=== PATIENT | female | born 1995 | race Caucasian/White ===

== ENCOUNTER → 2017-12-13 07:47 | Outpatient (CLI) | payer OTHER, SELFPAY ==
--- NOTE | 2017-12-13 07:53 | RAD_ITS ---
STUDY: X-RAY - LEFT HAND, ATTENTION LEFT THUMB. REASON FOR EXAM: Female, 22 years old. Pain along the distal aspect of the thumb following injury. TECHNIQUE: 3 view(s) of the finger were obtained. COMPARISON: None. FINDINGS: Normal metacarpal head. Normal metacarpophalangeal joint. Normal proximal phalanx. Normal middle phalanx. Normal distal phalanx. Normal distal interphalangeal joint. RAD/Finger(s) Min 2 Views IMPRESSION: Normal x-ray examination of the finger. Electronically Signed: Federico Caal MD at 15:52 EDT Tel [phone], Service support ,
== END ==
PROVIDERS: Family Provider Family Medicine; PCP Family Medicine; Visit Provider Physician Assistant
DX: S69.92XA Unspecified injury of left wrist, hand and finger(s), initial encounter (principal); X58.XXXA Exposure to other specified factors, initial encounter
CPT/HCPCS: 73140

== ENCOUNTER 2018-03-15 08:40 | Emergency (ER) | payer OTHER, SELFPAY ==
[2018-03-15 08:41] VITALS: BP 152/89; PULSE 91; RESP 20; TEMP 35.5; O2SAT 95; BMI 44.9
[2018-03-15 09:20] VITALS: BP 125/90; PULSE 79; RESP 18; O2SAT 95
--- NOTE | 2018-03-15 09:48 | EKG12_ITS ---
Test Reason : CP Blood Pressure : / mmHG Vent. Rate : 089 BPM Atrial Rate : 089 BPM P-R Int : 132 ms QRS Dur : 086 ms QT Int : 360 ms P-R-T Axes : 031 027 017 degrees QTc Int : 438 ms Normal sinus rhythm Normal ECG Confirmed by BECKY DOHERTY, ELISEO ([id number]), assignment editor RICKI AGUILAR ([id number]) on 03/19/2018 3:44:10 PM Referred By: EDGAR/CLAUDE Confirmed By:ELISEO PENA MD
--- NOTE | 2018-03-15 09:49 | ED.VIS.GEN ---
History of Present Illness Chief Complaint: Chest Pain Informant: Patient Onset: Today, Hours - 2 Context: Gradual Onset - quickly, while sitting at work. no injury. Timing: Continuous Quality: sore/ache Location: central chest. no radiation Current Severity: Moderate Maximum Severity: Moderate Worsened by: palpation, movement, deep breathing Relieved by: rest, breathing easy Associated Symptoms: feels a little sob. otherwise, none. Narrative: No recent leg pain or swelling. No discomfort in her arm, jaw, back. No recent cough or respiratory infection. No nausea or vomiting or palpitations or presyncopal symptoms. 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 Denies any injury or obvious reason for this that she could have had yesterday and did not work yesterday. No recent travel or immobilization or hospitalization or other illness. No recent leg injury. Recent Illness/Hospitalization: No Past Medical History - Allergies and Home Meds Allergies/Adverse Reactions: Allergies No Known Allergies Allergy (Verified 03/15/18 09:49) Primary Care Physician: Aneesh Hauser III, MD [Primary Care Provider] - Past Medical History: None Smoking Status: Never smoker Alcohol: None Drugs: None Review of Systems All systems negative except as indicated Cardiovascular: Reports: Chest pain Respiratory: Reports: Dyspnea Physical Exam Vital Signs/Narrative: Vital Signs Temp Pulse Resp BP Pulse Ox 03/15/18 09:20 79 18 125/90 H 95 03/15/18 08:41 96 F L 91 20 H 152/89 H 95 Inital Vital Signs reviewed: Yes General: Well nourished, Well developed, Obese, - - Well-appearing in no acute distress Head: Normocephalic, Atraumatic Eyes: Perrl, EOMI ENT: Moist mucous membranes, No rhinorrhea Neck: Supple, Nontender Cardiovascular: Regular rate, Regular rhythm, No murmurs. Negative for: Tachycardia Respiratory: No distress, CTA bilaterally, Chest tenderness - Centrally, reproducing her discomfort. Pain also reproduced by adducting her hands together out in front of her against resistance. Abdomen: Soft, Nontender, Nondistended, Normal bowel sounds Back: Nontender, Normal Inspection Extremities: Nontender - Negative Homans, No edema Skin: Normal color, No rash Neurological: Alert, Oriented x3, Cranial nerves II-XII grossly intact, Normal Strength, Normal Sensation, Normal Gait Psychological: Normal affect Diagnostic/Tx/Re-eval - Rhythm Strip Rhythm Strip: Sinus Rhythm Rate: 89 Ectopy: None - EKG 1 Interpretation: Sinus Rhythm, No Acute Injury Pattern, - - Normal EKG Prior: Unchanged - Medical Decision Making This clearly is chest wall in etiology. Her EKG is normal, her vital signs are normal, her PERC score is 0. She is given a dose of naproxen, she is asking for a note off of work for the rest of the day although I think physically she is able to go back. Recommend [id number] NSAIDs, other measures of supportive care, follow-up as needed if persistent. ED Disposition - Plan for ED Patient: Disposition: Home or Assisted Living Chief Complaint: Chest Pain Diagnosis: Chest wall pain Instructions: ED Chest Pain Costochondritis Referrals: Aneesh Hauser III, MD [Primary Care Provider] - (as needed if not improved in 5 days) Additional Instructions: ibuprofen or aleve as needed for pain
[2018-03-15] MEDS: Naproxen 500 MG Tablet PO (09:59)
[2018-03-15 10:00] VITALS: BP 145/85; PULSE 98; RESP 18; O2SAT 99
== END 2018-03-15 10:28 | disposition home or self-care (01) ==
PROVIDERS: Emergency Provider Emergency Medicine; Family Provider Family Medicine; PCP Family Medicine
DX: R07.89 Other chest pain (principal)
CPT/HCPCS: 93005; 99281

== ENCOUNTER 2020-01-26 21:29 | Emergency (ER) | payer OTHER, SELFPAY ==
[2020-01-26 21:30] VITALS: BP 167/99; PULSE 125; RESP 20; TEMP 36.6; O2SAT 95; BMI 53.4
--- NOTE | 2020-01-26 22:10 | RAD_ITS ---
STUDY: X-RAY - LEFT KNEE REASON FOR EXAM: Female, 24 years old. PT C/O LEFT LEG PAIN AFTER FALLING THROUGH STEP TECHNIQUE: 5 view(s) of the knee. COMPARISON: None. FINDINGS: There is soft tissue edema. There are no acute fractures. Bone mineralization is normal. RAD/Knee 4 or More Views IMPRESSION: Soft tissue edema No acute fractures Electronically Signed: Deondre Oneal, at 23:08 EDT Tel , Service support ,
--- NOTE | 2020-01-26 22:15 | RAD_ITS ---
STUDY: X-RAY - LEFT TIBIA AND FIBULA REASON FOR EXAM: Female, 24 years old. PT C/O LEFT LEG PAIN AFTER FALLING THROUGH STEP TECHNIQUE: AP and lateral view(s) of the tibia and fibula were obtained. COMPARISON: None. FINDINGS: There is soft tissue edema. There are no acute fractures. The proximal tibia and fibula are included on the knee views. There is a calcaneal spur. The bone mineralization is normal. RAD/Tibia & Fibula 2 Views IMPRESSION: No acute fractures Soft tissue edema t Electronically Signed: Deondre Oneal, at 23:06 EDT Tel , Service support ,
--- NOTE | 2020-01-26 22:37 | ED.VIS.GEN ---
History of Present Illness Chief Complaint: Lower Extremity Injury Narrative: 24-year-old female was stepping out of her house and the first step broke. She fell through the step scraping her left leg and landing on her left knee. No other injuries. She has mild to moderate pain that is worse with palpation. The onset was sudden. This occurred 1 hour ago. Prior similar symptoms: Yes Capacity - Capacity Assessment Tool Can the patient make a choice & communicate that choice?: Yes Past Medical History - Allergies and Home Meds Allergies/Adverse Reactions: Allergies No Known Allergies Allergy (Verified 01/26/20 21:30) Primary Care Physician: Aneesh Hauser III, MD [Primary Care Provider] - Prior records reviewed: Yes Surgical History: no surgical history Smoking Status: Never smoker Review of Systems General: Denies: Chills, Fever, Sweats Eyes: Denies: Visual changes - bilaterally, Diplopia ENT: Denies: Rhinorrhea, Sore throat Cardiovascular: Denies: Chest pain, Palpitations Respiratory: Denies: Dyspnea, Cough, Dyspnea on exertion Gastrointestinal: Denies: Abdominal pain, Nausea, Vomiting, Diarrhea, Melena, Hematochezia Genitourinary: Denies: Dysuria, Hematuria, Frequency Musculoskeletal: Reports: Extremity Pain. Denies: Back pain Skin: Reports: Abrasions. Denies: Rash, Wounds Neurological: Denies: Headache, Weakness, Numbness Physical Exam Vital Signs/Narrative: Vital Signs Temp Pulse Resp BP Pulse Ox 01/26/20 21:30 98 F 125 H 20 H 167/99 H 95 General: Well nourished, Well developed, No Acute Distress Head: Normocephalic, Atraumatic Eyes: Perrl, EOMI ENT: Moist mucous membranes, No rhinorrhea Neck: Supple, Nontender Cardiovascular: Regular rate, Regular rhythm, No murmurs Respiratory: No distress, CTA bilaterally, Chest nontender Abdomen: Soft, Nontender, Nondistended, Normal bowel sounds Back: Nontender, Normal Inspection Extremities: Nontender, Tenderness - Mild left knee tenderness and proximal left leg tenderness anteriorly. Superficial abrasions. Nothing full-thickness. Skin: Normal color, No rash Neurological: Alert, Oriented x3, Cranial nerves II-XII grossly intact, Normal Strength, Normal Sensation Psychological: Normal affect, Normal Mood Diagnostic/Tx/Re-eval - Medical Decision Making Left knee and left leg plain films interpreted independently by me is negative for fracture. 2 views of the tibia/fibula. 3 views of the knee. Bony structures appear normal. She has no obvious effusion. No instability. No full-thickness lacerations. Normal distal neurovascular examination. Compartments are soft. I advised that she follow-up for repeat imaging if still having pain in 7 to 10 days. Of note, her blood pressure is 167/99. She denies history of hypertension. She has no headache, shortness of breath, or chest pain. Heart rate was 125 on arrival but she states that this was secondary to pain. It is normal on my exam. I did advise her that she follow closely with her doctor to have her blood pressure rechecked and to be checked for hypertension. I discussed the risk of long-term poorly controlled blood pressure. Advised that she check it at home and keep a diary as well. Return precautions explained. ED Disposition - Plan for ED Patient: Disposition: Home or Assisted Living Diagnosis: Contusion of left knee and lower leg, Abrasion, left lower leg, initial encounter, Elevated blood pressure reading Instructions: ED EXTREMITY CONTUSION Lower, ED HBP No Tx Referrals: Aneesh Hauser III, MD [Primary Care Provider] - (alta to check blood pressure)
[2020-01-26 23:08] VITALS: BP 153/117; PULSE 100; RESP 15; O2SAT 97
[2020-01-26] MEDS: Naproxen 500 MG Tablet PO (23:11)
== END 2020-01-26 23:14 | disposition home or self-care (01) ==
LOC: ED 23:02
PROVIDERS: Emergency Provider Emergency Medicine; PCP Family Medicine
DX: S80.02XA Contusion of left knee, initial encounter (principal); S80.12XA Contusion of left lower leg, initial encounter; W13.8XXA Fall from, out of or through other building or structure, initial encounter; Y93.9 Activity, unspecified; Y92.008 Other place in unspecified non-institutional (private) residence as the place of occurrence of the external cause; Y99.9 Unspecified external cause status; R03.0 Elevated blood-pressure reading, without diagnosis of hypertension
CPT/HCPCS: 73564; 73590; 99283

== ENCOUNTER 2020-08-25 10:00 | Outpatient (RCR) | payer OTHER, SELFPAY ==
--- NOTE | 2020-07-30 12:54 | HP.PTEVAL_ITS ---
Patient's Visit Information KALI MINA is a 24 year old F referred to Physical Therapy by Dr. Benny Dao DDS with a diagnosis of TMJ. Date of Evaluation: 07/27/20 Physical Therapist: Barb Rose PT, Cert MDT - Visit Plan Frequency: 2-3x /Week Duration: 4-6 Weeks Plan: RIGHT TMJ US, MOBILIZATION, ROM AND STRENGTHENING TO HELP MEET SET GOALS. 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 Disability: NO. Present symptoms: RIGHT JAW PAIN. RIGHT EAR PAIN INSIDE - LIKE AN EARACHE. HEADACHES. NO NECK PAIN. DENIES BELEN UE PAIN, NUMBNESS AND TINGLING. JAW HAS LOCKED UP TWICE. ONCE TWO WKS AGO AND ONCE LAST NIGHT. Present since: FEBRUARY 2020. Pain Scale: Worst - 10/10 Least - 0/10. Currently: 0/10. Commenced as a result of: PATIENT REPORTS SHE GOT SICK IN FEBRUARY WITH A SORE THROAT AND TOOK A Z-KARUNA BUT HER EAR HAS CONTINUED TO HURT. Symptoms at onset: THROAT AND EAR PAIN. Worse: IF I MAKE MY JAW CLICK, CHEWING, LYING ON RIGHT SIDE, COLD AIR. Better: PREDNISONE AND MUSCLE RELAXERS. ADVIL. PUTTING FINGER IN EAR TO PUT PRESSURE ON IT. Disturbed sleep: YES. Previous history/Previous treatment: JAW HAS CLICKED EVER SINCE BRACES WERE REMOVED ABOUT AGE 16 BUT DIDN'T HURT UNTIL NOW. This episode: MEDICINES. Dizziness: NO. Tinnitis: SOMETIMES. Nausea: NO. Shortness of Breath: NO. Difficulty Swollowing: NO. SOMTIMES EAR POP'S WHEN SWOLLOWING. Gait: NORMAL. Accidents: FALL - JANUARY OF 2020 FELL THROUGH A PORCH - BRUISED REALLY BAD BUT NO FRACTURES. WENT TO ED AND HAD KNEE AND LEG X-RAYS. HIT HEAD ON RAILING OF PORCH. Unexplained weight loss: NO. Imaging: NO. PMH/Recent major surgery: UNREMARKABLE. OTHER: PATIENT REPORTS SHE [facility] FOR HER SORE THROAT AND EAR PAIN IN FEBRUARY 2020 AND TOOK A Z-KARUNA. HER THROAT PAIN WENT AWAY BUT NOT HER EAR PAIN. HER JAW HAS CLICKED EVER SINCE SHE GOT HER BRACES OFF BUT IT NEVER HURT UNTIL NOW. STATES THAT WHEN HER EAR KEPT HURTING HER MOM SENT HER TO DR. DAO. HER RECOMMENDED PT AND IF IT DOESN'T GET BETTER AN MRI. PATIENT REPORTS THAT AFTER THE FIRST TIME SHE SAW DR. DAO HER JAW SWELLED UP THAT NIGHT AND SHE TOLD DR. DAO AT FOLLOW UP. - Pain RIGHT JAW Pain Intensity (Out of 10): 5 Comment: OPENING MOUTH - Objective Sitting Posture/Standing Posture: POOR. Active Correction of posture: NE. Other Observations: INDEP GAIT AND TRANSFERS. Motor deficit: BELEN UES 5/5. Sensory deficit: BELEN UE LIGHT TOUCH SENSATION INTACT AND SYMMETRICAL. ROM deficit: BELEN UE'S WFL. Reflexes: NT. Dural Signs: NEGATIVE. Cervical Mvmt Loss: Flex: NIL. Pro: NIL. Ext: NIL. Ret: NIL. RSB: NIL. LSB: NIL. R Rot: NIL. L Rot: NIL. Postural strength: POOR. Palpation: TENDERNESS WITH LIGHT PALPATION OF THE RIGHT TMJ REGION. NO PALPABLE CLICKING WITH INITIAL JAW EXCURSION TESTING BUT CLICKING WHEN PATIENT OPENS WIDER. OTHER: JAW EXCURSION 1.5CM. NO DEVIATION NOTED. TREATMENT: HOME INSTRUCTION FOR TMJ ICE MASSAGE AND MASSETER MASSAGE. INITIATION OF HEP WITH GENTLE JAW ISOMETRICS RIGHT, LEFT AND FORWARD. WRITTEN INSTRUCTIONS GIVEN. - Goals Goal 1:: DECREASE C/O HEAD, EAR AND JAW PAIN Goal Time Frame: 4-6 Weeks Goal 2:: IMPROVE CHEWING, TALKING AND SLEEP FUNCTION Goal Time Frame: 4-6 Weeks Goal 3:: INSTRUCT IN PROPHYLAXIS Goal Time Frame: 4-6 Weeks - Anticipated Interventions Patient/Client Instruction: Educate patient on: Condition, Plan of Care, Risk Factors For the Purpose of:: To improve self management Therapeutic Exercise to Include: Strength training, Postural training, Flexibilty training, Passive ROM, Active ROM, Scapular Strength/Stabilization For the Purpose of:: To decrease pain, To increase ROM, To improve muscle performance and motor function, To increase tolerance to activity/condition/position, To improve ability of physical actions for conor e/community/work/leisure Ultrasound (thermal/non thermal): Yes For the Purpose of:: To decrease pain, To decrease swelling/inflammation, To increase ROM, To improve nutrient delivery to tissue Thank you for the opportunity to evaluate your patient. For Medicare and Medicare HMO plans, please review the plan of care and approve it. It will need to be FAXED BACK to us at [phone] for Medicare purposes. For Medicare only, by signing this I certify the plan of care. Please let me know if there are questions or concerns regarding this plan of care. Physician Signature: Date:
--- NOTE | 2020-11-15 19:38 | HP.PT.NRP ---
KALI MINA was seen in my office for initial evaluation on 07/27/20. The following Plan of Care was established for this patient: Initial Frequency: 2-3x /Week Initial Duration: 4-6 Weeks Patient/Client Instruction: Educate patient on: Condition, Plan of Care, Risk Factors For the Purpose of:: To improve self management Therapeutic Exercise to Include: Strength training, Postural training, Flexibilty training, Passive ROM, Active ROM, Scapular Strength/Stabilization For the Purpose of:: To decrease pain, To increase ROM, To improve muscle performance and motor function, To increase tolerance to activity/condition/position, To improve ability of physical actions for home/community/work/leisure Ultrasound (thermal/non thermal): Yes For the Purpose of:: To decrease pain, To decrease swelling/inflammation, To increase ROM, To improve nutrient delivery to tissue This patient was last seen in our office 08/25/20. Pertinent comments regarding their Physical therapy will appear below: This patient has not returned to Physical Therapy and is appropriate to return to MD for further follow-up as needed. At this point I will be discontinuing this patient from physical therapy. I would be happy to see this patient again in the future if found appropriate by the physician. Thank you! Barb Rose, PT, Cert MDT
== END 2020-08-25 19:00 | disposition home or self-care (01) ==
LOC: PT 10:00
PROVIDERS: PCP Family Medicine; Referring Provider Dentist Oral and Maxillofacial Surgery; Visit Provider Dentist Oral and Maxillofacial Surgery
DX: M26.601 Right temporomandibular joint disorder, unspecified (principal); M24.89 Other specific joint derangement of other specified joint, not elsewhere classified
CPT/HCPCS: 97014; 97110; 97161; 97530; G0283

== ENCOUNTER 2020-09-15 20:56 | Emergency (ER) | payer OTHER, SELFPAY ==
[2020-09-15 20:57] VITALS: BP 151/79; PULSE 104; RESP 18; TEMP 37; O2SAT 97; BMI 51.6
[2020-09-15 21:26] VITALS: O2SAT 97
--- NOTE | 2020-09-15 21:48 | RAD_ITS ---
STUDY: X-RAY CHEST REASON FOR EXAM: Female, 24 years old. Patient covid positive. Patient complaining of shortness of breath and chest pain with breathing. TECHNIQUE: Single frontal view of the chest. COMPARISON: 11/05/2016. FINDINGS: There is persistent elevation of the right hemidiaphragm. There is no new focal consolidation. Normal size heart. Normal mediastinum and chris. Normal visualized pulmonary arteries. Normal visualized aortic arch and descending thoracic aorta. Normal visualized thoracic spine. Normal visualized ribs, clavicles, and shoulders. There is no demonstrated abnormality of the visualized soft tissue structures of the upper abdomen. RAD/Chest 1 View (Portable) IMPRESSION: No acute cardiopulmonary process. Electronically Signed: Rosie Rowell MD at 22:42 EST Tel , Service support ,
[2020-09-15 22:12] LABS: ALB/GLOB Ratio 0.9 RATIO (0.9-2.4); AST(SGOT) 19 U/L (15-37); Alanine Aminotransfer ALT/SGPT 46 U/L (13-56); Albumin, Serum 3.5 g/dL (3.2-5.0); Alkaline Phosphatase 89 U/L (45-117); Anion Gap 5 (5-15); BUN 13 mg/dL (7-18); BUN/Creat Ratio 12.4 RATIO (10-20); Calcium,Total 8.8 mg/dL (8.5-10.1); Chloride 107 mmol/L (98-107); Creatinine, Serum 1.05 mg/dL (0.55-1.02); EST Glomerular Filtration Rate 68 mL/min (>60); Est Glom Filt Rate - Afr Amer 82 mL/min (>60); Estimated Creatinine Clearance 74.34 ml/min; Globulin 4.1 g/dL (2.2-4.2); Glucose 82 mg/dL (74-106); Potassium 3.8 mmol/L (3.5-5.1); Protein, Total 7.6 g/dL (6.4-8.2); Sodium Level 142 mmol/L (136-145)
[2020-09-15 22:30] LABS: Absolute Lymphocyte Count 3.16 X10^3/uL (0.83-4.51); Absolute Neutrophil Count 2.3 X10^3/uL (2.0-7.7); Basophil# 0.04 X10^3/uL; Basophil% 0.7 % (0-1); Eosinophil# 0.09 X10^3/uL; Eosinophils% 1.5 % (0-5); Hematocrit 44.8 % (37-47); Hemoglobin 13.9 g/dL (12.0-15.0); Lymphocyte # 3.16 X10^3/ul (4.0); Lymphocyte % 53.2 % (19-41); Mean Corpuscular Hgb 26.5 pg (27.0-32.0); Mean Corpuscular Volume 85.3 fL (81-99); Mean Platelet Vol. 9.2 fl (6.2-12.0); Monocyte# 0.31 X10^3/uL; Monocyte% 5.2 % (0-10); NRBC Flagged by Analyzer 0 % (0-5); Neutrophil # 2.33 X10^3/uL (2.7-7.7); Neutrophil % 39.2 % (47-70); Platelet Count 349 K/mm3 (150-450); RBC Distribution Width CV 13.4 % (11.6-14.6); RBC Distribution Width SD 41.9 fl (35.1-43.9); Red Blood Count 5.25 M/mm3 (4.2-5.4); White Blood Count 5.9 K/mm3 (4.4-11.0)
--- NOTE | 2020-09-15 22:50 | ED.VISSUMM ---
- ER Visit Summary Date of Service: 09/15/20 Chief Complaint: Shortness of breath History of Present Illness: The patient is a 24 F who presents with shortness of breath that has been getting worse over the past 2 days. Patient had a recent COVID-19 test which was returned as positive today. Patient states she has been having some shortness of breath with going up stairs. Patient also admits to a cough but denies any sputum. Patient admits to a fever of 101 at home. Patient also admits to subjective chills. Patient admits to dull aching pain in her chest. Patient admits to some mild nausea and vomiting. Physical Examination: Vital signs are stable. Patient is afebrile. Patient is in no acute distress. Oral mucosa is pink and moist. Neck is supple. Trachea is midline. There is no JVD. Heart was regular rate and rhythm. Lungs were clear but diminished bilaterally. There is good respiratory effort noted. Abdomen is soft. Bowel sounds are normal. There is no tenderness. Cranial nerves II through XII are intact. There are no focal motor or sensory deficits. Extremities are intact. There is no calf tenderness or edema. Test Results: Portable 1 view chest x-ray was obtained. On my interpretation, lung trujillo are clear. There is normal cardiac silhouette. Bony thorax is normal. There is no acute process noted. Radiologist also interpreted the x-ray and agrees. CBC and comprehensive metabolic profile were obtained and were essentially within normal limits. Emergency Department Course and Treatment: Patient was given 6 puffs of an albuterol inhaler here. Patient was feeling better on reevaluation. Patient was instructed to follow-up with her primary care physician in 3 to 5 days. Patient was instructed to use her inhaler as needed. Patient understood and was agreeable with the plan. All questions were answered. Disposition: Discharge home Impression: 1. COVID-19 This note was generated with [employer] dictation software. It may contain incorrect words, spelling, and punctuation that were not noted in review of the chart prior to signing ED Disposition - Plan for ED Patient: Disposition: Home or Assisted Living Diagnosis: COVID-19 Instructions: Coronavirus Disease 2019 (COVID-19): Overview Referrals: Aneesh Hauser III, MD [Primary Care Provider] - 3-5 Days
[2020-09-15 23:17] VITALS: BP 139/69; PULSE 92; RESP 18; TEMP 37.2; O2SAT 99
== END 2020-09-15 23:17 | disposition home or self-care (01) ==
PROVIDERS: Emergency Provider Emergency Medicine; PCP Family Medicine
DX: U07.1 COVID-19 (principal); R11.2 Nausea with vomiting, unspecified; R51.9 Headache, unspecified; E66.9 Obesity, unspecified
CPT/HCPCS: 71045; 80053; 85025; 99282; A4216

== ENCOUNTER → 2021-03-17 06:14 | Outpatient (CLI) | payer OTHER, SELFPAY ==
--- NOTE | 2021-03-17 06:36 | MRI_ITS ---
HISTORY: TMJ JOINT DISORDER, right sided pain EXAMINATION: MR TMJ(S) TECHNIQUE: MR images of the bilateral temporomandibular joints were obtained in the open and closed position. IV Contrast dosage and agent: None COMPARISON: None FINDINGS: LEFT: [id number] is degraded by motion, particularly in the closed position. Left temporomandibular disc appears anteriorly displaced with slightly exaggerated anterior band in the closed position, reducing appropriately in the open position on sagittal proton density sequences. On GRE the disc is diminutive in appearance possibly anterior displaced in the open position. Normal morphology of the mandibular condyle and mandibular fossa without significant osseous proliferation or erosion. RIGHT: [id number] is degraded by motion, particularly in the closed position. The disc appears diminutive in size the closed position, likely anterior displaced, particularly on closed GRE. Cannot exclude central perforation, series 6 image 26. There is appropriate translation of the disc in the open mouth position. Normal morphology of the mandibular condyle and mandibular fossa without significant osseous proliferation or erosion. Symmetric prominence of bilateral level 1 and level 2 lymph nodes MRI/TMJ/Bilat IMPRESSION: Exam is significantly limited by motion. 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 Cannot exclude right-sided central intermediate zone perforation. Repeat MRI with less motion may be beneficial. Symmetric prominent, likely reactive bilateral cervical lymph nodes. at 1001 Reported and signed by: Billy Smith MD Electronically Signed: Billy Smith MD at 9:59 EDT Tel , Service support ,
== END ==
DX: M26.69 Other specified disorders of temporomandibular joint (principal)
CPT/HCPCS: 70336

== ENCOUNTER → 2022-01-10 | Outpatient (CLI) | payer BC, SELFPAY ==
[2022-01-10 16:50] LABS: Hematocrit 39.9 % (37-47); Hemoglobin 12.5 g/dL (12.0-15.0); Mean Corp Hgb Conc 31.3 g/dL (32-36); Mean Corpuscular Hgb 26.4 pg (27.0-32.0); Mean Corpuscular Volume 84.4 fL (81-99); Mean Platelet Vol. 8.9 fl (6.2-12.0); Platelet Count 420 K/mm3 (150-450); RBC Distribution Width CV 13.8 % (11.6-14.6); RBC Distribution Width SD 42.9 fl (35.1-43.9); Red Blood Count 4.73 M/mm3 (4.2-5.4); White Blood Count 11.2 K/mm3 (4.4-11.0)
[2022-01-10 17:07] LABS: Estradiol 47.3 pg/mL; Follicle Stimulating Hormone 7.3 mIU/mL; Luteinizing Hormone 9.1 mIU/mL; T4 Free Direct 0.94 ng/dL (0.76-1.46); Thyroid Stim Hormone (TSH) 1.75 uIU/mL (0.358-3.74)
== END | disposition home or self-care (01) ==
LOC: WOBLAB 15:32
PROVIDERS: Visit Provider Obstetrics & Gynecology
DX: N93.9 Abnormal uterine and vaginal bleeding, unspecified (principal)
CPT/HCPCS: 36415; 82670; 83001; 83002; 84439; 84443; 85027

== ENCOUNTER → 2022-07-19 | Outpatient (CLI) | payer OTHER, SELFPAY ==
[2022-07-19 10:08] LABS: Lipase 80 U/L (73-393)
== END | disposition home or self-care (01) ==
PROVIDERS: Referring Provider Nurse Practitioner Family; Visit Provider Nurse Practitioner Family
DX: R10.84 Generalized abdominal pain (principal)
CPT/HCPCS: 83690

== ENCOUNTER → 2022-07-29 | Outpatient (CLI) | payer OTHER, SELFPAY ==
[2022-07-29 15:50] LABS: Progesterone Level 7.13 ng/mL (See Comment)
== END | disposition home or self-care (01) ==
LOC: WOBLAB 14:39
PROVIDERS: Visit Provider Obstetrics & Gynecology
DX: Z51.81 Encounter for therapeutic drug level monitoring (principal)
CPT/HCPCS: 36415; 84144

== ENCOUNTER 2022-11-04 07:48 | Emergency (ER) | payer OTHER, SELFPAY ==
[2022-11-04 07:50] VITALS: BP 159/96; PULSE 91; RESP 18; TEMP 36.9; O2SAT 98; BMI 49.7
[2022-11-04] MEDS: Ondansetron 4 MG/2 ML Vial IV (08:25)
[2022-11-04 08:26] LABS: Absolute Lymphocyte Count 1.83 X10^3/uL (0.83-4.51); Absolute Neutrophil Count 2.6 X10^3/uL (2.0-7.7); Basophil# 0.02 X10^3/uL; Basophil% 0.4 % (0-1); Eosinophil# 0.09 X10^3/uL; Eosinophils% 1.8 % (0-5); Hematocrit 44.2 % (37-47); Hemoglobin 13.8 g/dL (12.0-15.0); Lymphocyte # 1.83 X10^3/ul (0.83-4.51); Lymphocyte % 36.7 % (19-41); Mean Corp Hgb Conc 31.2 g/dL (32-36); Mean Corpuscular Hgb 25.9 pg (27.0-32.0); Mean Corpuscular Volume 83.1 fL (81-99); Mean Platelet Vol. 8.6 fl (6.2-12.0); Monocyte# 0.45 X10^3/uL; NRBC Flagged by Analyzer 0 % (0-5); Neutrophil # 2.57 X10^3/uL (2.7-7.7); Neutrophil % 51.7 % (47-70); Platelet Count 442 K/mm3 (150-450); RBC Distribution Width CV 14.3 % (11.6-14.6); RBC Distribution Width SD 43.2 fl (35.1-43.9); Red Blood Count 5.32 M/mm3 (4.2-5.4)
[2022-11-04] MEDS: 0.9% Normal Saline 1,000 ML 1000 ML IV (08:26)
--- NOTE | 2022-11-04 08:37 | EX.ED.DYSGE1 ---
HPI History of Present Illness Chief Complaint: Nausea/Vomiting/Diarrhea Informant: patient Narrative Narrative: Patient is a 27-year-old female presenting with generalized weakness, body aches, vomiting and diarrhea. Patient states her symptoms started 5 days ago with body aches. The following day she developed a fever of 100.8, headache, vomiting and then profuse watery diarrhea. She is continue to have diarrhea just does not feel good. She describes diffuse abdominal pain. Denies any sick contacts. On Monday, 3 days ago she went to urgent care and had a negative COVID and flu test. They did prescribe her Zofran. She is able to keep some fluids down but is not able to do anything else which is why she came to our emergency room. Notes her last menstrual period was this month but it was light and only 2 days that she did not have her period in September. She is not taken home test. Has had slightly increased vaginal discharge but attributes this to all the diarrhea. Denies any recent antibiotics. Denies any foreign travel or history of C. difficile. No other complaints at this time. [facility] Medical History Gastrointestinal problem GERD (gastroesophageal reflux disease) Pneumonia Polycystic bilateral ovaries TMJ (dislocation of temporomandibular joint) Home Medications ondansetron 4 mg disintegrating tablet 4 mg PO Q6H PRN nausea and vomiting #14 tabs 11/04/22 [Rx Last Taken Unknown] Allergy/AdvReac Type Severity Reaction Status Date / Time No Known Allergies Allergy Verified 10/26/22 14:50 Family History Grandmother Arthritis Breast cancer Hypertension Mother Inflammatory bowel disease (Crohn's disease) Grandfather Cancer THROAT AND SKIN Inflammatory bowel disease (Crohn's disease) Myocardial infarction Kidney disease Other Diabetes Social History Smoking Status: Never smoker alcohol intake: never substance use type: does not use what type of physical activity do you participate in: walking ROS ROS ED Constitutional Constitutional ED: Reports chills and fever(s) ENT ENT ED: Denies sore throat Cardiovascular Cardiovascular: Denies chest pain Respiratory/Chest Respiratory/Chest: Denies cough Gastrointestinal Gastrointestinal: Reports abdominal pain, diarrhea, nausea and vomiting Genitourinary Genitourinary ED: Denies dysuria, hematuria or urinary frequency Musculoskeletal Musculoskeletal: Reports myalgias; Denies arthralgias Integumentary Denies rash Neurologic Neurologic: Denies headache(s) or weakness Psychiatric Psychiatric: Denies anxiety EXAM Physical Exam Const Vital Signs: 11/04/22 07:50 11/04/22 11:02 Temperature 98.5 F Temperature Source Temporal Pulse Rate 91 76 Respiratory Rate 18 15 Blood Pressure 159/96 H 138/74 H Blood Pressure Mean 117 Pulse Ox 98 97 Oxygen Delivery Method Room Air Positive well nourished and well developed General Appearance ED: well developed and NAD HEENT Reports dry mucous membranes Mouth ED: Yes dry mucous membranes Mouth: dry mucous membranes Eyes PERRL and EOMs intact bilaterally Neck supple Neck Narrative: No meningeal signs Chest Wall inspection of chest normal and palpation of chest normal Resp normal respiratory effort and clear to auscultation bilaterally Cardio regular rate, regular rhythm and no murmurs GI normal to inspection, nondistended, normoactive bowel sounds Palpation: tender other (Mildly diffuse, no focal area of tenderness) Extremity normal to inspection General Extremety ED: Negative for edema General Extremity: Negative for edema Neuro oriented x3 Sensorium / Orientation: alert Motor Exam: general weakness Psych mental status grossly normal Mood & Affect: anxious Skin no rashes or lesions noted and no wounds MDM MDM MDM Narrative Medical decision making narrative: Patient is evaluated for nausea, vomiting and diarrhea. Symptoms been going on for 5 days now. She appears nontoxic. She does appear mildly dehydrated. Differential includes dehydration, electrolyte abnormality, colitis, gastroenteritis. There is norovirus currently spreading in the community. Patient is given a total of 2 L of IV fluid as well as IV Zofran. On repeat evaluation she is feeling better, repeat abdominal exam is soft and benign and she is tolerating p.o. Serum is negative. She does not have any significant electrolyte abnormalities and her CBC is normal. Lower suspicion for C. difficile she does not have any risk factors however cultures are pending. Patient will be discharged home with instructions to take Pepto-Bismol and given a refill of her Zofran. She is comfortable this plan of care. She is given a work note. She is given return precautions. Patient and mother verbalized agreement and understanding with this plan. Lab Data Attestation: I reviewed the patient's lab results. Labs: Laboratory Results - last 24 hr 11/04/22 11/04/22 11/04/22 08:02 08:02 08:02 WBC 5.0 RBC 5.32 Hgb 13.8 Hct 44.2 MCV 83.1 MCH 25.9 L MCHC 31.2 L RDW Std Deviation 43.2 RDW Coeff of Jassi 14.3 Plt Count 442 MPV 8.6 Immature Gran % (Auto) 0.400 Neut % (Auto) 51.7 Lymph % (Auto) 36.7 [place]ville % (Auto) 9.0 Eos % (Auto) 1.8 Baso % (Auto) 0.4 Absolute Neuts (auto) 2.6 Absolute Lymphs (auto) 1.83 Nucleated RBC % 0 Sodium 138 Potassium 3.6 Chloride 107 Carbon Dioxide 27.0 Anion Gap 4 L BUN 13 Creatinine 0.94 Estim Creat Clear Calc 80.89 Est GFR (MDRD) Af Amer 92 Est GFR (MDRD) Non-Af 76 BUN/Creatinine Ratio 13.8 Glucose 100 Calcium 8.9 Total Bilirubin 0.30 AST 29 ALT 33 Alkaline Phosphatase 86 Total Protein 7.6 Albumin 3.2 Globulin 4.4 H Albumin/Globulin Ratio 0.7 L Lipase 85 Serum , Qual NEGATIVE Discharge Plan Triage Chief Complaint: Nausea/Vomiting/Diarrhea ED Provider: Juanis Bell Dx/Rx/DC Orders Clinical Impression: Abdominal pain, vomiting, and diarrhea Instructions: ED FOOD POIS or G-ENTERITIS [id number] Prescriptions: New ondansetron 4 mg tablet,disintegrating 4 mg PO Q6H PRN (Reason: nausea and vomiting) Qty: 14 0RF Stand Alone Forms: ED Work / School Excuse Primary Care Provider: Shanna Camejo Referrals: Shanna Camejo MD [Primary Care Provider] - Activity Restrictions/Additional Instructions: Your stool studies are pending. Will be contacted if you need further treatment or antibiotics. In the meantime try to drink lots of fluids. He can take [id number] Pepto-Bismol. You been given a new prescription for Zofran. Please take this up to every 6 hours as needed for nausea as he can keep yourself hydrated. Disposition Disposition: Home, Self Care Discharge Date/Time: 11/04/22 11:03
[2022-11-04 08:41] LABS: ALB/GLOB Ratio 0.7 RATIO (0.9-2.4); AST(SGOT) 29 U/L (15-37); Alanine Aminotransfer ALT/SGPT 33 U/L (13-56); Albumin, Serum 3.2 g/dL (3.2-5.0); Alkaline Phosphatase 86 U/L (45-117); Anion Gap 4 (5-15); BUN 13 mg/dL (7-18); BUN/Creat Ratio 13.8 RATIO (10-20); Calcium,Total 8.9 mg/dL (8.5-10.1); Chloride 107 mmol/L (98-107); Creatinine, Serum 0.94 mg/dL (0.55-1.02); EST Glomerular Filtration Rate 76 mL/min (>60); Est Glom Filt Rate - Afr Amer 92 mL/min (>60); Estimated Creatinine Clearance 80.89 ml/min; Globulin 4.4 g/dL (2.2-4.2); Glucose 100 mg/dL (74-106); Lipase 85 U/L (73-393); Potassium 3.6 mmol/L (3.5-5.1); Protein, Total 7.6 g/dL (6.4-8.2); Sodium Level 138 mmol/L (136-145)
[2022-11-04] MEDS: 0.9% Normal Saline 1,000 ML 999 ML IV (09:35)
[2022-11-04 09:49] LABS: Internal QC Validated? YES +Cl - CLEAR BKGD; Pregnancy, Serum, hCG Quali. NEGATIVE Negative
[2022-11-04 11:02] VITALS: BP 138/74; PULSE 76; RESP 15; O2SAT 97
== END 2022-11-04 11:03 | disposition home or self-care (01) ==
PROVIDERS: Emergency Provider Emergency Medicine; PCP Internal Medicine; Visit Provider Emergency Medicine
DX: R11.2 Nausea with vomiting, unspecified (principal); R19.7 Diarrhea, unspecified; R10.9 Unspecified abdominal pain; Z20.822 Contact with and (suspected) exposure to COVID-19
CPT/HCPCS: 80053; 83630; 83690; 84703; 85025; 87493; 87506; 96361; 96374; 99283; J7030; A4216; J2405

== ENCOUNTER → 2022-11-25 | Outpatient (CLI) | payer OTHER, SELFPAY ==
[2022-11-25 15:06] LABS: Absolute Lymphocyte Count 3.45 X10^3/uL (0.83-4.51); Absolute Neutrophil Count 6.6 X10^3/uL (2.0-7.7); Basophil# 0.04 X10^3/uL; Basophil% 0.4 % (0-1); Eosinophil# 0.15 X10^3/uL; Eosinophils% 1.4 % (0-5); Hemoglobin 12.6 g/dL (12.0-15.0); Lymphocyte # 3.45 X10^3/ul (0.83-4.51); Lymphocyte % 32.3 % (19-41); Mean Corp Hgb Conc 30.7 g/dL (32-36); Mean Corpuscular Hgb 26.2 pg (27.0-32.0); Mean Corpuscular Volume 85.2 fL (81-99); Mean Platelet Vol. 8.8 fl (6.2-12.0); Monocyte# 0.45 X10^3/uL; Monocyte% 4.2 % (0-10); NRBC Flagged by Analyzer 0 % (0-5); Neutrophil # 6.55 X10^3/uL (2.7-7.7); Neutrophil % 61.4 % (47-70); Platelet Count 447 K/mm3 (150-450); RBC Distribution Width CV 14.7 % (11.6-14.6); RBC Distribution Width SD 46.3 fl (35.1-43.9); Red Blood Count 4.81 M/mm3 (4.2-5.4); White Blood Count 10.7 K/mm3 (4.4-11.0)
[2022-11-25 16:06] LABS: ALB/GLOB Ratio 0.8 RATIO (0.9-2.4); AST(SGOT) 13 U/L (15-37); Alanine Aminotransfer ALT/SGPT 27 U/L (13-56); Albumin, Serum 3.3 g/dL (3.2-5.0); Alkaline Phosphatase 92 U/L (45-117); Anion Gap 6 (5-15); BUN 16 mg/dL (7-18); BUN/Creat Ratio 20.3 RATIO (10-20); Calcium,Total 8.9 mg/dL (8.5-10.1); Chloride 107 mmol/L (98-107); Creatinine, Serum 0.79 mg/dL (0.55-1.02); EST Glomerular Filtration Rate 93 mL/min (>60); Est Glom Filt Rate - Afr Amer 112 mL/min (>60); Globulin 4.3 g/dL (2.2-4.2); Glucose 77 mg/dL (74-106); LDH 174 U/L (84-246); Protein, Total 7.6 g/dL (6.4-8.2); Sodium Level 140 mmol/L (136-145)
[2022-11-25 16:39] LABS: Erythrocyte Sedimentation Rate 22 mm/hr (0-30)
[2022-11-28 14:08] LABS: Anti-Centromere B Ab <0.2 AI (0.0-0.9); Anti-Chromatin <0.2 AI (0.0-0.9); Anti-Jo <0.2 AI (0.0-0.9); Anti-Scleroderma-70 AB 0.5 AI (0.0-0.9); RNP Ab 0.5 AI (0.0-0.9); SJOGREN'S Anti-SS-A test < 0.2 AI (0.0-0.9); SJOGREN'S Anti-SS-B test < 0.2 AI (0.0-0.9); Smith Ab <0.2 AI (0.0-0.9)
[2022-11-28 15:08] LABS: Endomysial Antibody IgA Negative (Negative)
[2022-11-28 16:25] LABS: Anti-dsDNA Ab 1 IU/mL (0-9)
[2022-11-28 16:26] LABS: Immunoglobulin A 250 mg/dL (87-352); t-Transglutaminase IgA <2 U/mL (0-3)
[2022-11-30 04:07] LABS: Albumin 3.4 g/dL (2.9-4.4); Alpha-1-Globulins 0.3 g/dL (0.0-0.4); Alpha-2-Globulins 1.1 g/dL (0.4-1.0); Cytoplasmic Ab (C-ANCA) <1:20 titer (Neg:<1:20); Gamma Globulin 1.2 g/dL (0.4-1.8); Immunoglobulin A 253 mg/dL (87-352); Immunoglobulin E 35 IU/mL (6-495); Immunoglobulin G 1163 mg/dL (586-1602); Immunoglobulin M 135 mg/dL (26-217); PROEL- TOTAL PROTEIN 7.2 g/dL (6.0-8.5)
[2022-11-30 10:39] LABS: Perinuclear Ab (P-ANCA) <1:20 titer (Neg:<1:20)
== END | disposition home or self-care (01) ==
PROVIDERS: PCP Internal Medicine; Visit Provider Internal Medicine Gastroenterology
DX: K52.9 Noninfective gastroenteritis and colitis, unspecified (principal)
CPT/HCPCS: 36415; 80053; 82784; 82785; 83516; 83615; 84165; 85025; 85652; 86140; 86225; 86235; 86255; 86256; 86334

== ENCOUNTER 2022-11-29 08:31 | Emergency (ER) | payer OTHER, SELFPAY ==
[2022-11-29 08:33] VITALS: BP 140/102; PULSE 101; RESP 18; TEMP 37.2; O2SAT 99; BMI 50.5
--- NOTE | 2022-11-29 08:42 | RAD_ITS ---
STUDY: X-RAY CHEST REASON FOR EXAM: Female, 27 years old. cp TECHNIQUE: PA and lateral views of the chest. COMPARISON: Comparison is made with prior study dated September 15, 2020. FINDINGS: Stable elevation of the anterior aspect of the right hemidiaphragm. The lungs are clear and expanded. There is no demonstrated pleural abnormality. Normal size heart. Normal mediastinum and chris. Normal visualized pulmonary arteries. Normal visualized aortic arch and descending thoracic aorta. Normal visualized thoracic spine. Normal visualized ribs, clavicles, and shoulders. There is no demonstrated abnormality of the visualized soft tissue structures of the upper abdomen. RAD/Chest PA and Lateral IMPRESSION: Normal x-ray examination of the chest. Electronically Signed: Federico Caal MD at 9:31 EDT ,
--- NOTE | 2022-11-29 08:43 | EDS_ITS ---
HPI History of Present Illness Chief Complaint: Shortness of Breath Narrative Narrative: Patient had upper respiratory symptoms over the weekend, she had quite a bit of cough which has improved however now she has left-sided chest pain. It is parasternal on the left worse with palpation or movement. She said she had some shortness of breath although she only has shortness of breath when she tries to take a deep breath. She has no lower extremity edema or calf pain no back pain or tearing sensation no DVT or PE risk factors no recent travel history. [facility] Medical History Gastrointestinal problem GERD (gastroesophageal reflux disease) Pneumonia Polycystic bilateral ovaries TMJ (dislocation of temporomandibular joint) Home Medications ondansetron 4 mg disintegrating tablet 4 mg PO Q6H PRN nausea and vomiting #14 tabs 11/04/22 [Rx Last Taken Unknown] naproxen 500 mg tablet (Naprosyn) 500 mg PO BID PRN pain #20 tabs 11/29/22 [Rx Last Taken Unknown] Allergy/AdvReac Type Severity Reaction Status Date / Time No Known Allergies Allergy Verified 11/29/22 08:33 Family History Grandmother Arthritis Breast cancer Hypertension Mother Inflammatory bowel disease (Crohn's disease) Grandfather Cancer THROAT AND SKIN Inflammatory bowel disease (Crohn's disease) Myocardial infarction Kidney disease Other Diabetes Social History Smoking Status: Never smoker alcohol intake: never substance use type: does not use what type of physical activity do you participate in: walking ROS ROS ED ROS Narrative Past medical history: Reviewed Medications: Reviewed Social history: Noncontributory Review of systems: All systems negative except as indicated General: No fever ENT: No upper airway congestion, normal voice Neck: No neck pain Cardiovascular: As in HPI Respiratory: As in HPI Gastrointestinal: No abdominal pain, nausea vomiting or diarrhea Genitourinary: No dysuria Musculoskeletal: Denies myalgias no difficulty with ambulation EXAM Physical Exam Narrative Exam Narrative: Physical exam General: Patient appears somewhat uncomfortable Head: Normocephalic, Atraumatic Eyes: Conjunctiva not pale ENT: Moist mucous membranes Neck: Supple, Nontender, No lymphadenopathy Cardiovascular: Regular rate, Regular rhythm Chest wall: Quite reproducible left parasternal chest pain. No rash Respiratory: No distress, CTA bilaterally Abdomen: Soft, Nontender, Nondistended Back: Nontender, Normal Inspection. Negative for: CVA tenderness Extremities: Nontender, No edema Skin: Normal color, No rash Neurological: Alert, Normal Strength, Normal Sensation Const Vital Signs: 11/29/22 08:33 11/29/22 08:56 Temperature 99 F Temperature Source Temporal Pulse Rate 101 H Respiratory Rate 18 Respiratory Effort Normal Non-Labored Respiratory Depth Normal Respiratory Pattern Normal Blood Pressure 140/102 H Blood Pressure Mean 114 Pulse Ox 99 Oxygen Delivery Method Room Air Room Air MDM MDM MDM Narrative Medical decision making narrative: A. Problems addressed. Pain was addressed and improved with Toradol. I addressed her concerns about cardiac etiology or lung etiology all of which were unfounded see below. B. B. Amount and/or complexity of the data 1. I thought about about blood work and troponin however she is young she has reproducible chest wall pain. I also thought about a D-dimer however signs and symptoms point towards costochondritis and not a PE. I discussed the patient with mother who was in the room 2. Independent interpretation of test Telemetry: Sinus rhythm with a rate in the 90s without ectopy. C. Patient was seen by me in the emergency department. I have considered the following differential diagnoses however I was able to exclude all of these through a thorough history and physical exam as well as EKG. I do not believe lab testing is needed: PE or any thromboembolic etiologies, myocardial infarction, aortic dissection, esophageal rupture, pneumothorax, musculoskeletal emergencies, upper abdominal pathologies such as pancreatitis, cholecystitis or choledocholithiasis, as well as ruptured bowel. Radiography Diagnostic Testing: Clinical Impression(s) from Imaging Studies Chest X-Ray 11/29/22 08:42 IMPRESSION: Normal x-ray examination of the chest. Electronically Signed: Federico Caal MD at 9:31 EDT , Chest x-ray two-view interpreted by me as normal EKG Initial EKG: Comments: Sinus rhythm with a rate of 97. Normal VT and QTc intervals. No ischemic changes. No change from March 15, 2018. Interpreted by emergency doctor Discharge Plan Triage Chief Complaint: Shortness of Breath ED Provider: Danie Bender Dx/Rx/DC Orders Clinical Impression: Chest pain, Acute chest wall pain, Acute costochondritis Instructions: Costochondritis Prescriptions: New naproxen [Naprosyn] 500 mg tablet 500 mg PO BID PRN (Reason: pain) Qty: 20 0RF No Action ondansetron 4 mg tablet,disintegrating 4 mg PO Q6H PRN (Reason: nausea and vomiting) Qty: 14 0RF Primary Care Provider: Shanna Camejo Referrals: Shanna Camejo MD [Primary Care Provider] - 3-5 Days Disposition Disposition: Home, Self Care
[2022-11-29] MEDS: Ketorolac 30 MG/ML Syringe IM (08:53)
[2022-11-29 08:56] VITALS: O2SAT 97
[2022-11-29 09:51] VITALS: BP 134/63; PULSE 75; RESP 16; O2SAT 98
== END 2022-11-29 09:52 | disposition home or self-care (01) ==
PROVIDERS: Emergency Provider Emergency Medicine; PCP Internal Medicine; Visit Provider Emergency Medicine
DX: R06.02 Shortness of breath (principal); R07.89 Other chest pain; M94.0 Chondrocostal junction syndrome [Tietze]
CPT/HCPCS: 71046; 93005; 96372; 99282

== ENCOUNTER 2023-01-31 11:32 | Day surgery (SDC) | payer OTHER, SELFPAY ==
--- NOTE | 2023-01-31 11:46 | PCM.HP.BLA ---
History and Physical Date of Admission: 01/31/23 ?27 F who presents to the office today for [facility] ED 11.04.22 with generalized weakness, body aches, N/V/D starting 5 days prior with later development of low-grade fever. Biochemical workup and stool studies performed; imaging not indicated. Received IVF and discharged with pepto-bismol and Zofran. ?Biochemical?CBC, CMP, without pertinent abnormality. ? Stool lactoferrin, EP, C.difficile WNL. *BGI established 11.25.22. Reflux followed by N/V and lower abdominal cramping continue to be a difficulty for several months/year occurs 1-2 times a week; will interrupt sleep but is not limited to nocturnal; triggers include diet. Lying flat on back is helpful; showers/bathes intensify symptoms. BM are soft and frequent up to 10+/day. Diarrhea from ED has resolved and was not present before, suspect viral illness. PCP from [facility] provided bentyl which has been helpful with the cramping. Admits to depression/anxiety which may play a factor. No major life changes.??? Mother has Crohn? disease ROS Const Constitutional: No body ache, chills, excessive sweating, fatigue, fever(s), frequent falls, headache(s), snoring, weakness, weight change, sleep problems or change in appetite Eyes Eyes: No blurry vision, change in vision, eye pain or Light sensitivity ENT ENT: No abnormal hearing, ear or mastoid pain, tinnitus, nasal congestion, headache(s), neck pain or sore throat Resp Respiratory: No cough, shortness of breath, snoring or wheezing Cardio Cardiology: No chest pain at rest, chest pain with exertion, excessive sweating, shortness of breath, dyspnea on exertion, lightheadedness, orthopnea or palpitations Gastro GI: No abdominal pain, change in bowel habits, constipation, cramping, diarrhea, Vomiting blood/hematemesis, vomiting or other Genitourinary-Female: No burning urination, painful urination, urinary incontinence, blood in urine or abnormal vaginal bleeding Musc Musculoskeletal: No abnormal gait, joint pain, back pain, limited range of motion, neck pain, numbness or tingling Skin Skin: No dry skin, redness, lesions, itchy eyes, rash or wounds Breast Breast: No change in breast shape, breast lump, breast pain, breast skin changes, breast swelling, nipple discharge or other Neuro Neurology: No abnormal gait, abnormal hearing, abnormal speech, dizziness, weakness, frequent falls, headache(s), memory loss, numbness or tingling Psych Psychiatric: No anxiety, No change in appetite, No depression, No memory loss and No Thoughts of harming yourself/Others Endo Endocrine: No cold intolerance, excessive sweating, fatigue, flushing, heat intolerance, increased thirst/drinking, increased hunger or weight change Aller/Imm Allergy/Immunologic: No itchy eyes, seasonal allergy symptoms, hives or wheezing Inocencio/Lymp Hematologic/Lymphatic: No easy bleeding, easy bruising, enlarged lymph nodes or other Exam Const General: cooperative and comfortable Nutritional Appearance: average body habitus and well nourished HENMT Head: normal to inspection Ears: hearing grossly normal bilaterally Nose: external nose normal Face and sinus: normal facial exam Mouth: oral mucosae normal Throat: posterior oropharynx normal Eyes General: appearance normal, both eyes and all related structures Neck Neck: normal visual inspection Chest Chest palpation & inspection: normal inspection of the chest and normal palpation of entire chest wall Resp Effort & Inspection: normal respiratory effort Auscultation: Bilateral: Clear to Auscultation Cardio Palpation: normal PMI Rate: regular rate Rhythm: regular rhythm GI Inspection: normal to inspection Auscultation: normal bowel sounds Percussion: normal to percussion Palpation: no hepatosplenomegaly Skin General: no rashes or lesions noted Neuro General: patient alert Extrem General: normal to inspection Psych Affect: normal affect Quality Reporting Tobacco Screening ([facility] 138) Smoking Status: Never smoker Assessment and Plan Assessment and Plan (1) Frequent stools: ?Status:?Chronic ?Plan: Differential diagnosis for frequent stools does include inflammatory bowel disease, osmotic diarrhea, secretory diarrhea secondary to infectious diarrhea, microscopic colitis, due to bowel syndrome with diarrhea, exocrine pancreatic insufficiency.? She should undergo imaging and biochemical testing.? We will also perform [facility] SGI to see if she does have any antibodies for Crohn's disease.? Once I have more information then further recommendations to follow. ? ? ? Orders: Orders Comprehensive Metabolic Profil Today K52.9 - Noninfective gastroenteritis and colitis, unspecified ? CRP Today K52.9 - Noninfective gastroenteritis and colitis, unspecified ? LDH Today K52.9 - Noninfective gastroenteritis and colitis, unspecified ? CBC W/Diff, Automated Today K52.9 - Noninfective gastroenteritis and colitis, unspecified ? Erythrocyte Sed Rate Today K52.9 - Noninfective gastroenteritis and colitis, unspecified ? EMETERIO Comprehensive Panel Today K52.9 - Noninfective gastroenteritis and colitis, unspecified ? Calprotectin, Stool Today K52.9 - Noninfective gastroenteritis and colitis, unspecified ? Stool Lactoferrin/WBC Today K52.9 - Noninfective gastroenteritis and colitis, unspecified ? ANCA Today K52.9 - Noninfective gastroenteritis and colitis, unspecified ? Celiac Disease Profile Today K52.9 - Noninfective gastroenteritis and colitis, unspecified ? Immunoglobulins G/A/M/E Today K52.9 - Noninfective gastroenteritis and colitis, unspecified ? THERESE + Protein Elect, Serum Today K52.9 - Noninfective gastroenteritis and colitis, unspecified ? ENTERIC PATHOGEN PANEL STOOL Today K52.9 - Noninfective gastroenteritis and colitis, unspecified, K58.9 - Irritable bowel syndrome without diarrhea ? CDIFF (PCR) Today K52.9 - Noninfective gastroenteritis and colitis, unspecified ? Pancreatic Elastase, Fecal Today K52.9 - Noninfective gastroenteritis and colitis, unspecified ? OVA+PARA w/Giardia EIA [id number] Today K52.9 - Noninfective gastroenteritis and colitis, unspecified ? Miscellaneous Lab Procedure Today K52.9 - Noninfective gastroenteritis and colitis, unspecified ? I have examined the patient and the H&P has been reviewed. There are no clinical changes since date of exam.
[2023-01-31 11:54] VITALS: BP 137/87; PULSE 86; RESP 16; TEMP 36.4; O2SAT 98; BMI 49.5
[2023-01-31 11:59] LABS: Internal QC Validated? YES +Cl - CLEAR BKGD; Pregnancy, Urine Negative Negative
[2023-01-31] MEDS: Lactated Ringers 1,000 ML 15 ML IV (12:03)
--- NOTE | 2023-01-31 12:45 | COLBX_PTH ---
PATIENT: KALI MINA LOC: EN U#:[id number] AGE/SX: 27/F ROOM: RE01/31/[address]: Dr. Aaron Mera DO : 1995 BED: DIS: 01/31/2023 SPEC #: [id number] RECD: 01/31/23 15:02 STATUS: NERY RELillie #: [id number] JAYLA: 01/31/23 12:[address]: Aaron Mera DEPT: SURGICAL PATHOLOGY RECD BY: Ashlee Padilla ENTERED: 02/01/23 10:43 SP TYPE: COLON BX OTHR DR: Dr. Shanna Camejo MD Tissues: A - Duodenum, NOS B - Gastric mucous membrane C - Ileum, NOS D - COLON BIOPSY Procedures: Special Stain Group II Surgery Specimen Level IV Alcian Blue/PAS (control) HEADER OPERATION: Colonoscopy, EGD ([facility]) PRE-OP DIAGNOSIS: Frequent stools TISSUE SUBMITTED: A ? Duodenum biopsy, B ? Gastric antrum, H. pylori and path, C ? Terminal ileum biopsy, D ? Random colonic biopsy MICROSCOPIC DIAGNOSIS A. 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 B. Gastric antrum, biopsy: Chronic gastritis. Focal intestinal metaplasia. No evidence of dysplasia. See comment. C. Terminal ileum, biopsy: No pathologic change. D. Colon, random biopsy: No pathologic change. AM:ganga 02/02/2023 COMMENT B. The results of immunohistochemistry for Helicobacter pylori will be reported separately ([id number]). Immunohistochemistry ([id number]) for P53 and Ki-67 will be performed and results will be reported separately. Alcian blue/PAS stain with matched control supports the above diagnosis. MICROSCOPIC DESCRIPTION Slides are reviewed. GROSS DESCRIPTION A - Received in fixative is one container labeled with the patient's name and designated duodenum biopsy. The specimen consists of two irregular fragments of light marrero soft tissue that in aggregate measure 0.8 x 0.4 x 0.1 cm. The specimen is totally submitted in one cassette. B - Received in fixative is one container labeled with the patient's name and designated gastric antrum biopsy. The specimen consists of one irregular fragment of light marrero soft tissue that measures 0.3 x 0.3 x 0.1 cm. The specimen is totally submitted in one cassette. C - Received in fixative is one container labeled with the patient's name and designated terminal ileum biopsy. The specimen consists of multiple irregular fragments of light marrero soft tissue that in aggregate measure 1.5 x 0.3 x 0.1 cm. The specimen is totally submitted in one cassette. D - Received in fixative is one container labeled with the patient's name and designated random colon biopsy. The specimen consists of multiple irregular fragments of light marrero soft tissue that in aggregate measure 1.0 x 0.5 x 0.1 cm. The specimen is totally submitted in one cassette. / SJ:rg 02/01/2023 TC:3 CPT: 42565 x4, 86430
--- NOTE | 2023-01-31 12:45 | IMM_PTH ---
PATIENT: KALI MINA LOC: EN U#:[id number] AGE/SX: 27/F ROOM: RE01/31/[address]: Dr. Aaron Mera DO : 1995 BED: DIS: 01/31/2023 SPEC #: [id number] RECD: 02/01/23 08:37 STATUS: NERY REQ #: [id number] JAYLA: 01/31/23 12:[address]: Aaron Mera DEPT: IMMUNOHISTOCHEMISTRY RECD BY: Nickie Soto ENTERED: 02/01/23 08:37 SP TYPE: IMMUNO OTHR DR: Dr. Shanna Camejo MD Tissues: B - Stomach, NOS Procedures: H Pylori (initial) KI-67 (add) P53 (add) PHYSICIAN & INSTITUTION [place] [id number] SPECIMEN INFORMATION: Tissue Source: B ? Gastric antrum Clinical Info: Frequent stools Specimen Number: [id number] CPT code: 52395, 48721 x2 METHODOLOGY: Deparaffinized sections of prefer/formalin-fixed tissue or PAP/DQ stained slides are incubated with monoclonal/polyclonal antibodies/oligonucleotide probes. Localization is made via biotin free immunoperoxidase method. Appropriate controls are performed and reacted as expected. Results on target cell population are indicated in the following table: RESULTS: ANTIBODY / CLONE RESULT Block B H Pylori (polyclonal) negative P53 (DO-7) negative, wild type pattern Ki-67 (30-9) positive, low These tests were developed and their performance characteristics determined by [facility]. They may not have been cleared or approved by the U.S. Food and Drug Administration. The FDA has determined that such clearance or approval is not necessary. The above immunohistochemical/dualISH markers are ordered and reviewed by the Pathologist. INTERPRETATION: B. Gastric antrum, biopsy: Negative for Helicobacter pylori organisms. No evidence of dysplasia. AM:ganga 02/03/2023
[2023-01-31 13:04] VITALS: BP 137/87; BP 138/80; PULSE 91; RESP 18; TEMP 36.4; O2SAT 100
--- NOTE | 2023-01-31 13:07 | OP.CCLET_ITS ---
01/31/2023 Shanna Camejo [facility] [address] [place] [address] Re : Upper GI endoscopy procedure for Sheela Gonzalez Dear Dr. Camejo This procedure was performed on Tuesday, January 31, 2023. My impressions and recommendations are as follows: Impressions : - Normal esophagus. - Small hiatal hernia. - Erythematous mucosa in the antrum. Biopsied. - Erythematous duodenopathy. Biopsied. Recommendations : - Discharge patient to home. - Resume previous diet. - Continue present medications. - Await pathology results. My findings are described in the full procedure note, which is enclosed. If I can be of further assistance, please feel free to contact me at . Sincerely, Aaron Mera, 01/31/2023 1:07:09 PM This report has been signed electronically.
--- NOTE | 2023-01-31 13:07 | OP.EGD_ITS ---
Patient Name: Sheela Gonzalez Procedure Date: 01/31/2023 12:24 PM Date of : 1995 Age: 27 Procedure: Upper GI endoscopy Indications: Epigastric abdominal pain Providers: Aaron Mera DO Referring MD: Aaron Mera DO Medicines: Monitored Anesthesia Care Patient Profile: This is a 27 year old female. Refer to note in patient chart for documentation of history and physical. Patient has symptoms of acute abdominal cramping and acute epigastric abdominal pain. Complications: No immediate complications. Procedure: Pre-Anesthesia Assessment: - Prior to the procedure, a History and Physical was performed, and patient medications and allergies were reviewed. The patient is competent. The risks and benefits of the procedure and the sedation options and risks were discussed with the patient. All questions were answered and informed consent was obtained. Patient identification and proposed procedure were verified by the physician in the pre-procedure area. Mental Status Examination: alert and oriented. Airway Examination: normal oropharyngeal airway and neck mobility. Respiratory Examination: clear to auscultation. CV Examination: normal. Prophylactic Antibiotics: The patient does not require prophylactic antibiotics. Prior Anticoagulants: The patient has taken no previous anticoagulant or antiplatelet agents. After reviewing the risks and benefits, the patient was deemed in satisfactory condition to undergo the procedure. The anesthesia plan was to use monitored anesthesia care (MAC). Immediately prior to administration of medications, the patient was re-assessed for adequacy to receive sedatives. The heart rate, respiratory rate, oxygen saturations, blood pressure, adequacy of pulmonary ventilation, and response to care were monitored throughout the procedure. The physical status of the patient was re-assessed after the procedure. After obtaining informed consent, the endoscope was passed under direct vision. Throughout the procedure, the patient's blood pressure, pulse, and oxygen saturations were monitored continuously. The pediatric colonoscope was introduced through the mouth, and advanced to the second part of duodenum. The upper GI endoscopy was accomplished without difficulty. The patient tolerated the procedure well. Scope In: 12:37:00 PM Scope Out: 12:42:08 PM Total Procedure Duration Time 0 hours 5 minutes 8 seconds Findings: The examined esophagus was normal. A small hiatal hernia was present. Patchy mildly erythematous mucosa without bleeding was found in the gastric antrum. Biopsies were taken with a cold forceps for histology. Verification of patient identification for the specimen was done. Estimated blood loss was minimal. Patchy mildly erythematous mucosa without active bleeding and with no stigmata of bleeding was found in the duodenal bulb. Biopsies were taken with a cold forceps for histology. Verification of patient identification for the specimen was done. Estimated blood loss was minimal. Clear fluid was found in the gastric body. Fluid aspiration was performed through the scope suction channel. The amount of fluid collected was 100 mL. Impression: - Normal esophagus. - Small hiatal hernia. - Erythematous mucosa in the antrum. Biopsied. - Erythematous duodenopathy. Biopsied. Recommendation: - Discharge patient to home. - Resume previous diet. - Continue present medications. - Await pathology results. Procedure Code(s): --- Professional --- 47619, Esophagogastroduodenoscopy, flexible, transoral; with biopsy, single or multiple CPT copyright 2017 [employer]. All rights reserved. The codes documented in this report are preliminary and upon navy diver review may be revised to meet current compliance requirements. Aaron Mera DO 01/31/2023 1:07:09 PM This report has been signed electronically. Number of Addenda: 0 Note Initiated On: 01/31/2023 12:24 PM
[2023-01-31 13:10] VITALS: BP 135/82; BP 137/87; PULSE 82; RESP 18; O2SAT 100
[2023-01-31 13:15] VITALS: BP 137/87; PULSE 80; RESP 16; O2SAT 100
--- NOTE | 2023-01-31 13:16 | OP.CCLET_ITS ---
01/31/2023 Shanna Camejo [facility] [address] [place] [address] Re : Colonoscopy procedure for Sheela Gonzalez Dear Dr. Camejo This procedure was performed on Tuesday, January 31, 2023. My impressions and recommendations are as follows: Impressions : - The entire examined colon is normal. Biopsied. - The examined portion of the ileum was normal. Biopsied. Recommendations : - Discharge patient to home. - Resume previous diet. - Continue present medications. - Await pathology results. - Repeat colonoscopy to check healing. My findings are described in the full procedure note, which is enclosed. If I can be of further assistance, please feel free to contact me at . Sincerely, Aaron Mera, 01/31/2023 1:15:29 PM This report has been signed electronically.
--- NOTE | 2023-01-31 13:16 | OP.COLON_ITS ---
Patient Name: Sheela Gonzalez Procedure Date: 01/31/2023 12:42 PM Date of : 1995 Age: 27 Procedure: Colonoscopy Indications: Clinically significant diarrhea of unexplained origin, Family history of inflammatory bowel disease in a first-degree relative Providers: Aaron Mera DO Referring MD: Aaron Mera DO Medicines: Midazolam 2 mg IV, Monitored Anesthesia Care Patient Profile: This is a 27 year old female. Refer to note in patient chart for documentation of history and physical. Patient has symptoms of acute abdominal cramping and acute epigastric abdominal pain. Last Colonoscopy: date unknown. Unable to locate last colonoscopy report. Complications: No immediate complications. Procedure: Pre-Anesthesia Assessment: - Prior to the procedure, a History and Physical was performed, and patient medications and allergies were reviewed. The patient is competent. The risks and benefits of the procedure and the sedation options and risks were discussed with the patient. All questions were answered and informed consent was obtained. Patient identification and proposed procedure were verified by the physician in the pre-procedure area. Mental Status Examination: alert and oriented. Airway Examination: normal oropharyngeal airway and neck mobility. Respiratory Examination: clear to auscultation. CV Examination: normal. Prophylactic Antibiotics: The patient does not require prophylactic antibiotics. Prior Anticoagulants: The patient has taken no previous anticoagulant or antiplatelet agents. After reviewing the risks and benefits, the patient was deemed in satisfactory condition to undergo the procedure. The anesthesia plan was to use monitored anesthesia care (MAC). Immediately prior to administration of medications, the patient was re-assessed for adequacy to receive sedatives. The heart rate, respiratory rate, oxygen saturations, blood pressure, adequacy of pulmonary ventilation, and response to care were monitored throughout the procedure. The physical status of the patient was re-assessed after the procedure. After I obtained informed consent, the scope was passed under direct vision. Throughout the procedure, the patient's blood pressure, pulse, and oxygen saturations were monitored continuously. The pediatric colonoscope was introduced through the anus and advanced to the terminal ileum, with identification of the appendiceal orifice and IC valve. The colonoscopy was performed without difficulty. The patient tolerated the procedure well. The quality of the bowel preparation was adequate. Scope In: 12:46:45 PM Scope Withdrawal Time 0 hours 7 minutes 29 seconds Scope Out: 12:56:38 PM Total Procedure Duration Time 0 hours 9 minutes 53 seconds Findings: The perianal and digital rectal examinations were normal. The colon (entire examined portion) appeared normal. Biopsies for histology were taken with a cold forceps from the ascending colon, right colon, left colon, transverse colon, right transverse colon, descending colon, sigmoid colon, rectum and rectosigmoid colon for evaluation of microscopic colitis. Verification of patient identification for the specimen was done. Estimated blood loss was minimal. The terminal ileum appeared normal. Biopsies were taken with a cold forceps for histology. Verification of patient identification for the specimen was done. Estimated blood loss was minimal. Impression: - The entire examined colon is normal. Biopsied. - The examined portion of the ileum was normal. Biopsied. Recommendation: - Discharge patient to home. - Resume previous diet. - Continue present medications. - Await pathology results. - Repeat colonoscopy to check healing. Procedure Code(s): --- Professional --- 26237, Colonoscopy, flexible; with biopsy, single or multiple CPT copyright 2017 [employer]. All rights reserved. The codes documented in this report are preliminary and upon biofuels production manager review may be revised to meet current compliance requirements. Aaron Mera DO 01/31/2023 1:15:29 PM This report has been signed electronically. Number of Addenda: 0 Note Initiated On: 01/31/2023 12:42 PM
[2023-01-31 13:30] VITALS: BP 113/77; BP 137/87; PULSE 86; RESP 16; TEMP 36.3; O2SAT 100
[2023-01-31 13:50] VITALS: BP 137/87
== END 2023-01-31 14:13 | disposition home or self-care (01) ==
LOC: EN 11:32 → AC 11:33
PROVIDERS: Anesthesiology; PCP Internal Medicine; Referring Provider Internal Medicine Gastroenterology; Visit Provider Internal Medicine Gastroenterology
PROC: 0DJD8ZZ Inspection of Lower Intestinal Tract, Via Natural or Artificial Opening Endoscopic (ICD-10-PCS; CPT 45378; principal; 2023-01-31 12:40)
DX: K31.A11 Gastric intestinal metaplasia without dysplasia, involving the antrum (principal); K44.9 Diaphragmatic hernia without obstruction or gangrene; K21.9 Gastro-esophageal reflux disease without esophagitis; E66.9 Obesity, unspecified; K29.50 Unspecified chronic gastritis without bleeding
CPT/HCPCS: 45380; 43239; 81025; 88305; 88313; 88341; 88342; J7120; J2405

== ENCOUNTER → 2023-02-24 | Outpatient (CLI) | payer OTHER, SELFPAY ==
[2023-02-24 14:56] LABS: Estradiol 59.4 pg/mL; Follicle Stimulating Hormone 6.7 mIU/mL; Luteinizing Hormone 4.5 mIU/mL; Prolactin 10.2 ng/mL
[2023-03-02 11:08] LABS: Beef <0.10 kU/L (Class 0); Chocolate <0.10 kU/L (Class 0); Clam <0.10 kU/L (Class 0); Codfish <0.10 kU/L (Class 0); Corn <0.10 kU/L (Class 0); Egg, White <0.10 kU/L (Class 0); Egg, Whole <0.10 kU/L (Class 0); Milk (Cow) <0.10 kU/L (Class 0); Peanut <0.10 kU/L (Class 0); Pork <0.10 kU/L (Class 0); SCALLOP <0.10 kU/L (Class 0); SESAME SEED <0.10 kU/L (Class 0); Shrimp <0.10 kU/L (Class 0); Soybean <0.10 kU/L (Class 0); Walnut, (Food) <0.10 kU/L (Class 0); Wheat <0.10 kU/L (Class 0)
[2023-03-03 21:07] LABS: Albumin 3.2 g/dL (2.9-4.4); Alpha-1-Globulins 0.3 g/dL (0.0-0.4); Estrogen, Total, Serum 155 pg/mL (.); Gamma Globulin 1.1 g/dL (0.4-1.8); Immunoglobulin A 223 mg/dL (87-352); Immunoglobulin G 1135 mg/dL (586-1602); Immunoglobulin M 127 mg/dL (26-217); PROEL- TOTAL PROTEIN 6.7 g/dL (6.0-8.5); Testosterone, % Free 2.49 % (0.50-2.80); Testosterone, Free 0.85 ng/dL (0.10-0.85); Testosterone, Total 34 ng/dL (13-71)
== END | disposition home or self-care (01) ==
LOC: LAB 13:10
PROVIDERS: PCP Internal Medicine; Referring Provider Internal Medicine Gastroenterology; Visit Provider Internal Medicine Gastroenterology
DX: K52.9 Noninfective gastroenteritis and colitis, unspecified (principal); E28.2 Polycystic ovarian syndrome
CPT/HCPCS: 36415; 82670; 82672; 82784; 83001; 83002; 84146; 84165; 84402; 84403; 86003; 86005; 86140; 86334

== ENCOUNTER → 2023-05-23 | Outpatient (CLI) | payer OTHER, SELFPAY ==
[2023-05-23 12:22] LABS: Absolute Lymphocyte Count 3.54 X10^3/uL (0.83-4.51); Absolute Neutrophil Count 5.7 X10^3/uL (2.0-7.7); Basophil# 0.05 X10^3/uL; Basophil% 0.5 % (0-1); Eosinophil# 0.15 X10^3/uL; Eosinophils% 1.5 % (0-5); Hematocrit 41.2 % (37-47); Hemoglobin 12.8 g/dL (12.0-15.0); Lymphocyte # 3.54 X10^3/ul (0.83-4.51); Lymphocyte % 35.4 % (19-41); Mean Corp Hgb Conc 31.1 g/dL (32-36); Mean Corpuscular Hgb 26.2 pg (27.0-32.0); Mean Corpuscular Volume 84.3 fL (81-99); Monocyte# 0.45 X10^3/uL; Monocyte% 4.5 % (0-10); NRBC Flagged by Analyzer 0 % (0-5); Neutrophil # 5.74 X10^3/uL (2.7-7.7); Neutrophil % 57.5 % (47-70); Platelet Count 437 K/mm3 (150-450); RBC Distribution Width CV 14.3 % (11.6-14.6); RBC Distribution Width SD 43.8 fl (35.1-43.9); Red Blood Count 4.89 M/mm3 (4.2-5.4)
[2023-05-23 12:38] LABS: Internal QC Validated? YES +Cl - CLEAR BKGD; Pregnancy, Serum, hCG Quali. NEGATIVE Negative
[2023-05-23 12:46] LABS: Vitamin B12 268 pg/mL (211-911); Vitamin D,25 Hydroxy 33.7 ng/mL
[2023-05-23 12:48] LABS: Hemoglobin A1c 5.5 % (3.8-5.6)
[2023-05-23 13:12] LABS: ALB/GLOB Ratio 0.7 RATIO (0.9-2.4); AST(SGOT) 9 U/L (15-37); Alanine Aminotransfer ALT/SGPT 20 U/L (13-56); Albumin, Serum 3.1 g/dL (3.2-5.0); Alkaline Phosphatase 87 U/L (45-117); Anion Gap 5 (5-15); BUN 12 mg/dL (7-18); BUN/Creat Ratio 14.1 RATIO (10-20); Bilirubin, Direct 0.07 mg/dL (0.00-0.30); Calcium,Total 8.9 mg/dL (8.5-10.1); Chloride 109 mmol/L (98-107); Cholesterol 130 mg/dL (200); Creatinine, Serum 0.85 mg/dL (0.55-1.02); EST Glomerular Filtration Rate 84 mL/min (>60); Est Glom Filt Rate - Afr Amer 102 mL/min (>60); Ferritin 65 ng/mL (8-252); Free T3 2.3 pg/mL (2.18-3.98); Globulin 4.3 g/dL (2.2-4.2); Glucose 86 mg/dL (74-106); High Density Lipoprotein 49 mg/dL; Iron 30 ug/dL (50-170); Iron Binding Capacity,Total 278 ug/dL (250-450); PERCENT IRON SATURATION 10.8 % (15.0-55.0); Potassium 3.8 mmol/L (3.5-5.1); Protein, Total 7.4 g/dL (6.4-8.2); Sodium Level 141 mmol/L (136-145); T4 Free Direct 1.16 ng/dL (0.76-1.46); Thyroid Stim Hormone (TSH) 2.21 uIU/mL (0.358-3.74); Triglycerides 94 mg/dL; Very Low Density Lipoprotein 19 mg/dL (5-40)
== END | disposition home or self-care (01) ==
LOC: LAB 11:16
PROVIDERS: PCP Internal Medicine; Referring Provider Nurse Practitioner Psychiatric/Mental Health; Visit Provider Nurse Practitioner Psychiatric/Mental Health
DX: R53.83 Other fatigue (principal); Z79.899 Other long term (current) drug therapy
CPT/HCPCS: 36415; 80053; 80061; 82248; 82306; 82607; 82728; 82746; 83036; 83540; 83550; 84439; 84443; 84481; 84703; 85025

== ENCOUNTER → 2023-07-04 | Outpatient (CLI) | payer OTHER, SELFPAY ==
--- NOTE | 2023-07-04 07:50 | CT_ITS ---
STUDY: CT ABDOMEN AND PELVIS WITH CONTRAST REASON FOR EXAM: Female, 27 years old. Abdominal pain. Possible irritable bowel syndrome. RADIATION DOSAGE (If Supplied By Facility): CTDIvol = ( 17.07 ) mGy, DLP = ( 1370.21 ) mGycm TECHNIQUE: Transaxial images were obtained from the dome of the diaphragm to the symphysis pubis without oral contrast. Oral and amp;amp; IV Readi-CAT and amp;amp; 100mL Isovue-300 was administered. Sagittal and coronal images were reconstructed. Individualized dose optimization techniques were used for this CT. COMPARISON: None. FINDINGS: The visualized lung bases are unremarkable. The visualized portions of the heart are within normal limits. There is decreased attenuation of the liver consistent with steatosis. Questionable small gallstones in the gallbladder lumen. Normal spleen. Normal pancreas. Normal bilateral adrenal glands. Normal right kidney. Normal left kidney. There is a small hiatal hernia. Normal small intestine. There are scattered colonic diverticula consistent with diverticulosis. The appendix is visualized and appears normal. Normal abdominal aorta. Normal inferior vena cava. There is borderline retroperitoneal lymphadenopathy with enlarged nodes no greater than 10mm in the short axis diameter. Normal urinary bladder. Follicles are seen in both ovaries. There is a small umbilical hernia containing fat. Normal osseous structures. CT/Abdomen/Pelvis WITH Contrast IMPRESSION: Fatty infiltration of the liver. Questionable small gallstones in the gallbladder lumen. Small umbilical hernia containing fat. Electronically Signed: Federico Caal MD at 14:56 EDT ,
== END | disposition home or self-care (01) ==
LOC: CT 07:45
PROVIDERS: PCP Internal Medicine; Referring Provider Internal Medicine Gastroenterology; Visit Provider Internal Medicine Gastroenterology
DX: R10.9 Unspecified abdominal pain (principal); K52.9 Noninfective gastroenteritis and colitis, unspecified
CPT/HCPCS: 74177; Q9967

== ENCOUNTER → 2023-07-11 | Outpatient (CLI) | payer OTHER, SELFPAY ==
[2023-07-14 13:07] LABS: Pancreatic Elastase, Fecal 370 (>200)
[2023-07-15 00:06] LABS: Calprotectin, Stool <5 ug/g (0-120)
== END | disposition home or self-care (01) ==
LOC: LAB 11:06 → LABSPEC 11:08
PROVIDERS: PCP Internal Medicine; Referring Provider Internal Medicine Gastroenterology; Visit Provider Internal Medicine Gastroenterology
DX: K52.9 Noninfective gastroenteritis and colitis, unspecified (principal)
CPT/HCPCS: 82653; 83630; 83993; 87177; 87209; 87329; 87493; 87506

== ENCOUNTER → 2023-07-25 | Outpatient (CLI) | payer OTHER, SELFPAY ==
--- NOTE | 2023-07-25 09:30 | US_ITS ---
STUDY: ABDOMINAL ULTRASOUND - RIGHT UPPER QUADRANT; ELASTOGRAPHY REASON FOR VISIT: Female, 27 years old. Several month history of abdominal pain and nausea and vomiting. TECHNIQUE: Ultrasound evaluation of the right upper quadrant was performed with real-time and static michelle-scale imaging. Point quantification shear wave elastography was performed ([employer]). TECHNICAL QUALITY: Adequate. COMPARISON: Comparison is made with prior CT scan abdomen pelvis dated July 04, 2023. FINDINGS: Liver: The liver is enlarged and measures 21 cm. There is increased echogenicity consistent with fatty infiltration. The bile ducts are within normal limits. There is hepatic color flow. The direction of portal flow is hepatopetal. There is no demonstrated mass lesion. Median liver stiffness measured 4.2 kPa. Gallbladder: Normal distended gallbladder. The gallbladder wall measures 2.0 mm. There is a negative sonographic Duron''s sign. There is no pericholecystic fluid. There are no gallstones. Common Bile Duct (C.B.D.): The common bile duct measures 7 mm. Pancreas: There is normal echogenicity of the visualized pancreas. There is no demonstrated pancreatic mass or cyst. Right Kidney: Normal size of the right kidney. The right kidney measures 12.3 cm x 5.1 cm x 6.9 cm. Normal renal cortex. The right cortex measures 1.1 cm. There is no demonstrated renal mass or cyst. There is no right hydronephrosis. US/ABD Complete w/ Elastography IMPRESSION: 1. Liver stiffness measures 4.2 kPa compatible with F0-F1 (Normal to mild liver fibrosis) Metavir score. 2. Hepatomegaly and fatty liver. Electronically Signed: Federico Caal MD at 12:24 EST ,
== END | disposition home or self-care (01) ==
LOC: US 09:29
PROVIDERS: PCP Internal Medicine; Referring Provider Internal Medicine Gastroenterology; Visit Provider Internal Medicine Gastroenterology
DX: R10.9 Unspecified abdominal pain (principal); K52.9 Noninfective gastroenteritis and colitis, unspecified
CPT/HCPCS: 76700; 76981

== ENCOUNTER → 2023-09-13 | Outpatient (CLI) | payer OTHER, SELFPAY ==
--- NOTE | 2023-09-13 09:41 | NM_ITS ---
CLINICAL: 27-year-old female with history of abdominal pain. RADIONUCLIDE HEPATOBILIARY SCINTIGRAPHY COMPARISON: Abdominal ultrasound report 07/25/2023 FINDINGS: Following the intravenous administration of 5.8 mCi of 99m Tc Mebrofenin, hepatobiliary images reveal: 1. Relatively prompt and homogeneous radiopharmaceutical concentration is noted by a normal sized liver. No parenchymal defects are identified. 2. Gallbladder activity is identified at 15 minutes post radiopharmaceutical administration. 3. Small intestinal tract is not visualized during 60 minutes of pre-CCK sequential imaging. Small bowel activity is identified following the administration of cholecystokinin. 4. Washout of the radiopharmaceutical by the hepatic parenchyma appears qualitatively normal. Cholecystokinin (0.02 ug/kg) was administered intravenously over a 30-minute period. The post CCK gallbladder ejection fraction calculated at 20 minutes following Cholecystokinin administration was noted to be 88.0 % (normal greater than 35%). During 30 minutes of post CCK imaging, there is no scintigraphic evidence of reflux of the radiotracer into the common hepatic duct or refilling of the gallbladder. NM/Hepatobilliary Img w/Pharm Int IMPRESSION: 1. NORMAL 99m Tc Mebrofenin hepatobiliary imaging examination with Cholecystokinin. A. A gallbladder ejection fraction calculated to be greater than 35% following the administration of Cholecystokinin makes the probability of functional hepatobiliary disease (gallbladder and/or sphincter of Oddi dyskinesia) and/or organic hepatobiliary disease (chronic acalculous cholecystitis and/or cystic duct syndrome) to be low. (Steve Gomez al, Journal of Nuclear Medicine 32:1695, 1991). Electronically Signed: Jacob Ardon DO at 11:13 EST ,
== END | disposition home or self-care (01) ==
LOC: NM 09:38
PROVIDERS: PCP Internal Medicine; Referring Provider Internal Medicine Gastroenterology; Visit Provider Internal Medicine Gastroenterology
DX: R10.84 Generalized abdominal pain (principal)
CPT/HCPCS: 78227; A9537; J2805

== ENCOUNTER → 2023-09-21 | Outpatient (CLI) | payer OTHER, SELFPAY ==
--- OUTSIDE RECORDS SUMMARY | 2023-09-21 15:27 | XMS RPT_ITS | CCD ---
Author Name Unknown Address [address] [place] [address] Organization [facility] Care Team Providers Care Hand Etcher Name Role Phone BRITTON ROSENBERG Unavailable Unavailable LIZANDRO LEONARDO Admitting Unavailable LIZANDRO LEONARDO Attending Unavailable LIZANDRO LEONARDO Primary Care Unavailable CEBUL, RUSTY III Consulting Unavailable LUNAL, RUSTY III Referring Unavailable PROVIDER, UNKNOWN Consulting Unavailable [facility] Admitting Unavaila connie [facility]IPS [facility] Attending [facility] Primary Care Unavaila ble CEBUL, RUSTY III Consulting Unavailable PROVIDER, UNKNOWN Consulting Unavailable Unavailable Primary Care Provider Unavailabl e Unavailable Primary Care Provider Unavailabl e Unavailable Primary Care Provider Unavailabl e Shanna Camejo Primary Care Provider [phone] Shanna Camejo (Historical) Primary Care Provid er Unavailable JANIE HAN Attending Unavailable ANA LE Referring Unavailable Medications Current Medications Medication Drug Class(es) Dates Sig (Normalized) Sig (Original) amoxicillin 875 mg / clavulanate 125 mg oral tablet (2 sources) Penicillin-class Antibacterial Start: 06-28-2023 End: 07-05-2023 take 1 tablet by mouth twice daily amoxicillin-clavulan ic acid (AUGMENTIN) 875-125 mg per tablet Indications: Rhinosinusitis Take 1 tablet by mouth two times a day for 7 days. 14 tablet 0 06/28/2023 07/05/2023 Active Completed/Discontinued Medications Medication Drug Class(es) Dates Sig (Normalized) Sig (Original) [id number] 200 actuat albuterol 0.09 mg/actuat metered dose inhaler (8 sources) beta2-Adrenergic Agonist Start: 12-01-2022 take 2 puff(s) by inhalation every six hours as needed for wheezing albuterol HFA (PROVENTIL HFA, VENTOLIN HFA) 90 mcg/actuation inhaler Indications: Viral bronchitis Inhale 2 Puffs as instructed every 6 hours as needed for wheezing/shortnes s of breath. 1 Each 0 12/01/2022 Active Problems Active Problems Problem Classification Problem Date Documented Da te Episodic/Chronic Abdominal pain (1 source) Finding of sensation of abdomen; Translations: [Unspecified abdominal pain] Episodic Acute bronchitis (3 sources) Viral bronchitis; Translations: [Acute bronchitis due to other specified organisms] Episodic Diseases of white blood cells (12 sources) Band neutrophil count above reference range; Translations: [Bandemia] Onset: 7 02-11-2017 Chronic E Codes: Overexertion (1 source) Slipping, tripping and stumbling without falling due to stepping into hole or opening, initial encounter; Translations: [Other accident caused by striking against or being struck accidentally by objects or persons] Episodic Esophageal disorders (13 sources) Gastroesophageal reflux disease without esophagitis; Translations: [Gastro-esophageal reflux disease without esophagitis] Onset: 1 12-31-2020 Chronic Inflammatory diseases of female pelvic organs (1 source) Acute vaginitis; Translations: [Acute vaginitis] 08-25-2023 Episodic Menstrual disorders (12 sources) Secondary amenorrhea; Translations: [Secondary amenorrhea] Onset: 7 02-08-2017 Chronic Mycoses (1 source) Candidiasis of mouth; Translations: [Candidal stomatitis] Episodic Nausea and vomiting (1 source) Nausea; Translations: [Nausea] Episodic Other endocrine disorders (12 sources) Polycystic ovary syndrome; Translations: [Polycystic ovarian syndrome] Onset: 7 05-11-2017 Chronic Other gastrointestinal disorders (1 source) Diarrhea; Translations: [Diarrhea, unspecified] Episodic Other lower respiratory disease (1 source) Cough; Translations: [Acute cough] 06-28-2023 Episodic Other non-traumatic joint disorders (1 source) Pain in right knee; Translations: [Pain in joint, lower leg] Episodic Other nutritional; endocrine; and metabolic disorders (12 sources) Morbid obesity; Translations: [Morbid (severe) obesity due to excess calories] Onset: 7 02-08-2017 Chronic Other nutritional; endocrine; and metabolic disorders (12 sources) Insulin resistance; Translations: [Metabolic syndrome] Onset: 7 06-13-2017 Chronic Other nutritional; endocrine; and metabolic disorders (12 sources) Body mass index 40+ - severely obese; Translations: [Body mass index (BMI) 45.0-49.9, adult] Onset: 7 06-13-2017 Chronic Other screening for suspected conditions (not mental disorders or infectious disease) (2 sources) Patient encounter status; Translations: [Encounter for screening for diabetes mellitus] Episodic Other upper respiratory infections (2 sources) Chronic sinusitis, unspecified; Translations: [Unspecified sinusitis (chronic)] 06-28-2023 Chronic Other upper respiratory infections (1 source) Upper respiratory infection; Translations: [Acute upper respiratory infection, unspecified] Episodic Otitis media and related conditions (1 source) Acute suppurative otitis media without spontaneous rupture of ear drum; Translations: [Acute suppurative otitis media without spontaneous rupture of ear drum, left ear] Episodic Residual codes; unclassified (1 source) FH: Crohn's disease; Translations: [Family history of other diseases of the digestive system] Episodic Unclassified (1 source) Unknown / UNK(Unknown) Onset: 8 Unclassified (1 source) Acute cough; Translations: [Acute cough] Onset: 3 Viral infection (1 source) Viral disease; Translations: [Viral infection, unspecified] Episodic Past or Other Problems Problem Classification Problem Date Documented Da te Episodic/Chronic Other hematologic conditions (12 sources) Erythrocytosis; Translations: [Secondary polycythemia] Onset: 04-05-2017 04-05-2017 Episodic Unclassified (1 source) SIDE PAIN Onset: 10-29-2017 Results Test Name Value Interpretation Reference Range Facil ity Vital Signs Date Time Vital Sign Value Performing Clinician Ethel fox 08-25-2023 15:59-0500 Body weight 141.07 kg Janie Han APRN.CNP Work Phone: [facility] 08-25-2023 15:59-0500 Diastolic blood pressure 84 mm[Hg] Janie Han APRN.CNP Work Phone: [facility] 08-25-2023 15:59-0500 Systolic blood pressure 130 mm[Hg] Janie Maysida ENVIRONMENTAL LEAD.GENERAL MANAGER LAND DEPARTMENT Work Phone: [facility] 07-16-2023 10:02-0500 Body temperature 97.81 [degF] Ros Langley ENVIRONMENTAL LEAD.GENERAL MANAGER LAND DEPARTMENT Work Phone: [facility] 07-16-2023 10:02-0500 Body weight 141.07 kg Ros Langley ENVIRONMENTAL LEAD.GENERAL MANAGER LAND DEPARTMENT Work Phone: [facility] 07-16-2023 10:02-0500 Diastolic blood pressure 103 mm[Hg] Ros Langley ENVIRONMENTAL LEAD.GENERAL MANAGER [employer]AND DEPARTMENT Work Phone: [facility] 07-16-2023 10:02-0500 Heart rate 101 /min Ros Langley ENVIRONMENTAL LEAD.GENERAL MANAGER [employer]AND DEPARTMENT Work Phone: [facility] 07-16-2023 10:02-0500 Respiratory rate 20 /min Ros Langley ENVIRONMENTAL LEAD.GENERAL MANAGER [employer]AND DEPARTMENT Work Phone: [facility] 07-16-2023 10:02-0500 SaO2% (BldA) [Mass fraction] 98 % Ros Langley ENVIRONMENTAL LEAD.GENERAL MANAGER LAND DEPARTMENT Work Phone: [facility] 07-16-2023 10:02-0500 Systolic blood pressure 142 mm[Hg] Ros Langley ENVIRONMENTAL LEAD.GENERAL MANAGER [employer]AND DEPARTMENT Work Phone: [facility] 06-28-2023 17:24-0400 Body temperature 98.29 [degF] Ana Le ENVIRONMENTAL LEAD.GENERAL MANAGER LAND DEPARTMENT Work Phone: [facility] 06-28-2023 17:24-0400 Body weight 137.26 kg Ana Le ENVIRONMENTAL LEAD.GENERAL MANAGER [employer]AND DEPARTMENT Work Phone: [facility] 06-28-2023 17:24-0400 Diastolic blood pressure 82 mm[Hg] Ana Le ENVIRONMENTAL LEAD.GENERAL MANAGER [employer]AND DEPARTMENT Work Phone: [facility] 06-28-2023 17:24-0400 Heart rate 110 /min Ana Le ENVIRONMENTAL LEAD.GENERAL MANAGER [employer] DEPARTMENT Work Phone: [facility] 06-28-2023 17:24-0400 Respiratory rate 21 /min Ana Titi ENVIRONMENTAL LEAD.GENERAL MANAGER LAND DEPARTMENT Work Phone: [facility] 06-28-2023 17:24-0400 SaO2% (BldA) [Mass fraction] 96 % Ana Le ENVIRONMENTAL LEAD.GENERAL MANAGER LAND DEPARTMENT Work Phone: [facility] 06-28-2023 17:24-0400 Systolic blood pressure 120 mm[Hg] Ana Le ENVIRONMENTAL LEAD.GENERAL MANAGER LAND DEPARTMENT Work Phone: [facility] 06-18-2023 12:37-0400 Body temperature 98.01 [degF] Ernie Pendlebury ENVIRONMENTAL LEAD.GENERAL MANAGER LAND DEPARTMENT Work Phone: [facility] 06-18-2023 12:37-0400 Body weight 137.44 kg Ernie Jeremiasshady ENVIRONMENTAL LEAD.GENERAL MANAGER LAND DEPARTMENT Work Phone: [facility] 06-18-2023 12:37-0400 Diastolic blood pressure 84 mm[Hg] Ernie Pendlebury ENVIRONMENTAL LEAD.GENERAL MANAGER LAND DEPARTMENT Work Phone: [facility] 06-18-2023 12:37-0400 Heart rate 83 /min Ernie Pendlebury ENVIRONMENTAL LEAD.GENERAL MANAGER [employer] DEPARTMENT Work Phone: [facility] 06-18-2023 12:37-0400 Respiratory rate 16 /min Ernie Pendlebury ENVIRONMENTAL LEAD.GENERAL MANAGER [employer] DEPARTMENT Work Phone: [facility] 06-18-2023 12:37-0400 SaO2% (BldA) [Mass fraction] 96 % Ernie Pendlebury ENVIRONMENTAL LEAD.GENERAL MANAGER [employer] DEPARTMENT Work Phone: [facility] 06-18-2023 12:37-0400 Systolic blood pressure 126 mm[Hg] Ernie Pendlebury ENVIRONMENTAL LEAD.GENERAL MANAGER [employer] DEPARTMENT Work Phone: [facility] 12-06-2022 09:14-0400 Body temperature 97.5 [degF] Tori Bernard ENVIRONMENTAL LEAD.GENERAL MANAGER LAND DEPARTMENT Work Phone: [facility] 12-06-2022 09:14-0400 Body weight 137.89 kg Tori Marco Antonio ENVIRONMENTAL LEAD.GENERAL MANAGER L[employer] DEPARTMENT Work Phone: [facility] 12-06-2022 09:14-0400 Diastolic blood pressure 76 mm[Hg] Tori Marco Antonio ENVIRONMENTAL LEAD.GENERAL MANAGER LAND DEPARTMENT Work Phone: [facility] 12-06-2022 09:14-0400 Heart rate 104 /min Tori Marco Antonio ENVIRONMENTAL LEAD.GENERAL MANAGER [employer] DEPARTMENT Work Phone: [facility] 12-06-2022 09:14-0400 Respiratory rate 16 /min Tori Marco Antonio ENVIRONMENTAL LEAD.GENERAL MANAGER [employer]AND DEPARTMENT Work Phone: [facility] 12-06-2022 09:14-0400 SaO2% (BldA) [Mass fraction] 97 % Tori Marco Antonio ENVIRONMENTAL LEAD.GENERAL MANAGER LAND DEPARTMENT Work Phone: [facility] 12-06-2022 09:14-0400 Systolic blood pressure 112 mm[Hg] Tori Marco Antonio ENVIRONMENTAL LEAD.GENERAL MANAGER LAND DEPARTMENT Work Phone: [facility] 12-01-2022 11:46-0400 Body temperature 99.5 [degF] Darling Praisler-Wood ENVIRONMENTAL LEAD.GENERAL MANAGER LAND DEPARTMENT Work Phone: [facility] 12-01-2022 11:46-0400 Body weight 134.99 kg Darling Praisler-Wood ENVIRONMENTAL LEAD.GENERAL MANAGER LAND DEPARTMENT Work Phone: [facility] 12-01-2022 11:46-0400 Diastolic blood pressure 86 mm[Hg] Darling Praisler-Wood ENVIRONMENTAL LEAD.GENERAL MANAGER LAND DEPARTMENT Work Phone: [facility] 12-01-2022 11:46-0400 Heart rate 100 /min Darling Praisler-Wood ENVIRONMENTAL LEAD.GENERAL MANAGER L[employer] DEPARTMENT Work Phone: [facility] 12-01-2022 11:46-0400 Respiratory rate 20 /min Darling Praisler-Wood ENVIRONMENTAL LEAD.GENERAL MANAGER LAND DEPARTMENT Work Phone: [facility] 12-01-2022 11:46-0400 SaO2% (BldA) [Mass fraction] 96 % Darling Praisler-Wood ENVIRONMENTAL LEAD.GENERAL MANAGER LAND DEPARTMENT Work Phone: [facility] 12-01-2022 11:46-0400 Systolic blood pressure 132 mm[Hg] Darling Vasques ENVIRONMENTAL LEAD.GENERAL MANAGER L[employer] DEPARTMENT Work Phone: [facility] 11-01-2022 18:17-0500 Body temperature 99.7 [degF] [facility] ENVIRONMENTAL LEAD.GENERAL MANAGER LAND DEPARTMENT Work Phone: [facility] 11-01-2022 18:17-0500 Body weight 138.26 kg [facility] ENVIRONMENTAL LEAD.GENERAL MANAGER LAND DEPARTMENT Work Phone: [facility] 11-01-2022 18:17-0500 Diastolic blood pressure 82 mm[Hg] [facility] ENVIRONMENTAL LEAD.GENERAL MANAGER LAND DEPARTMENT Work Phone: [facility] 11-01-2022 18:17-0500 Heart rate 116 /min [facility] ENVIRONMENTAL LEAD.GENERAL MANAGER LAND DEPARTMENT Work Phone: [facility] 11-01-2022 18:17-0500 Respiratory rate 18 /min [facility] ENVIRONMENTAL LEAD.GENERAL MANAGER LAND DEPARTMENT Work Phone: [facility] 11-01-2022 18:17-0500 SaO2% (BldA) [Mass fraction] 98 % [facility] ENVIRONMENTAL LEAD.GENERAL MANAGER LAND DEPARTMENT Work Phone: [facility] 11-01-2022 18:17-0500 Systolic blood pressure 118 mm[Hg] [facility] ENVIRONMENTAL LEAD.GENERAL MANAGER LAND DEPARTMENT Work Phone: [facility] 08-12-2022 15:43-0500 Body height 165.1 cm Keena George PA-C Work Phone: [facility] 08-12-2022 15:43-0500 Body weight 139.25 kg Keena George PA-C Work Phone: [facility] 08-12-2022 15:43-0500 Diastolic blood pressure 78 mm[Hg] Keena George PA-C Work Phone: [facility] 08-12-2022 15:43-0500 Heart rate 90 /min Keena George PA-C Work Phone: [facility] 08-12-2022 15:43-0500 Systolic blood pressure 114 mm[Hg] Keena Vazquez PA-C Work Phone: [facility] 06-03-2022 15:40-0400 Body temperature 98.29 [degF] Darling Praisler-Wood ENVIRONMENTAL LEAD.GENERAL MANAGER LAND DEPARTMENT Work Phone: [facility] 06-03-2022 15:40-0400 Body weight 142.25 kg Darling Praisler-Wood ENVIRONMENTAL LEAD.GENERAL MANAGER LAND DEPARTMENT Work Phone: [facility] 06-03-2022 15:40-0400 Diastolic blood pressure 80 mm[Hg] Darling Praisler-Wood ENVIRONMENTAL LEAD.GENERAL MANAGER LAND DEPARTMENT Work Phone: [facility] 06-03-2022 15:40-0400 Heart rate 90 /min Darling Praisler-Wood ENVIRONMENTAL LEAD.GENERAL MANAGER LAND DEPARTMENT Work Phone: [facility] 06-03-2022 15:40-0400 Respiratory rate 18 /min Darling Praisler-Wood ENVIRONMENTAL LEAD.GENERAL MANAGER LAND DEPARTMENT Work Phone: [facility] 06-03-2022 15:40-0400 SaO2% (BldA) [Mass fraction] 96 % Darling Praisler-Wood ENVIRONMENTAL LEAD.GENERAL MANAGER LAND DEPARTMENT Work Phone: [facility] 06-03-2022 15:40-0400 Systolic blood pressure 122 mm[Hg] Darling Praisler-Wood ENVIRONMENTAL LEAD.GENERAL MANAGER LAND DEPARTMENT Work Phone: [facility] 03-15-2022 10:19-0400 Body temperature 97.2 [degF] Ros Langley ENVIRONMENTAL LEAD.GENERAL MANAGER LAND DEPARTMENT Work Phone: [facility] 03-15-2022 10:19-0400 Body weight 142.61 kg Ros Langley ENVIRONMENTAL LEAD.GENERAL MANAGER LAND DEPARTMENT Work Phone: [facility] 03-15-2022 10:19-0400 Diastolic blood pressure 66 mm[Hg] Ros Langley ENVIRONMENTAL LEAD.GENERAL MANAGER LAND DEPARTMENT Work Phone: [facility] 03-15-2022 10:19-0400 Heart rate 77 /min Ros Langley ENVIRONMENTAL LEAD.GENERAL MANAGER LAND DEPARTMENT Work Phone: [facility] 03-15-2022 10:19-0400 Respiratory rate 18 /min Ros Langley ENVIRONMENTAL LEAD.GENERAL MANAGER LAND DEPARTMENT Work Phone: [facility] 03-15-2022 10:19-0400 SaO2% (BldA) [Mass fraction] 98 % Ros Langley ENVIRONMENTAL LEAD.GENERAL MANAGER LAND DEPARTMENT Work Phone: [facility] 03-15-2022 10:19-0400 Systolic blood pressure 122 mm[Hg] Ros Langley ENVIRONMENTAL LEAD.GENERAL MANAGER LAND DEPARTMENT Work Phone: [facility] Encounters Encounter Date Encounter Type Care Provider Facility Start: 08-25-2023 End: 08-25-2023 ambulatory JANIE HAN Facility:[facility] Start: 08-25-2023 End: 08-25-2023 Patient encounter procedure Janie Han APRN.GENERAL MANAGER LAND DEPARTMENT Work Phone: OB/Gynecology Procedures Date Procedure Procedure Detail Performing Clinician Start: 08-25-2023 End: 08-25-2023 Iadna chlamydia trachomatis amplified probe tq Janie Han APRN.GENERAL MANAGER LAND DEPARTMENT Work Phone: Start: 08-25-2023 BACTERIAL VAGINOSIS NAAT Janie Han APRN.GENERAL MANAGER LAND DEPARTMENT Work Phone: Start: 08-05-2018 Urinalysis LIZANDRO HERNANDEZS Plan of Treatment Date Care Activity Detail Author Start: 05-12-2023 Influenza vaccination Influenza Vacc ine (#1) [facility] Start: 11-01-2022 End: 11-15-2022 Influenza virus A and B RNA and SARS-CoV-2 (COVID-19) N gene panel - Respiratory specimen by CONNER with probe detection [facility] Work Phone: Immunizations Immunization Date Immunization Notes Care Provider Virginia kelly 07-05-2017 influenza virus vaccine, unspecified formulation Ernie Baptiste ENVIRONMENTAL LEAD.GENERAL MANAGER LAND DEPARTMENT Work Phone: [facility] 03-26-2015 human papilloma viru s vaccine, quadrivalent Ros Langley ENVIRONMENTAL LEAD.GENERAL MANAGER LAND DEPARTMENT Work Phone: [facility] 11-24-2014 human papilloma viru s vaccine, quadrivalent Ros Langley ENVIRONMENTAL LEAD.[facility] Work Phone: [facility] 09-24-2014 human papilloma viru s vaccine, quadrivalent Ros Langley ENVIRONMENTAL LEAD.[facility] Work Phone: [facility] 04-25-2008 Meningococcal, MCV4, unspecified conjugate formulation(groups A, C, Y and W-135) Ros Langley ENVIRONMENTAL LEAD.[facility] Work Phone: [facility] Work Phone: 04-25-2008 tetanus toxoid, reduced diphtheria toxoid, and acellular pertussis vaccine, adsorbed Ros Langley ENVIRONMENTAL LEAD.[facility] Work Phone: [facility] Work Phone: 03-02-2001 diphtheria, tetanus toxoids and acellular pertussis vaccine Ros Langley ENVIRONMENTAL LEAD.[facility] Work Phone: [facility] Work Phone: 03-02-2001 measles, mumps and rubella virus vaccine Ros Langley ENVIRONMENTAL LEAD.[facility] Work Phone: [facility] Work Phone: 03-02-2001 poliovirus vaccine, inactivated Ros Langley ENVIRONMENTAL LEAD.[facility] Work Phone: [facility] Work Phone: 04-09-1997 DTaP-Haemophilus influenzae type b conjugate vaccine Ros Langley ENVIRONMENTAL LEAD.GENERAL MANAGER LAND DEPARTMENT Work Phone: [facility] Work Phone: 04-09-1997 trivalent poliovirus vaccine, live, oral Ros Langley ENVIRONMENTAL LEAD.[facility] Work Phone: [facility] Work Phone: 10-04-1996 measles, mumps and rubella virus vaccine Ros Langley ENVIRONMENTAL LEAD.[facility] Work Phone: [facility] Work Phone: 04-05-1996 DTaP-Haemophilus influenzae type b conjugate vaccine Ros Langley ENVIRONMENTAL LEAD.[facility] Work Phone: [facility] Work Phone: 04-05-1996 hepatitis B vaccine, adult dosage Ros Langley ENVIRONMENTAL LEAD.[facility] Work Phone: [facility] Work Phone: 02-01-1996 DTaP-Haemophilus influenzae type b conjugate vaccine Ros Langley ENVIRONMENTAL LEAD.[facility] Work Phone: [facility] Work Phone: 01-31-1996 trivalent poliovirus vaccine, live, oral Ros Langley ENVIRONMENTAL LEAD.[facility] Work Phone: [facility] Work Phone: 1995 DTaP-Haemophilus influenzae type b conjugate vaccine Ros Langley ENVIRONMENTAL LEAD.[facility] Work Phone: [facility] Work Phone: 1995 trivalent poliovirus vaccine, live, oral Ros Langley ENVIRONMENTAL LEAD.[facility] Work Phone: [facility] Work Phone: 1995 hepatitis B vaccine, adult dosage Ros Langley ENVIRONMENTAL LEAD.[facility] Work Phone: [facility] Work Phone: 1995 hepatitis B vaccine, adult dosage Ros Langley ENVIRONMENTAL LEAD.[facility] Work Phone: [facility] Work Phone: Payers Date Payer Category Payer Unknown [employer] [id number] 2022-Present [phone] [address] [place] [address] PPO [id number] 2022 Unknown [id number] 1995 Unknown [id number] Unknown [id number] Unknown [id number] Social History Date Type Detail Facility Start: 10-04-2011 End: 07-19-2022 Tobacco smoking status NHIS Never smoked tobacco [facility] Start: 03-15-2022 End: 08-25-2023 Alcohol intake Lifetime non-drinker (finding) [facility] Start: 06-01-2020 History SDOH Alcohol Frequency 1 [facility] Start: 06-01-2020 History SDOH Social Connections Phone 5 [facility] Start: 06-01-2020 History SDOH Social Connections Get Together 2 [facility] Start: 06-01-2020 History SDOH Social Connections Living 8 [facility] Start: 06-01-2020 History SDOH Physica l Activity DPW 7 [facility] Start: 06-01-2020 History SDOH Physica l Activity MPS 6 [facility] Start: 06-28-2011 End: 07-19-2022 Tobacco Comment dad smokes in home [facility] Start: 1995 Sex Assigned At Not on file [facility] Start: 03-05-2022 End: 08-12-2022 Exposure to SARS-CoV-2 (event) Not sure [facility] Work Phone: Start: 10-04-2011 End: 07-19-2022 Tobacco use and exposure Smokeless tobacco non-user [facility] Work Phone: Start: 06-01-2020 End: 08-25-2023 History of Social function [facility] Start: 06-01-2020 End: 08-25-2023 Social connection and isolation panel [facility] Do you belong to any clubs or organizations such as jainism groups, unions, fraternal or athletic groups, or school groups? No [facility] Are you now , , , , never or living with a partner? Living with partner [facility] How often to you hav e a drink containing alcohol? Never [facility] Average Number of Drinks Not on file [facility] Do you feel stress - tense, restless, nervous, or anxious, or unable to sleep at night because your mind is troubled all the time - these days [OSQ] Not at all [facility] Clinical Notes 07-21-2014 to 08-25-2023 Addendum Note - Gregorio Melo Ma - 08/25/2023 4:21 PM ESTAddendum Note - Janie Han APRN.KARO - 08/25/2023 4:21 PM Janie Chou APRN.CNP - 08/25/2023 3:58 PM ESTPatient Instructions Note Date & Type Note Facility 08-25-2023 Note HNO ID: [id number] Author: Janie Han APRN.GENERAL MANAGER LAND DEPARTMENT Service: ? Author Type: Nurse Practitioner Type: Progress Notes Filed: 08/25/2023 4:17 PM Note Text: Kali Gonzalez is a 27 year old female who presents for problem visit of vaginal discharge about a month. HPI: Patient presents with concerns of vaginal discharge. Describes it as a milky colored and pasty. Tried Monistat 3 with no relief. No itching or burning. Denies pain. Slight odor. Denies concerns for STDs. 3 different antibiotics since the end of May for URI/sinus infection. OB History T0 L0 SAB0 IAB0 Ectopic0 Multiple0 Live Births0 [employer]house [employer] Coord[employer] History LMP: 08/07/2023 (Within Days), Having periods Age at Menarche: Age at First : Age at Menopause: Warehouse Logistics Coordinator History Comments: Sexual Activity: Yes; Male Contraception: Condom, Pill PAST MEDICAL HISTORY Diagnosis Date Chlamydia 08/14/2019 Chlamydia infection 06/16/2017 PCOS (polycystic ovarian syndrome) 05/11/2017 Pneumonia, organism unspecified(486) Trichomonas infection 05/04/2018 PAST SURGICAL HISTORY Procedure Laterality Date REM LESION FACE,EAR,EYE 0.6-1CM 08/27/2014 Exc. right ear helix keloid TMJ FAMILY HISTORY Problem Relation Age of Onset Hypertension Maternal Grandmother Arthritis Maternal Grandmother Rheumotoid Cancer Maternal Grandfather Throat Diabetes Paternal Grandmother Cancer Paternal Grandfather Skin Hypertension Paternal Grandfather Colon Cancer No Family History Social History Tobacco Use Smoking status: Never Smokeless tobacco: Never Tobacco comments: dad smokes in home Vaping Use Vaping Use: Former Substance Use Topics Alcohol use: Never Drug use: No Current Outpatient Medications Medication Sig predniSONE (DELTASONE) 10 mg tablet Take 4 tabs daily for 3 days, then 2 tabs daily for 3 days, then 1 tab daily for 3 days with food. (Patient not taking: Reported on 08/25/2023) fluticasone (FLONASE) 50 mcg/actuation nasal spray Use 2 Sprays in each nostril once daily. Rinse mouth after use. benzonatate (TESSALON PERLES) 100 mg capsule Take 1 capsule by mouth three times a day as needed for cough. (Patient not taking: Reported on 07/16/2023) albuterol HFA (PROVENTIL HFA, VENTOLIN HFA) 90 mcg/actuation inhaler Inhale 2 Puffs as instructed every 6 hours as needed for wheezing/shortness of breath. ondansetron orally disintegrating (ZOFRAN ODT) 4 mg disintegrating tablet Take 1 tablet by mouth every 8 hours as needed for nausea/vomiting. (Patient not taking: Reported on 06/18/2023) dicyclomine (BENTYL) 20 mg tablet Take 1 tablet by mouth three times daily as needed. (Patient not taking: Reported on 11/01/2022) Omeprazole Magnesium (PRILOSEC OTC) 20 mg tablet Take 1 tablet by mouth daily before breakfast. 1/2 hr before meal. No current facility-administered medications for this visit. Allergies As of Date: 08/25/2023 (No Known Allergies) Fully Assessed 08/25/2023 REVIEW OF SYSTEMS Abdomen: No bloating, early satiety, indigestion, or increased flatulence. No abdominal pain, nausea, vomiting, diarrhea, or constipation. Bladder: No dysuria, gross hematuria, urinary frequency, urinary urgency, or incontinence. Breast: No breast lumps, nipple d/c, overlying skin changes, redness or skin retraction. Expanded ROS: N/A Allergies and current medication updated:Yes EXAM: BP 130/84 Wt 311 lb (141.1kg) LMP 08/07/2023 GENERAL: pleasant, female in no apparent distress HEENT: Normocephalic, atraumatic, mucus membranes moist, and no lesions CHEST: Normal inspiratory effort ABDOMEN: soft, non-tender, and no masses PELVIC: external genitalia normal, normal Bartholin's glands, urethra, [place]'s glands, no vulvar lesions, no cervical lesions, good vaginal support, physiologic discharge present, normal appearing perineal body and perianal region BIMANUAL: uterus normal size, shape and consistency, no adnexal masses, and non-tender NEURO: alert and oriented x3,exam grossly non-focal EXTREMITIES: normal ASSESSMENT AND PLAN: ASSESSMENT/PLAN: 1. Acute vaginitis - ICD9: 616.10, ICD10: N76.0 - AI/TRICHOMONAS NAAT - BACTERIAL VAGINOSIS NAAT - G/C - Recommend women's health probiotic - Will notify with results Janie Han APRN.CNP Medical Decision Making: Problems: Moderate: New problem with uncertain prognosis Data: Unique test(s) ordered: 3+ Risk: Low: Low risk from testing/treatment Medical Decision Making Level: 4 - Moderate [facility] 08-25-2023 Miscellaneous Notes Addended by: GREGORIO MELO MA on: 08/25/2023 04:21 PM Modules accepted: Orders Addended by: JANIE HAN on: 08/25/2023 04:21 PM Modules accepted: Orders documented in this encounter [facility] 08-25-2023 History of Presen t illness Narrative Kali Gonzalez is a 27 year old female who presents for problem visit of vaginal discharge about a month. HPI: Patient presents with concerns of vaginal discharge. Describes it as a milky colored and pasty. Tried Monistat 3 with no relief. No itching or burning. Denies pain. Slight odor. Denies concerns for STDs. 3 different antibiotics since the end of May for URI/sinus infection. OB History T0 L0 SAB0 IAB0 Ectopic0 Multiple0 Live Births0 Warehouse Logistics Coordinator History LMP: 08/07/2023 (Within Days), Having periods Age at Menarche: Age at First : Age at Menopause: Warehouse Logistics Coordinator History Comments: Sexual Activity: Yes; Male Contraception: Condom, Pill PAST MEDICAL HISTORY Diagnosis Date Chlamydia 08/14/2019 Chlamydia infection 06/16/2017 PCOS (polycystic ovarian syndrome) 05/11/2017 Pneumonia, organism unspecified(486) Trichomonas infection 05/04/2018 PAST SURGICAL HISTORY Procedure Laterality Date REM LESION FACE,EAR,EYE 0.6-1CM 08/27/2014 Exc. right ear helix keloid TMJ FAMILY HISTORY Problem Relation Age of Onset Hypertension Maternal Grandmother Arthritis Maternal Grandmother Rheumotoid Cancer Maternal Grandfather Throat Diabetes Paternal Grandmother Cancer Paternal Grandfather Skin Hypertension Paternal Grandfather Colon Cancer No Family History Social History Tobacco Use Smoking status: Never Smokeless tobacco: Never Tobacco comments: dad smokes in home Vaping Use Vaping Use: Former Substance Use Topics Alcohol use: Never Drug use: No Current Outpatient Medications Medication Sig predniSONE (DELTASONE) 10 mg tablet Take 4 tabs daily for 3 days, then 2 tabs daily for 3 days, then 1 tab daily for 3 days with food. (Patient not taking: Reported on 08/25/2023) fluticasone (FLONASE) 50 mcg/actuation nasal spray Use 2 Sprays in each nostril once daily. Rinse mouth after use. benzonatate (TESSALON PERLES) 100 mg capsule Take 1 capsule by mouth three times a day as needed for cough. (Patient not taking: Reported on 07/16/2023) albuterol HFA (PROVENTIL HFA, VENTOLIN HFA) 90 mcg/actuation inhaler Inhale 2 Puffs as instructed every 6 hours as needed for wheezing/shortness of breath. ondansetron orally disintegrating (ZOFRAN ODT) 4 mg disintegrating tablet Take 1 tablet by mouth every 8 hours as needed for nausea/vomiting. (Patient not taking: Reported on 06/18/2023) dicyclomine (BENTYL) 20 mg tablet Take 1 tablet by mouth three times daily as needed. (Patient not taking: Reported on 11/01/2022) Omeprazole Magnesium (PRILOSEC OTC) 20 mg tablet Take 1 tablet by mouth daily before breakfast. 1/2 hr before meal. No current facility-administered medications for this visit. Allergies As of Date: 08/25/2023 (No Known Allergies) Fully Assessed 08/25/2023 REVIEW OF SYSTEMS Abdomen: No bloating, early satiety, indigestion, or increased flatulence. No abdominal pain, nausea, vomiting, diarrhea, or constipation. Bladder: No dysuria, gross hematuria, urinary frequency, urinary urgency, or incontinence. Breast: No breast lumps, nipple d/c, overlying skin changes, redness or skin retraction. Expanded ROS: N/A Allergies and current medication updated:Yes EXAM: BP 130/84 Wt 311 lb (141.1kg) LMP 08/07/2023 GENERAL: pleasant, female in no apparent distress HEENT: Normocephalic, atraumatic, mucus membranes moist, and no lesions CHEST: Normal inspiratory effort ABDOMEN: soft, non-tender, and no masses PELVIC: external genitalia normal, normal [place]'s glands, urethra, [place]'s glands, no vulvar lesions, no cervical lesions, good vaginal support, physiologic discharge present, normal appearing perineal body and perianal region BIMANUAL: uterus normal size, shape and consistency, no adnexal masses, and non-tender NEURO: alert and oriented x3,exam grossly non-focal EXTREMITIES: normal ASSESSMENT AND PLAN: ASSESSMENT/PLAN: 1. Acute vaginitis - ICD9: 616.10, ICD10: N76.0 - AI/TRICHOMONAS NAAT - BACTERIAL VAGINOSIS NAAT - G/C - Recommend women's health probiotic - Will notify with results Janie Han APRN.CNP Medical Decision Making: Problems: Moderate: New problem with uncertain prognosis Data: Unique test(s) ordered: 3+ Risk: Low: Low risk from testing/treatment Medical Decision Making Level: 4 - Moderate documented in this encounter [facility] 07-16-2023 Note HNO ID: [id number] Author: Ros Langley APRN.KARO Service: ? Author Type: Nurse Practitioner Type: Progress Notes Filed: 07/16/2023 10:26 AM Note Text: This note was created using NoteWriter. Subjective Kali Gonzalez is a 27 year old female. 27 year old female with PMH GERD and PCOS presents for illness. Acute onset several weeks ago +sinus congestion +nasal pressure +sputum production +cough +post nasal drainage +ill contacts Has used homeopathic or OTC Was on Augmentin one month ago for similar. The history is provided by the patient. No unmanned aircraft systems roboticist was used. Cough This is a new problem. The current episode started more than 1 week ago. The problem occurs constantly. The problem has not changed since onset.The cough is Productive of sputum. There has been no fever. Associated symptoms include ear congestion, ear pain, headaches, rhinorrhea and wheezing. Pertinent negatives include no chest pain, no chills, no sweats, no weight loss, no sore throat, no myalgias, no shortness of breath and no eye redness. She has tried decongestants for the symptoms. The treatment provided no relief. She is not a smoker. Her past medical history does not include bronchitis, pneumonia, bronchiectasis, COPD, emphysema or asthma. PAST MEDICAL HISTORY Diagnosis Date Chlamydia 08/14/2019 Chlamydia infection 06/16/2017 PCOS (polycystic ovarian syndrome) 05/11/2017 Pneumonia, organism unspecified(486) Trichomonas infection 05/04/2018 PAST SURGICAL HISTORY Procedure Laterality Date REM LESION FACE,EAR,EYE 0.6-1CM 08/27/2014 Exc. right ear helix keloid TMJ ALLERGIES Patient has no known allergies. MEDICATIONS albuterol HFA (PROVENTIL HFA, VENTOLIN HFA) 90 mcg/actuation inhaler Inhale 2 Puffs as instructed every 6 hours as needed for wheezing/shortness of breath. Omeprazole Magnesium (PRILOSEC OTC) 20 mg tablet Take 1 tablet by mouth daily before breakfast. 1/2 hr before meal. doxycycline (VIBRA-TABS) 100 mg tablet Take 1 tablet by mouth two times a day for 7 days. predniSONE (DELTASONE) 10 mg tablet Take 4 tabs daily for 3 days, then 2 tabs daily for 3 days, then 1 tab daily for 3 days with food. fluticasone (FLONASE) 50 mcg/actuation nasal spray Use 2 Sprays in each nostril once daily. Rinse mouth after use. benzonatate (TESSALON PERLES) 100 mg capsule Take 1 capsule by mouth three times a day as needed for cough. (Patient not taking: Reported on 07/16/2023) ondansetron orally disintegrating (ZOFRAN ODT) 4 mg disintegrating tablet Take 1 tablet by mouth every 8 hours as needed for nausea/vomiting. (Patient not taking: Reported on 06/18/2023) dicyclomine (BENTYL) 20 mg tablet Take 1 tablet by mouth three times daily as needed. (Patient not taking: Reported on 11/01/2022) FAMILY HISTORY Problem Relation Age of Onset Hypertension Maternal Grandmother Arthritis Maternal Grandmother Rheumotoid Cancer Maternal Grandfather Throat Diabetes Paternal Grandmother Cancer Paternal Grandfather Skin Hypertension Paternal Grandfather Colon Cancer No Family History Social History Tobacco Use Smoking status: Never Smokeless tobacco: Never Tobacco comments: dad smokes in home Vaping Use Vaping Use: Former Substance Use Topics Alcohol use: Never Drug use: No Review of Systems Constitutional: Positive for fatigue. Negative for chills, fever and weight loss. HENT: Positive for congestion, ear pain, rhinorrhea, sinus pressure, sinus pain and sneezing. Negative for sore throat. Eyes: Negative for pain, discharge, redness and itching. Respiratory: Positive for cough and wheezing. Negative for apnea, chest tightness and shortness of breath. Cardiovascular: Negative for chest pain. Gastrointestinal: Negative for abdominal pain, diarrhea, nausea and vomiting. Musculoskeletal: Negative for arthralgias, back pain, gait problem and myalgias. Skin: Negative for color change, pallor, rash and wound. Neurological: Positive for headaches. Hematological: Negative for adenopathy. Does not bruise/bleed easily. Psychiatric/Behavioral: Negative for agitation and behavioral problems. Objective BP 142/103 Pulse 101 Temp 36.6 ?C (97.8 ?F) Resp 20 Wt (!) 141.1 kg (311 lb) LMP 01/11/2021 (Within Days) SpO2 98% BMI 51.75 kg/m? Physical Exam Vitals and nursing note reviewed. Constitutional: General: She is not in acute distress. Appearance: Normal appearance. She is normal weight. She is not ill-appearing, toxic-appearing or diaphoretic. HENT: Head: Normocephalic and atraumatic. Comments: +frontal sinus pressure +maxillary sinus pressure Right Ear: Ear canal and external ear normal. Left Ear: Ear canal and external ear normal. Nose: Nose normal. No congestion or rhinorrhea. Mouth/Throat: Mouth: Mucous membranes are moist. Pharynx: Posterior oropharyngeal erythema present. No oropharyngeal exudate. Eyes: (more content not included)... [facility] 07-16-2023 History of Presen t illness Narrative This note was created using NoteWriter. Subjective Kali Gonzalez is a 27 year old female. 27 year old female with PMH GERD and PCOS presents for illness. Acute onset several weeks ago +sinus congestion +nasal pressure +sputum production +cough +post nasal drainage +ill contacts Has used homeopathic or OTC Was on Augmentin one month ago for similar. The history is provided by the patient. No unmanned aircraft systems roboticist was used. Cough This is a new problem. The current episode started more than 1 week ago. The problem occurs constantly. The problem has not changed since onset.The cough is Productive of sputum. There has been no fever. Associated symptoms include ear congestion, ear pain, headaches, rhinorrhea and wheezing. Pertinent negatives include no chest pain, no chills, no sweats, no weight loss, no sore throat, no myalgias, no shortness of breath and no eye redness. She has tried decongestants for the symptoms. The treatment provided no relief. She is not a smoker. Her past medical history does not include bronchitis, pneumonia, bronchiectasis, COPD, emphysema or asthma. PAST MEDICAL HISTORY Diagnosis Date Chlamydia 08/14/2019 Chlamydia infection 06/16/2017 PCOS (polycystic ovarian syndrome) 05/11/2017 Pneumonia, organism unspecified(486) Trichomonas infection 05/04/2018 PAST SURGICAL HISTORY Procedure Laterality Date REM LESION FACE,EAR,EYE 0.6-1CM 08/27/2014 Exc. right ear helix keloid TMJ ALLERGIES Patient has no known allergies. MEDICATIONS albuterol HFA (PROVENTIL HFA, VENTOLIN HFA) 90 mcg/actuation inhaler Inhale 2 Puffs as instructed every 6 hours as needed for wheezing/shortness of breath. Omeprazole Magnesium (PRILOSEC OTC) 20 mg tablet Take 1 tablet by mouth daily before breakfast. 1/2 hr before meal. doxycycline (VIBRA-TABS) 100 mg tablet Take 1 tablet by mouth two times a day for 7 days. predniSONE (DELTASONE) 10 mg tablet Take 4 tabs daily for 3 days, then 2 tabs daily for 3 days, then 1 tab daily for 3 days with food. fluticasone (FLONASE) 50 mcg/actuation nasal spray Use 2 Sprays in each nostril once daily. Rinse mouth after use. benzonatate (TESSALON PERLES) 100 mg capsule Take 1 capsule by mouth three times a day as needed for cough. (Patient not taking: Reported on 07/16/2023) ondansetron orally disintegrating (ZOFRAN ODT) 4 mg disintegrating tablet Take 1 tablet by mouth every 8 hours as needed for nausea/vomiting. (Patient not taking: Reported on 06/18/2023) dicyclomine (BENTYL) 20 mg tablet Take 1 tablet by mouth three times daily as needed. (Patient not taking: Reported on 11/01/2022) FAMILY HISTORY Problem Relation Age of Onset Hypertension Maternal Grandmother Arthritis Maternal Grandmother Rheumotoid Cancer Maternal Grandfather Throat Diabetes Paternal Grandmother Cancer Paternal Grandfather Skin Hypertension Paternal Grandfather Colon Cancer No Family History Social History Tobacco Use Smoking status: Never Smokeless tobacco: Never Tobacco comments: dad smokes in home Vaping Use Vaping Use: Former Substance Use Topics Alcohol use: Never Drug use: No Review of Systems Constitutional: Positive for fatigue. Negative for chills, fever and weight loss. HENT: Positive for congestion, ear pain, rhinorrhea, sinus pressure, sinus pain and sneezing. Negative for sore throat. Eyes: Negative for pain, discharge, redness and itching. Respiratory: Positive for cough and wheezing. Negative for apnea, chest tightness and shortness of breath. Cardiovascular: Negative for chest pain. Gastrointestinal: Negative for abdominal pain, diarrhea, nausea and vomiting. Musculoskeletal: Negative for arthralgias, back pain, gait problem and myalgias. Skin: Negative for color change, pallor, rash and wound. Neurological: Positive for headaches. Hematological: Negative for adenopathy. Does not bruise/bleed easily. Psychiatric/Behavioral: Negative for agitation and behavioral problems. Objective BP 142/103 Pulse 101 Temp 36.6 C (97.8 F) Resp 20 Wt (!) 141.1 kg (311 lb) LMP 01/11/2021 (Within Days) SpO2 98% BMI 51.75 kg/m Physical Exam Vitals and nursing note reviewed. Constitutional: General: She is not in acute distress. Appearance: Normal appearance. She is normal weight. She is not ill-appearing, toxic-appearing or diaphoretic. HENT: Head: Normocephalic and atraumatic. Comments: +frontal sinus pressure +maxillary sinus pressure Right Ear: Ear canal and external ear normal. Left Ear: Ear canal and external ear normal. Nose: Nose normal. No congestion or rhinorrhea. Mouth/Throat: Mouth: Mucous membranes are moist. Pharynx: Posterior oropharyngeal erythema present. No oropharyngeal exudate. Eyes: General: Right eye: No discharge. Left eye: No discharge. Extraocular Movements: Extraocular movements intact. Conjunctiva/sclera: Conjunctivae normal. Pupils: Pupils are equal, round, and reactive to light. Cardiovascular: Rate and Rhythm: Normal rate and regular rhythm. Pulses: Normal pulses. Heart sounds: Normal heart sounds. No murmur heard. No friction rub. Pulmonary: Effort: Pulmonary effort is normal. No respiratory distress. Breath sounds: Normal breath sounds. No stridor. No wheezing, rhonchi or rales. Chest: Chest wall: No tenderness. Abdominal: General: Abdomen is flat. There is no distension. Palpations: Abdomen is soft. There is no mass. Tenderness: There is no abdominal tenderness. There is no right CVA tenderness, left CVA tenderness, guarding or rebound. Hernia: No hernia is present. Musculoskeletal: General: No swelling, tenderness, deformity or signs of injury. Normal range of motion. Cervical back: Normal range of motion and neck supple. No rigidity. Right lower leg: No edema. Left lower leg: No edema. Lymphadenopathy: Cervical: No cervical adenopathy. Skin: General: Skin is warm and dry. Capillary Refill: Capillary refill takes less than 2 seconds. Coloration: Skin is not jaundiced or pale. Findings: No bruising, erythema, lesion or rash. Neurological: General: No focal deficit present. Mental Status: She is alert and oriented to person, place, and time. Cranial Nerves: No cranial nerve deficit. Sensory: No sensory deficit. Motor: No weakness. Coordination: Coordination normal. Gait: Gait normal. Psychiatric: Mood and Affect: Mood normal. Behavior: Behavior normal. Thought Content: Thought content normal. Judgment: Judgment normal. Assessment and Plan ASSESSMENT/PLAN: 1. Rhinosinusitis - ICD9: 473.9, ICD10: J32.9 - Will begin treatment with as per antibiotic as written, see orders RX Prednisone taper RX Flonase - The patient should also be given OTC cough and cold meds as needed, warm salt water gargles, throat lozenges and/or OTC throat spray as needed, and nasal saline gtts and suction prn for the first 5-7 days of treatment. - Supportive care with plenty of fluids, rest, and analgesia prn. - Follow up in 3-5 days if symptoms persist or worsen. Ros Langley APRN.KARO documented in this encounter [facility] 06-28-2023 Note HNO ID: [id number] Author: Soumya Gandhi RT(R) Service: ? Author Type: Import Manager Type: Progress Notes Filed: 06/28/2023 5:50 PM Note Text: Radiology Service Progress Note PATIENT NAME: Kali Gonzalez DATE OF SERVICE: June 28, 2023 TIME: 5:44 PM PATIENT IDENTITY VERIFICATION COMPLETED USING TWO (2) IDENTIFIERS: Name and Date of confirmed by patient verbally. FALL SCREENING: Has the patient had 2 falls in the last year or 1 fall with injury or currently using an Ambulatory Assistive Device (Walker, Cane, Wheelchair, Crutches, etc.)? No PATIENT GENDER DATA: Female. status: : No status: NO. PATIENT RELEVANT IMPLANT DATA REVIEWED: Yes RADIOLOGY DEPARTMENT: General X-ray: Exam(s) Completed: Chest X-Ray PERIPHERAL IV DATA: Not applicable SIGNED BY: RT Anali(R) June 28, 2023 5:44 PM [facility] 06-28-2023 Note HNO ID: [id number] Author: Ana Le APRN.CNP Service: ? Author Type: Nurse Practitioner Type: Progress Notes Filed: 06/28/2023 5:59 PM Note Text: CC: Patient presents with: Cough: Congestion, fever, body aches, nausea, vomiting, stomach aches x 1.5 weeks HPI: Kali Gonzalez is a 27 year old female who presents to the office with complaint of head congestion and cough, nonproductive for 1.5 weeks. Symptoms are worsening Associated symptoms includes nausea and vomiting . Denies fever, ear pain, and diarrhea. Treatments tried include nothing so far. with no relief of symptoms. Sick contacts: unknown. History of asthma, frequent episodes of bronchitis, chronic bronchitis, bronchiectasis or COPD: No Smoker: No Seasonal/environmental allergies: No The ROS is otherwise negative. The patient's pmh, medications, allergies, and past visits are reviewed. PHYSICAL EXAM: BP 120/82 Pulse 110 Temp 36.8 ?C (98.3 ?F) Resp 21 Wt (!) 137.3 kg (302 lb 9.6 oz) LMP 01/11/2021 (Within Days) SpO2 96% BMI 50.36 kg/m? General appearance: alert, cooperative, pleasant, in no acute distress Head: Normocephalic Eyes: EOM's intact, conjunctiva pink and moist, no icterus, sclera white, non-injected Ears: Right ear: External ear/canal- Normal, TM - clear with good landmarks. Left ear: External ear/canal- Normal, TM - clear with good landmarks Oropharynx:moist without lesions, No erythema, exudates or tonsillar hypertrophy. Heart: Negative. RRR without obvious murmur, gallop, or rubs. No ectopy. Lungs: mild wheezing diffusely PAST MEDICAL HISTORY Diagnosis Date Chlamydia 08/14/2019 Chlamydia infection 06/16/2017 PCOS (polycystic ovarian syndrome) 05/11/2017 Pneumonia, organism unspecified(486) Trichomonas infection 05/04/2018 PAST SURGICAL HISTORY Procedure Laterality Date REM LESION FACE,EAR,EYE 0.6-1CM 08/27/2014 Exc. right ear helix keloid TMJ ALLERGIES Patient has no known allergies. MEDICATIONS benzonatate (TESSALON PERLES) 100 mg capsule Take 1 capsule by mouth three times a day as needed for cough. albuterol HFA (PROVENTIL HFA, VENTOLIN HFA) 90 mcg/actuation inhaler Inhale 2 Puffs as instructed every 6 hours as needed for wheezing/shortness of breath. Omeprazole Magnesium (PRILOSEC OTC) 20 mg tablet Take 1 tablet by mouth daily before breakfast. 1/2 hr before meal. ondansetron orally disintegrating (ZOFRAN ODT) 4 mg disintegrating tablet Take 1 tablet by mouth every 8 hours as needed for nausea/vomiting. (Patient not taking: Reported on 06/18/2023) dicyclomine (BENTYL) 20 mg tablet Take 1 tablet by mouth three times daily as needed. (Patient not taking: Reported on 11/01/2022) FAMILY HISTORY Problem Relation Age of Onset Hypertension Maternal Grandmother Arthritis Maternal Grandmother Rheumotoid Cancer Maternal Grandfather Throat Diabetes Paternal Grandmother Cancer Paternal Grandfather Skin Hypertension Paternal Grandfather Colon Cancer No Family History Social History Tobacco Use Smoking status: Never Smokeless tobacco: Never Tobacco comments: dad smokes in home Vaping Use Vaping Use: Former Substance Use Topics Alcohol use: Never Drug use: No ASSESSMENT/PLAN: 1. Acute cough - ICD9: 786.2, ICD10: R05.1 (primary diagnosis) - XR CHEST 2V FRONTAL/LAT * * * * Physician Interpretation * * * * EXAMINATION: CHEST RADIOGRAPH (2 VIEW FRONTAL AND LATERAL) CLINICAL HISTORY: Acute cough MQ: [id number] EXAM DATE/TIME: 06/28/2023 5:51 PM COMPARISON: 07/29/2018. RESULT: This is a somewhat limited examination due to the patient's size. Lines, tubes, and devices: None. Lungs and pleura: No consolidation. No lung mass. No pleural effusion. No pneumothorax. Cardiomediastinal silhouette: Normal cardiomediastinal silhouette. Bones and soft tissues: Unremarkable. IMPRESSION IMPRESSION: Stable exam with no definite acute radiographic abnormality. Compressor Station Operator: JUANITA Transcribe Date/Time: Jun 28 2023 5:53P Dictated by : GENOVEVA VILLATORO MD 2. Rhinosinusitis - ICD9: 473.9, ICD10: J32.9 - AMOXICILLIN 875 MG-POTASSIUM CLAVULANATE 125 MG TABLET Prescription instructions reviewed with patient as applicable. Potential red flag symptoms discussed with the patient. Reviewed appropriate action plan to take if red flag symptoms occur. Patient agreeable to treatment plan. Ana Le APRN.[facility] 06-28-2023 History of Presen t illness Narrative CC: Patient presents with: Cough: Congestion, fever, body aches, nausea, vomiting, stomach aches x 1.5 weeks HPI: Kali Gonzalez is a 27 year old female who presents to the office with complaint of head congestion and cough, nonproductive for 1.5 weeks. Symptoms are worsening Associated symptoms includes nausea and vomiting . Denies fever, ear pain, and diarrhea. Treatments tried include nothing so far. with no relief of symptoms. Sick contacts: unknown. History of asthma, frequent episodes of bronchitis, chronic bronchitis, bronchiectasis or COPD: No Smoker: No Seasonal/environmental allergies: No The ROS is otherwise negative. The patient's pmh, medications, allergies, and past visits are reviewed. PHYSICAL EXAM: BP 120/82 Pulse 110 Temp 36.8 C (98.3 F) Resp 21 Wt (!) 137.3 kg (302 lb 9.6 oz) LMP 01/11/2021 (Within Days) SpO2 96% BMI 50.36 kg/m General appearance: alert, cooperative, pleasant, in no acute distress Head: Normocephalic Eyes: EOM's intact, conjunctiva pink and moist, no icterus, sclera white, non-injected Ears: Right ear: External ear/canal- Normal, TM - clear with good landmarks. Left ear: External ear/canal- Normal, TM - clear with good landmarks Oropharynx:moist without lesions, No erythema, exudates or tonsillar hypertrophy. Heart: Negative. RRR without obvious murmur, gallop, or rubs. No ectopy. Lungs: mild wheezing diffusely PAST MEDICAL HISTORY Diagnosis Date Chlamydia 08/14/2019 Chlamydia infection 06/16/2017 PCOS (polycystic ovarian syndrome) 05/11/2017 Pneumonia, organism unspecified(486) Trichomonas infection 05/04/2018 PAST SURGICAL HISTORY Procedure Laterality Date REM LESION FACE,EAR,EYE 0.6-1CM 08/27/2014 Exc. right ear helix keloid TMJ ALLERGIES Patient has no known allergies. MEDICATIONS benzonatate (TESSALON PERLES) 100 mg capsule Take 1 capsule by mouth three times a day as needed for cough. albuterol HFA (PROVENTIL HFA, VENTOLIN HFA) 90 mcg/actuation inhaler Inhale 2 Puffs as instructed every 6 hours as needed for wheezing/shortness of breath. Omeprazole Magnesium (PRILOSEC OTC) 20 mg tablet Take 1 tablet by mouth daily before breakfast. 1/2 hr before meal. ondansetron orally disintegrating (ZOFRAN ODT) 4 mg disintegrating tablet Take 1 tablet by mouth every 8 hours as needed for nausea/vomiting. (Patient not taking: Reported on 06/18/2023) dicyclomine (BENTYL) 20 mg tablet Take 1 tablet by mouth three times daily as needed. (Patient not taking: Reported on 11/01/2022) FAMILY HISTORY Problem Relation Age of Onset Hypertension Maternal Grandmother Arthritis Maternal Grandmother Rheumotoid Cancer Maternal Grandfather Throat Diabetes Paternal Grandmother Cancer Paternal Grandfather Skin Hypertension Paternal Grandfather Colon Cancer No Family History Social History Tobacco Use Smoking status: Never Smokeless tobacco: Never Tobacco comments: dad smokes in home Vaping Use Vaping Use: Former Substance Use Topics Alcohol use: Never Drug use: No ASSESSMENT/PLAN: 1. Acute cough - ICD9: 786.2, ICD10: R05.1 (primary diagnosis) - XR CHEST 2V FRONTAL/LAT * * * * Physician Interpretation * * * * EXAMINATION: CHEST RADIOGRAPH (2 VIEW FRONTAL & LATERAL) CLINICAL HISTORY: Acute cough MQ: [id number] EXAM DATE/TIME: 06/28/2023 5:51 PM COMPARISON: 07/29/2018. RESULT: This is a somewhat limited examination due to the patient's size. Lines, tubes, and devices: None. Lungs and pleura: No consolidation. No lung mass. No pleural effusion. No pneumothorax. Cardiomediastinal silhouette: Normal cardiomediastinal silhouette. Bones and soft tissues: Unremarkable. IMPRESSION IMPRESSION: Stable exam with no definite acute radiographic abnormality. Compressor Station Operator: JUANITA Transcribe Date/Time: Jun 28 2023 5:53P Dictated by : GENOVEVA VILLATORO MD 2. Rhinosinusitis - ICD9: 473.9, ICD10: J32.9 - AMOXICILLIN 875 MG-POTASSIUM CLAVULANATE 125 MG TABLET Prescription instructions reviewed with patient as applicable. Potential red flag symptoms discussed with the patient. Reviewed appropriate action plan to take if red flag symptoms occur. Patient agreeable to treatment plan. Ana Le APRN.[facility]O documented in this encounter [facility] 06-18-2023 Note HNO ID: [id number] Author: Ernie Baptiste APRN.KARO Service: ? Author Type: Nurse Practitioner Type: Progress Notes Filed: 06/18/2023 1:00 PM Note Text: Subjective HPI Nontoxic-appearing female presents urgent care chief complaint cough chest congestion. Duration of symptoms 1 week. Associated symptoms listed above. Most prominent symptom today is cough. No fevers during this illness. Feels like she is improving but cough is staying persistent. History of viral bronchitis this feels similar. Denies any fever body aches chills productive cough chest pain shortness of breath pleuritic pain hemoptysis nausea vomiting abdominal pain change in bowel or bladder habits. Past medical history prescription medication use and allergies reviewed. Denies chance of is not breast-feeding. .Patient presents with: Chest Congestion: nasal drainage, cough x 1 week PAST MEDICAL HISTORY Diagnosis Date Chlamydia 08/14/2019 Chlamydia infection 06/16/2017 PCOS (polycystic ovarian syndrome) 05/11/2017 Pneumonia, organism unspecified(486) Trichomonas infection 05/04/2018 PAST SURGICAL HISTORY Procedure Laterality Date REM LESION FACE,EAR,EYE 0.6-1CM 08/27/2014 Exc. right ear helix keloid TMJ ALLERGIES Patient has no known allergies. MEDICATIONS albuterol HFA (PROVENTIL HFA, VENTOLIN HFA) 90 mcg/actuation inhaler Inhale 2 Puffs as instructed every 6 hours as needed for wheezing/shortness of breath. Omeprazole Magnesium (PRILOSEC OTC) 20 mg tablet Take 1 tablet by mouth daily before breakfast. 1/2 hr before meal. predniSONE (DELTASONE) 10 mg tablet Take 4 tablets by mouth once daily for 5 days. benzonatate (TESSALON PERLES) 100 mg capsule Take 1 capsule by mouth three times a day as needed for cough. ondansetron orally disintegrating (ZOFRAN ODT) 4 mg disintegrating tablet Take 1 tablet by mouth every 8 hours as needed for nausea/vomiting. (Patient not taking: Reported on 06/18/2023) dicyclomine (BENTYL) 20 mg tablet Take 1 tablet by mouth three times daily as needed. (Patient not taking: Reported on 11/01/2022) FAMILY HISTORY Problem Relation Age of Onset Hypertension Maternal Grandmother Arthritis Maternal Grandmother Rheumotoid Cancer Maternal Grandfather Throat Diabetes Paternal Grandmother Cancer Paternal Grandfather Skin Hypertension Paternal Grandfather Colon Cancer No Family History Social History Tobacco Use Smoking status: Never Smokeless tobacco: Never Tobacco comments: dad smokes in home Vaping Use Vaping Use: Former Substance Use Topics Alcohol use: Never Drug use: No BP 126/84 Pulse 83 Temp 36.7 ?C (98 ?F) Resp 16 Wt (!) 137.4 kg (303 lb) LMP 01/11/2021 (Within Days) SpO2 96% BMI 50.42 kg/m? Review of Systems Constitutional: Negative for chills, fever and malaise/fatigue. HENT: Positive for congestion. Negative for ear discharge, ear pain, sinus pain and sore throat. Eyes: Negative for blurred vision, pain, discharge and redness. Respiratory: Positive for cough. Negative for hemoptysis, sputum production, shortness of breath, wheezing and stridor. Cardiovascular: Negative for chest pain. Gastrointestinal: Negative for abdominal pain, diarrhea, nausea and vomiting. Musculoskeletal: Negative for myalgias. Skin: Negative for itching and rash. Neurological: Negative for dizziness and headaches. Objective Physical Exam Constitutional: General: She is not in acute distress. Appearance: She is not diaphoretic. HENT: Head: Normocephalic. Jaw: No trismus, tenderness, swelling or pain on movement. Nose: Congestion present. Mouth/Throat: Mouth: Mucous membranes are moist. Pharynx: Oropharynx is clear. Uvula midline. No pharyngeal swelling, oropharyngeal exudate, posterior oropharyngeal erythema or uvula swelling. Eyes: Conjunctiva/sclera: Conjunctivae normal. Pupils: Pupils are equal, round, and reactive to light. Cardiovascular: Rate and Rhythm: Normal rate and regular rhythm. Heart sounds: Normal heart sounds. Pulmonary: Effort: Pulmonary effort is normal. No tachypnea, accessory muscle usage or respiratory distress. Breath sounds: Normal breath sounds. No stridor. No wheezing, rhonchi or rales. Abdominal: General: There is no distension. Palpations: Abdomen is soft. Tenderness: There is no abdominal tenderness. There is no guarding or rebound. Musculoskeletal: Cervical back: Normal range of motion and neck supple. No edema, erythema, rigidity or tenderness. No pain with movement. Normal range of motion. Lymphadenopathy: Cervical: No cervical adenopathy. Skin: General: Skin is warm and dry. Neurological: Mental Status: She is alert and oriented to person, place, and time. ASSESSMENT/PLAN: 1. Viral bronchitis - ICD9: 466.0, ICD10: J20.8 Day 6 of illness. No fevers. Not tachycardic or tachypneic. No adventitious lung sounds. Treat as viral illness. (more content not included)... [facility] 06-18-2023 History of Presen t illness Narrative Subjective HPI Nontoxic-appearing female presents urgent care chief complaint cough chest congestion. Duration of symptoms 1 week. Associated symptoms listed above. Most prominent symptom today is cough. No fevers during this illness. Feels like she is improving but cough is staying persistent. History of viral bronchitis this feels similar. Denies any fever body aches chills productive cough chest pain shortness of breath pleuritic pain hemoptysis nausea vomiting abdominal pain change in bowel or bladder habits. Past medical history prescription medication use and allergies reviewed. Denies chance of is not breast-feeding. .Patient presents with: Chest Congestion: nasal drainage, cough x 1 week PAST MEDICAL HISTORY Diagnosis Date Chlamydia 08/14/2019 Chlamydia infection 06/16/2017 PCOS (polycystic ovarian syndrome) 05/11/2017 Pneumonia, organism unspecified(486) Trichomonas infection 05/04/2018 PAST SURGICAL HISTORY Procedure Laterality Date REM LESION FACE,EAR,EYE 0.6-1CM 08/27/2014 Exc. right ear helix keloid TMJ ALLERGIES Patient has no known allergies. MEDICATIONS albuterol HFA (PROVENTIL HFA, VENTOLIN HFA) 90 mcg/actuation inhaler Inhale 2 Puffs as instructed every 6 hours as needed for wheezing/shortness of breath. Omeprazole Magnesium (PRILOSEC OTC) 20 mg tablet Take 1 tablet by mouth daily before breakfast. 1/2 hr before meal. predniSONE (DELTASONE) 10 mg tablet Take 4 tablets by mouth once daily for 5 days. benzonatate (TESSALON PERLES) 100 mg capsule Take 1 capsule by mouth three times a day as needed for cough. ondansetron orally disintegrating (ZOFRAN ODT) 4 mg disintegrating tablet Take 1 tablet by mouth every 8 hours as needed for nausea/vomiting. (Patient not taking: Reported on 06/18/2023) dicyclomine (BENTYL) 20 mg tablet Take 1 tablet by mouth three times daily as needed. (Patient not taking: Reported on 11/01/2022) FAMILY HISTORY Problem Relation Age of Onset Hypertension Maternal Grandmother Arthritis Maternal Grandmother Rheumotoid Cancer Maternal Grandfather Throat Diabetes Paternal Grandmother Cancer Paternal Grandfather Skin Hypertension Paternal Grandfather Colon Cancer No Family History Social History Tobacco Use Smoking status: Never Smokeless tobacco: Never Tobacco comments: dad smokes in home Vaping Use Vaping Use: Former Substance Use Topics Alcohol use: Never Drug use: No BP 126/84 Pulse 83 Temp 36.7 C (98 F) Resp 16 Wt (!) 137.4 kg (303 lb) LMP 01/11/2021 (Within Days) SpO2 96% BMI 50.42 kg/m Review of Systems Constitutional: Negative for chills, fever and malaise/fatigue. HENT: Positive for congestion. Negative for ear discharge, ear pain, sinus pain and sore throat. Eyes: Negative for blurred vision, pain, discharge and redness. Respiratory: Positive for cough. Negative for hemoptysis, sputum production, shortness of breath, wheezing and stridor. Cardiovascular: Negative for chest pain. Gastrointestinal: Negative for abdominal pain, diarrhea, nausea and vomiting. Musculoskeletal: Negative for myalgias. Skin: Negative for itching and rash. Neurological: Negative for dizziness and headaches. Objective Physical Exam Constitutional: General: She is not in acute distress. Appearance: She is not diaphoretic. HENT: Head: Normocephalic. Jaw: No trismus, tenderness, swelling or pain on movement. Nose: Congestion present. Mouth/Throat: Mouth: Mucous membranes are moist. Pharynx: Oropharynx is clear. Uvula midline. No pharyngeal swelling, oropharyngeal exudate, posterior oropharyngeal erythema or uvula swelling. Eyes: Conjunctiva/sclera: Conjunctivae normal. Pupils: Pupils are equal, round, and reactive to light. Cardiovascular: Rate and Rhythm: Normal rate and regular rhythm. Heart sounds: Normal heart sounds. Pulmonary: Effort: Pulmonary effort is normal. No tachypnea, accessory muscle usage or respiratory distress. Breath sounds: Normal breath sounds. No stridor. No wheezing, rhonchi or rales. Abdominal: General: There is no distension. Palpations: Abdomen is soft. Tenderness: There is no abdominal tenderness. There is no guarding or rebound. Musculoskeletal: Cervical back: Normal range of motion and neck supple. No edema, erythema, rigidity or tenderness. No pain with movement. Normal range of motion. Lymphadenopathy: Cervical: No cervical adenopathy. Skin: General: Skin is warm and dry. Neurological: Mental Status: She is alert and oriented to person, place, and time. ASSESSMENT/PLAN: 1. Viral bronchitis - ICD9: 466.0, ICD10: J20.8 Day 6 of illness. No fevers. Not tachycardic or tachypneic. No adventitious lung sounds. Treat as viral illness. No antibiotics today. Patient was educated on supportive therapies. Patient will follow up with primary care provider 2 to 3 days. Patient was instructed to immediately proceed to emergency room for any new, worsening, or symptoms lasting longer than anticipated. The patient's clinical presentation is otherwise unremarkable at this time. Based on exam and clinical finding, the patient is stable for discharge. Plan of care was discussed with patient. Patient verbalizes understanding and agrees to plan of care. This note was generated using ArthroCAD software. It may contain errors in wording, punctuation, or spelling. Ernie Baptiste APRN.[facility] documented in this encounter [facility] 12-06-2022 Note HNO ID: [id number] Author: Tori Bernard APRN.KARO Service: ? Author Type: Nurse Practitioner Type: Progress Notes Filed: 12/06/2022 9:49 AM Note Text: Subjective The history is provided by the patient. No unmanned aircraft systems roboticist was used. HPI Kali Gonzalez is a 27 year old female who presents today for CC of left ear pain that started yesterday. She started a week ago with cough, congestion and sore throat. Still having congestion, and drainage. She was seen a week ago and given prednisone and tesslon perls which did help while on. Needs refill on tesslon perls. BP 112/76 Pulse 104 Temp 36.4 ?C (97.5 ?F) (Tympanic) Resp 16 Wt (!) 137.9 kg (304 lb) LMP 01/11/2021 (Within Days) SpO2 97% BMI 50.59 kg/m? Social History Tobacco Use Smoking status: Never Smokeless tobacco: Never Tobacco comments: dad smokes in home Vaping Use Vaping Use: Former Substance Use Topics Alcohol use: Never Drug use: No PAST MEDICAL HISTORY Diagnosis Date Chlamydia 08/14/2019 Chlamydia infection 06/16/2017 PCOS (polycystic ovarian syndrome) 05/11/2017 Pneumonia, organism unspecified(486) Trichomonas infection 05/04/2018 I have confirmed and edited as necessary, the [facility] Review of Systems Constitutional: Negative for chills and fever. HENT: Positive for congestion and sinus pain. Negative for ear pain and sore throat. Respiratory: Positive for cough. Negative for sputum production, shortness of breath and wheezing. Cardiovascular: Negative for chest pain. Gastrointestinal: Negative for abdominal pain, diarrhea, nausea and vomiting. Musculoskeletal: Negative for myalgias. Neurological: Negative for headaches. Objective Physical Exam Vitals and nursing note reviewed. HENT: Head: Normocephalic and atraumatic. Right Ear: Tympanic membrane, ear canal and external ear normal. Left Ear: Ear canal and external ear normal. A middle ear effusion is present. Tympanic membrane is injected and bulging. Nose: Mucosal edema, congestion and rhinorrhea present. Right Sinus: No maxillary sinus tenderness or frontal sinus tenderness. Left Sinus: No maxillary sinus tenderness or frontal sinus tenderness. Mouth/Throat: Pharynx: Uvula midline. No oropharyngeal exudate or posterior oropharyngeal erythema. Cardiovascular: Rate and Rhythm: Normal rate and regular rhythm. Heart sounds: Normal heart sounds. Pulmonary: Effort: Pulmonary effort is normal. Breath sounds: Normal breath sounds. Lymphadenopathy: Head: Right side of head: No submental, submandibular or tonsillar adenopathy. Left side of head: No submental, submandibular or tonsillar adenopathy. Cervical: No cervical adenopathy. Skin: General: Skin is warm and dry. Neurological: Mental Status: She is alert. Psychiatric: Mood and Affect: Affect normal. ASSESSMENT/PLAN: 1. URI with cough and congestion - ICD9: 465.9, ICD10: J06.9 (primary diagnosis) - Discussed viral etiology and rationale for treatment. - Symptomatic treatment with prn analgesia - Supportive care with fluids and rest - renew hallie perlbee 2. Non-recurrent acute suppurative otitis media of left ear without spontaneous rupture of tympanic membrane - ICD9: 382.00, ICD10: H66.002 - Will begin treatment with Augmentin 875 mg PO BID for 7 days Diagnosis and treatment plan were discussed and questions were answered to the patient's satisfaction. Pt acknowledged understanding of concepts and follow up plan. Specific signs and symptoms that would indicate the need for higher level of care were discussed in detail warranting prompt ER evaluation. Tori Bernard APRN.[employer] [facility] 12-06-2022 Instructions Tori Bernard APRN.CNP - 12/06/2022 9:28 AM EDT Augmentin as ordered Rest, increase water intake Motrin or Tylenol as needed for fever or pain. Salt water gargles, chloraseptic spray or lozenges as needed for sore throat. Warm beverages, honey. Nasal saline spray as needed Cool mist humidifier at night Tessalon Perles 1-2 every 8 hours, do not combine this with robitussin or delsym * Seek medical care immediately, call 911, go to ER if you have chest pain, difficulty breathing, shortness of breath, inability to swallow. documented in this encounter [facility] 12-06-2022 History of Presen t illness Narrative Subjective The history is provided by the patient. No unmanned aircraft systems roboticist was used. HPI Kali Gonzalez is a 27 year old female who presents today for CC of left ear pain that started yesterday. She started a week ago with cough, congestion and sore throat. Still having congestion, and drainage. She was seen a week ago and given prednisone and tesslon perls which did help while on. Needs refill on tesslon perls. BP 112/76 Pulse 104 Temp 36.4 C (97.5 F) (Tympanic) Resp 16 Wt (!) 137.9 kg (304 lb) LMP 01/11/2021 (Within Days) SpO2 97% BMI 50.59 kg/m Social History Tobacco Use Smoking status: Never Smokeless tobacco: Never Tobacco comments: dad smokes in home Vaping Use Vaping Use: Former Substance Use Topics Alcohol use: Never Drug use: No PAST MEDICAL HISTORY Diagnosis Date Chlamydia 08/14/2019 Chlamydia infection 06/16/2017 PCOS (polycystic ovarian syndrome) 05/11/2017 Pneumonia, organism unspecified(486) Trichomonas infection 05/04/2018 I have confirmed and edited as necessary, the [facility] Review of Systems Constitutional: Negative for chills and fever. HENT: Positive for congestion and sinus pain. Negative for ear pain and sore throat. Respiratory: Positive for cough. Negative for sputum production, shortness of breath and wheezing. Cardiovascular: Negative for chest pain. Gastrointestinal: Negative for abdominal pain, diarrhea, nausea and vomiting. Musculoskeletal: Negative for myalgias. Neurological: Negative for headaches. Objective Physical Exam Vitals and nursing note reviewed. HENT: Head: Normocephalic and atraumatic. Right Ear: Tympanic membrane, ear canal and external ear normal. Left Ear: Ear canal and external ear normal. A middle ear effusion is present. Tympanic membrane is injected and bulging. Nose: Mucosal edema, congestion and rhinorrhea present. Right Sinus: No maxillary sinus tenderness or frontal sinus tenderness. Left Sinus: No maxillary sinus tenderness or frontal sinus tenderness. Mouth/Throat: Pharynx: Uvula midline. No oropharyngeal exudate or posterior oropharyngeal erythema. Cardiovascular: Rate and Rhythm: Normal rate and regular rhythm. Heart sounds: Normal heart sounds. Pulmonary: Effort: Pulmonary effort is normal. Breath sounds: Normal breath sounds. Lymphadenopathy: Head: Right side of head: No submental, submandibular or tonsillar adenopathy. Left side of head: No submental, submandibular or tonsillar adenopathy. Cervical: No cervical adenopathy. Skin: General: Skin is warm and dry. Neurological: Mental Status: She is alert. Psychiatric: Mood and Affect: Affect normal. ASSESSMENT/PLAN: 1. URI with cough and congestion - ICD9: 465.9, ICD10: J06.9 (primary diagnosis) - Discussed viral etiology and rationale for treatment. - Symptomatic treatment with prn analgesia - Supportive care with fluids and rest - renew hallie smith 2. Non-recurrent acute suppurative otitis media of left ear without spontaneous rupture of tympanic membrane - ICD9: 382.00, ICD10: H66.002 - Will begin treatment with Augmentin 875 mg PO BID for 7 days Diagnosis and treatment plan were discussed and questions were answered to the patient's satisfaction. Pt acknowledged understanding of concepts and follow up plan. Specific signs and symptoms that would indicate the need for higher level of care were discussed in detail warranting prompt ER evaluation. Tori Bernard APRN.KARO documented in this encounter [facility] 12-02-2022 Miscellaneous Notes Patient calls in and notified of order for tata spence. Patient verbalizes understanding. Briana Sher RN Muluelysiaanna Jo called in. Please advise patient. Patient calling no pharmacy in [facility] has the cough syrup (Codeine-guaifenesin) at all. Patient was seen in express care yesterday and really needs something for her cough. Patient is asking if she could have something else sent to [facility] that would be in stock please. Please advise documented in this encounter [facility] 12-01-2022 Miscellaneous Notes Sent to new pharmacy at 3:30 pm. Darling Vasques APRN.KARO Patient calling back said the pharmacy closes at 6 pm and hoping can get rx sent to other pharmacy quickl. Reset rx to file to [facility]. Please advise Patient was seen in Express Care today by provider. Pt calling and states [facility] is unable to fill her script for codeine-guaifenesin. States it is not available there. Patient verified that they do have it available at [facility] in [place], if provider would send script there. Thank you. documented in this encounter [facility] 12-01-2022 Note HNO ID: [id number] Author: Darling Vasques APRN.[facility] Service: ? Author Type: Nurse Practitioner Type: Progress Notes Filed: 12/01/2022 12:20 PM Note Text: Subjective Cough Associated symptoms include myalgias, shortness of breath and wheezing. Pertinent negatives include no chills, no ear pain and no sore throat. Kali Gonzalez is a 27 year old female who presents with cough, congestion, chest congestion, body aches. She has not had a fever. She went to the ER for this and they did a chest xray and EKG which were normal, and gave her Naproxen for pain. She is not feeling any better on that medication. She did a home COVID test which was negative. Review of Systems Constitutional: Negative for chills and fever. HENT: Positive for congestion. Negative for ear pain and sore throat. Respiratory: Positive for cough, shortness of breath and wheezing. Cardiovascular: Negative. Musculoskeletal: Positive for myalgias. BP 132/86 Pulse 100 Temp 37.5 ?C (99.5 ?F) Resp 20 Wt 135 kg (297 lb 9.6 oz) LMP 01/11/2021 (Within Days) SpO2 96% BMI 49.52 kg/m? PAST MEDICAL HISTORY Diagnosis Date Chlamydia 08/14/2019 Chlamydia infection 06/16/2017 PCOS (polycystic ovarian syndrome) 05/11/2017 Pneumonia, organism unspecified(486) Trichomonas infection 05/04/2018 PAST SURGICAL HISTORY Procedure Laterality Date REM LESION FACE,EAR,EYE 0.6-1CM 08/27/2014 Exc. right ear helix keloid TMJ ALLERGIES Patient has no known allergies. MEDICATIONS ondansetron orally disintegrating (ZOFRAN ODT) 4 mg disintegrating tablet Take 1 tablet by mouth every 8 hours as needed for nausea/vomiting. Omeprazole Magnesium (PRILOSEC OTC) 20 mg tablet Take 1 tablet by mouth daily before breakfast. 1/2 hr before meal. Codeine-guaiFENesin 10-200 mg/5 mL liqd Take 5 mL by mouth three times daily as needed for up to 7 days. albuterol HFA (PROVENTIL HFA, VENTOLIN HFA) 90 mcg/actuation inhaler Inhale 2 Puffs as instructed every 6 hours as needed for wheezing/shortness of breath. Inhalational Spacing Device 1 Device one time only for 1 dose. predniSONE (DELTASONE) 20 mg tablet Take 2 tablets by mouth once daily for 4 days. Take daily with food. dicyclomine (BENTYL) 20 mg tablet Take 1 tablet by mouth three times daily as needed. (Patient not taking: Reported on 11/01/2022) FAMILY HISTORY Problem Relation Age of Onset Hypertension Maternal Grandmother Arthritis Maternal Grandmother Rheumotoid Cancer Maternal Grandfather Throat Diabetes Paternal Grandmother Cancer Paternal Grandfather Skin Hypertension Paternal Grandfather Colon Cancer No Family History Social History Tobacco Use Smoking status: Never Smokeless tobacco: Never Tobacco comments: dad smokes in home Vaping Use Vaping Use: Former Substance Use Topics Alcohol use: Never Drug use: No Objective Physical Exam Vitals and nursing note reviewed. Constitutional: Appearance: Normal appearance. She is obese. HENT: Right Ear: Tympanic membrane, ear canal and external ear normal. Left Ear: Tympanic membrane, ear canal and external ear normal. Nose: Nose normal. Mouth/Throat: Pharynx: Uvula midline. No oropharyngeal exudate or posterior oropharyngeal erythema. Cardiovascular: Rate and Rhythm: Normal rate and regular rhythm. Heart sounds: Normal heart sounds. Pulmonary: Effort: Pulmonary effort is normal. No respiratory distress. Breath sounds: Wheezing (slight) present. No rales. Musculoskeletal: Cervical back: Neck supple. Lymphadenopathy: Cervical: No cervical adenopathy. Skin: General: Skin is warm and dry. Findings: No erythema or rash. Neurological: Mental Status: She is alert. ASSESSMENT/PLAN: 1. Viral bronchitis - ICD9: 466.0, ICD10: J20.8 - CODEINE 10 MG-GUAIFENESIN 200 MG/5 ML ORAL LIQUID - ALBUTEROL SULFATE HFA 90 MCG/ACTUATION AEROSOL INHALER - INHALATIONAL SPACING DEVICE - PREDNISONE 20 MG TABLET - Follow-up with your PCP in 3-5 days if symptoms have not improved or sooner if symptoms worsen - Discussed red flags and need for immediate medical evaluation if any occur. - Discussed supportive care treatment with fluids, rest and analgesia. - Discussed expected course of illness Darling Vasques APRN.[facility] 12-01-2022 History of Presen t illness Narrative Subjective Cough Associated symptoms include myalgias, shortness of breath and wheezing. Pertinent negatives include no chills, no ear pain and no sore throat. Kali Gonzalez is a 27 year old female who presents with cough, congestion, chest congestion, body aches. She has not had a fever. She went to the ER for this and they did a chest xray and EKG which were normal, and gave her Naproxen for pain. She is not feeling any better on that medication. She did a home COVID test which was negative. Review of Systems Constitutional: Negative for chills and fever. HENT: Positive for congestion. Negative for ear pain and sore throat. Respiratory: Positive for cough, shortness of breath and wheezing. Cardiovascular: Negative. Musculoskeletal: Positive for myalgias. BP 132/86 Pulse 100 Temp 37.5 C (99.5 F) Resp 20 Wt 135 kg (297 lb 9.6 oz) LMP 01/11/2021 (Within Days) SpO2 96% BMI 49.52 kg/m PAST MEDICAL HISTORY Diagnosis Date Chlamydia 08/14/2019 Chlamydia infection 06/16/2017 PCOS (polycystic ovarian syndrome) 05/11/2017 Pneumonia, organism unspecified(486) Trichomonas infection 05/04/2018 PAST SURGICAL HISTORY Procedure Laterality Date REM LESION FACE,EAR,EYE 0.6-1CM 08/27/2014 Exc. right ear helix keloid TMJ ALLERGIES Patient has no known allergies. MEDICATIONS ondansetron orally disintegrating (ZOFRAN ODT) 4 mg disintegrating tablet Take 1 tablet by mouth every 8 hours as needed for nausea/vomiting. Omeprazole Magnesium (PRILOSEC OTC) 20 mg tablet Take 1 tablet by mouth daily before breakfast. 1/2 hr before meal. Codeine-guaiFENesin 10-200 mg/5 mL liqd Take 5 mL by mouth three times daily as needed for up to 7 days. albuterol HFA (PROVENTIL HFA, VENTOLIN HFA) 90 mcg/actuation inhaler Inhale 2 Puffs as instructed every 6 hours as needed for wheezing/shortness of breath. Inhalational Spacing Device 1 Device one time only for 1 dose. predniSONE (DELTASONE) 20 mg tablet Take 2 tablets by mouth once daily for 4 days. Take daily with food. dicyclomine (BENTYL) 20 mg tablet Take 1 tablet by mouth three times daily as needed. (Patient not taking: Reported on 11/01/2022) FAMILY HISTORY Problem Relation Age of Onset Hypertension Maternal Grandmother Arthritis Maternal Grandmother Rheumotoid Cancer Maternal Grandfather Throat Diabetes Paternal Grandmother Cancer Paternal Grandfather Skin Hypertension Paternal Grandfather Colon Cancer No Family History Social History Tobacco Use Smoking status: Never Smokeless tobacco: Never Tobacco comments: dad smokes in home Vaping Use Vaping Use: Former Substance Use Topics Alcohol use: Never Drug use: No Objective Physical Exam Vitals and nursing note reviewed. Constitutional: Appearance: Normal appearance. She is obese. HENT: Right Ear: Tympanic membrane, ear canal and external ear normal. Left Ear: Tympanic membrane, ear canal and external ear normal. Nose: Nose normal. Mouth/Throat: Pharynx: Uvula midline. No oropharyngeal exudate or posterior oropharyngeal erythema. Cardiovascular: Rate and Rhythm: Normal rate and regular rhythm. Heart sounds: Normal heart sounds. Pulmonary: Effort: Pulmonary effort is normal. No respiratory distress. Breath sounds: Wheezing (slight) present. No rales. Musculoskeletal: Cervical back: Neck supple. Lymphadenopathy: Cervical: No cervical adenopathy. Skin: General: Skin is warm and dry. Findings: No erythema or rash. Neurological: Mental Status: She is alert. ASSESSMENT/PLAN: 1. Viral bronchitis - ICD9: 466.0, ICD10: J20.8 - CODEINE 10 MG-GUAIFENESIN 200 MG/5 ML ORAL LIQUID - ALBUTEROL SULFATE HFA 90 MCG/ACTUATION AEROSOL INHALER - INHALATIONAL SPACING DEVICE - PREDNISONE 20 MG TABLET - Follow-up with your PCP in 3-5 days if symptoms have not improved or sooner if symptoms worsen - Discussed red flags and need for immediate medical evaluation if any occur. - Discussed supportive care treatment with fluids, rest and analgesia. - Discussed expected course of illness Darling Vasques APRN.[facility] documented in this encounter [facility] 12-01-2022 Instructions Darling Vasques APRN.CNP - 12/01/2022 12:03 PM EDT ASSESSMENT/PLAN: 1. Viral bronchitis - ICD9: 466.0, ICD10: J20.8 - CODEINE 10 MG-GUAIFENESIN 200 MG/5 ML ORAL LIQUID - ALBUTEROL SULFATE HFA 90 MCG/ACTUATION AEROSOL INHALER - INHALATIONAL SPACING DEVICE - PREDNISONE 20 MG TABLET - Follow-up with your PCP in 3-5 days if symptoms have not improved or sooner if symptoms worsen - Discussed red flags and need for immediate medical evaluation if any occur. - Discussed supportive care treatment with fluids, rest and analgesia. - Discussed expected course of illness Darling Vasques APRN.CNP ACUTE BRONCHITIS: You have acute bronchitis. This means the airway passages in your lungs are inflamed. Bronchitis may be caused by viruses or bacteria. Inhaling cigarette smoke will always make it worse. Exposure to irritating chemicals or second hand smoke as well as allergies can contribute to bronchitis. Repeat episodes of bronchitis may cause lifelong lung problems. Acute bronchitis is usually treated with rest, fluids, cough medicine, and possibly antibiotics or inhaled medicine to open up the small airways. It is very important that you avoid smoke and drink increased amounts of fluids. A cool air vaporizer can help thin bronchial secretions. This makes it easier to cough and clear your chest. If you are a cigarette smoker, consider using nicotine gum or skin patches to help you withdraw. Recovery from bronchitis is often slow, but you should start feeling better after 2-3 days of treatment. Please call your doctor or return here if you have any of the following symptoms: Increased fever, chills, or chest pain. Severe shortness of breath or bloody sputum. Do not improve after 3 days of proper treatment. documented in this encounter [facility] 11-01-2022 Note HNO ID: [id number] Author: Ernie Baptiste APRN.CNP Service: ? Author Type: Nurse Practitioner Type: Progress Notes Filed: 11/01/2022 6:43 PM Note Text: Subjective HPI Nontoxic appearing female presents to urgent care with chief complaint of fever and cough. Duration of symptoms today. Associated symptoms with today's chief complaint are on and off headache, muscle aches, fatigue, nonproductive cough, nausea, vomiting, and fever. Patient stated symptoms started abruptly. Patient states they have used [id number] medication with some success. No known sick contacts. 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 This bothersome symptoms body aches chills and vomiting today. Patient denies any visual changes, visual disturbance, shortness of breath, rash, exercise intolerance, pleuritic pain, hemoptysis, blood in vomit or stool, productive cough,chest pain, or change in bowel or bladder habits. Denies chance of . Is not breast-feeding. .Patient presents with: Nausea AND Vomiting: Nausea, vomiting, MAYS, bodyaches and congestion x 1 day PAST MEDICAL HISTORY Diagnosis Date Chlamydia 08/14/2019 Chlamydia infection 06/16/2017 PCOS (polycystic ovarian syndrome) 05/11/2017 Pneumonia, organism unspecified(486) Trichomonas infection 05/04/2018 PAST SURGICAL HISTORY Procedure Laterality Date REM LESION FACE,EAR,EYE 0.6-1CM 08/27/2014 Exc. right ear helix keloid TMJ ALLERGIES Patient has no known allergies. MEDICATIONS Omeprazole Magnesium (PRILOSEC OTC) 20 mg tablet Take 1 tablet by mouth daily before breakfast. 1/2 hr before meal. dicyclomine (BENTYL) 20 mg tablet Take 1 tablet by mouth three times daily as needed. (Patient not taking: Reported on 11/01/2022) FAMILY HISTORY Problem Relation Age of Onset Hypertension Maternal Grandmother Arthritis Maternal Grandmother Rheumotoid Cancer Maternal Grandfather Throat Diabetes Paternal Grandmother Cancer Paternal Grandfather Skin Hypertension Paternal Grandfather Colon Cancer No Family History Social History Tobacco Use Smoking status: Never Smokeless tobacco: Never Tobacco comments: dad smokes in home Vaping Use Vaping Use: Former Substance Use Topics Alcohol use: Never Drug use: No BP 118/82 Pulse 116 Temp 37.6 ?C (99.7 ?F) (Tympanic) Resp 18 Wt (!) 138.3 kg (304 lb 12.8 oz) LMP 01/11/2021 (Within Days) SpO2 98% BMI 50.72 kg/m? Hr 101 Review of Systems Constitutional: Positive for chills, fever and malaise/fatigue. HENT: Positive for congestion and sore throat. Negative for ear discharge, ear pain and sinus pain. Eyes: Negative for blurred vision, pain, discharge and redness. Respiratory: Positive for cough. Negative for hemoptysis, sputum production, shortness of breath, wheezing and stridor. Cardiovascular: Negative for chest pain. Gastrointestinal: Positive for abdominal pain and vomiting. Negative for diarrhea and nausea. Genitourinary: Negative. Musculoskeletal: Positive for myalgias. Skin: Negative for itching and rash. Neurological: Positive for headaches. Negative for dizziness. Objective Physical Exam Constitutional: General: She is not in acute distress. Appearance: She is not diaphoretic. HENT: Head: Normocephalic. Jaw: No trismus, tenderness, swelling or pain on movement. Nose: Nose normal. Mouth/Throat: Lips: [place]. Mouth: Mucous membranes are moist. Pharynx: Oropharynx is clear. Uvula midline. No pharyngeal swelling, oropharyngeal exudate, posterior oropharyngeal erythema or uvula swelling. Eyes: Conjunctiva/sclera: Conjunctivae normal. Pupils: Pupils are equal, round, and reactive to light. Cardiovascular: Rate and Rhythm: Normal rate and regular rhythm. Heart sounds: Normal heart sounds. Pulmonary: Effort: Pulmonary effort is normal. No tachypnea, accessory muscle usage or respiratory distress. Breath sounds: Normal breath sounds. No stridor. No wheezing, rhonchi or rales. Abdominal: General: There is no distension. Palpations: Abdomen is soft. Tenderness: There is generalized abdominal tenderness. There is no guarding or rebound. Musculoskeletal: Cervical back: Normal range of motion and neck supple. No rigidity or tenderness. Lymphadenopathy: Cervical: No cervical adenopathy. Skin: General: Skin is warm and dry. Neurological: Mental Status: She is alert and oriented to person, place, and time. ASSESSMENT/PLAN: 1. Viral illness - ICD9: 079.99, ICD10: B34.9 - COVID WITH FLUA+B, ROUTINE Suspicious of COVID-19, influenza or viral gastroenteritis. Patient nontoxic-appearing. Is staying hydrated. Slightly tachycardic but slightly febrile as well. No focal tenderness. Generalized abdominal pain with palpation. No evidence of surgical abdomen. Treat conservatively at this time. Red flags for prompt reevaluation discussed. Patient was educated on supportive (more content not included)... [facility] 11-01-2022 Instructions Ernie Baptiste APRN.[facility] - 11/01/2022 6:22 PM EST How to Manage Common Symptoms Associated with COVID for Adults Fever- Fever is a temperature over 100.4 F and can occur when the body is fighting an infection. To help treat a fever: Drink plenty of fluids and stay well hydrated. Eat small amounts of easy to digest food. Rest. Your body needs rest to recover, but getting up and moving around the house frequently is a good idea. You should try to continue doing your normal daily activities (bathing, toileting, grooming, cooking), though you will probably feel tired, and need to rest often. Avoid any heavy activity or exercise, as this will increase your body temperature. Dress in light clothing and stay covered in a light sheet. Keep the room temperature cool. Take a slightly warm (not cold or cool) bath, or apply damp washcloths to the forehead and wrists. Cough- Cough is a common symptom associated with COVID and can be bothersome. To help treat a cough: Stay well hydrated. Try warm water or tea with lemon and/or honey to help soothe the cough. Use a humidifier to add moisture to the air. Try a product with menthol, like a cough drop or a rub for your chest such as Vicks, which can help reduce cough. Try cough drops. Avoid smoking and other strong odors or perfumes. Try breathing exercises to keep your lungs open and clear. Take a big deep breath through your nose and hold for 5 seconds before slowly releasing. Repeat frequently, while you are awake. Congestion- Runny nose or nasal congestion can occur with COVID. Treatment can help relieve symptoms: Try OTC nasal saline spray, or nasal saline rinse to relieve mucus congestion. Nasal strips can help keep nasal passages open, to increase airflow. Elevating your head with an extra pillow in bed can help reduce congestion. Using a humidifier can increase moisture in the air, and make breathing easier. Sore Throat- Another common symptom with COVID, can be managed at home by: Stay well hydrated. Gargle with salt water - mix teaspoon salt with 1 cup of warm water and gargle. This helps to loosen mucus in the back of the throat and may reduce discomfort. Try ice chips, popsicles or lozenges to soothe the throat. Nausea/Vomiting/Diarrhea- These are common symptoms, and staying hydrated is most important. If you are nauseous or vomiting, start with small sips of water every 10-15 minutes and increase as tolerated. You can try sucking an ice cube too. If tolerating, you can try pedialyte or Gatorade, or flat sprite or josse-chris. Start slowly and increase as you are able to. Instead of meals, try smaller, more frequent snacks. Try eating bland foods like crackers, toast, rice, and applesauce. Avoid spicy, greasy or fried foods and dairy containing foods. Even if you aren't feeling hungry due to lack of smell or taste, it is important to try to take in some food when you are able. After drinking and eating, rest in an upright position for up to two hours as needed to help decrease nauseous feelings. Try closing your eyes, avoid moving and watching TV. Avoid strong odors that can make you feel more nauseated. When to seek emergency medical attention Look for emergency warning signs for COVID-19. If having any of these symptoms, seek emergency medical care immediately: Trouble breathing Persistent pain or pressure in the chest New confusion Inability to wake or stay awake Bluish lips or face *This list is not all possible symptoms. Please call your medical provider for any other symptoms that are severe or concerning to you. documented in this encounter [facility] 11-01-2022 History of Presen t illness Narrative Subjective HPI Nontoxic appearing female presents to urgent care with chief complaint of fever and cough. Duration of symptoms today. Associated symptoms with today's chief complaint are on and off headache, muscle aches, fatigue, nonproductive cough, nausea, vomiting, and fever. Patient stated symptoms started abruptly. Patient states they have used [id number] medication with some success. No known sick contacts. 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 This bothersome symptoms body aches chills and vomiting today. Patient denies any visual changes, visual disturbance, shortness of breath, rash, exercise intolerance, pleuritic pain, hemoptysis, blood in vomit or stool, productive cough,chest pain, or change in bowel or bladder habits. Denies chance of . Is not breast-feeding. .Patient presents with: Nausea & Vomiting: Nausea, vomiting, MAYS, bodyaches and congestion x 1 day PAST MEDICAL HISTORY Diagnosis Date Chlamydia 08/14/2019 Chlamydia infection 06/16/2017 PCOS (polycystic ovarian syndrome) 05/11/2017 Pneumonia, organism unspecified(486) Trichomonas infection 05/04/2018 PAST SURGICAL HISTORY Procedure Laterality Date REM LESION FACE,EAR,EYE 0.6-1CM 08/27/2014 Exc. right ear helix keloid TMJ ALLERGIES Patient has no known allergies. MEDICATIONS Omeprazole Magnesium (PRILOSEC OTC) 20 mg tablet Take 1 tablet by mouth daily before breakfast. 1/2 hr before meal. dicyclomine (BENTYL) 20 mg tablet Take 1 tablet by mouth three times daily as needed. (Patient not taking: Reported on 11/01/2022) FAMILY HISTORY Problem Relation Age of Onset Hypertension Maternal Grandmother Arthritis Maternal Grandmother Rheumotoid Cancer Maternal Grandfather Throat Diabetes Paternal Grandmother Cancer Paternal Grandfather Skin Hypertension Paternal Grandfather Colon Cancer No Family History Social History Tobacco Use Smoking status: Never Smokeless tobacco: Never Tobacco comments: dad smokes in home Vaping Use Vaping Use: Former Substance Use Topics Alcohol use: Never Drug use: No BP 118/82 Pulse 116 Temp 37.6 C (99.7 F) (Tympanic) Resp 18 Wt (!) 138.3 kg (304 lb 12.8 oz) LMP 01/11/2021 (Within Days) SpO2 98% BMI 50.72 kg/m Hr 101 Review of Systems Constitutional: Positive for chills, fever and malaise/fatigue. HENT: Positive for congestion and sore throat. Negative for ear discharge, ear pain and sinus pain. Eyes: Negative for blurred vision, pain, discharge and redness. Respiratory: Positive for cough. Negative for hemoptysis, sputum production, shortness of breath, wheezing and stridor. Cardiovascular: Negative for chest pain. Gastrointestinal: Positive for abdominal pain and vomiting. Negative for diarrhea and nausea. Genitourinary: Negative. Musculoskeletal: Positive for myalgias. Skin: Negative for itching and rash. Neurological: Positive for headaches. Negative for dizziness. Objective Physical Exam Constitutional: General: She is not in acute distress. Appearance: She is not diaphoretic. HENT: Head: Normocephalic. Jaw: No trismus, tenderness, swelling or pain on movement. Nose: Nose normal. Mouth/Throat: Lips: [place]. Mouth: Mucous membranes are moist. Pharynx: Oropharynx is clear. Uvula midline. No pharyngeal swelling, oropharyngeal exudate, posterior oropharyngeal erythema or uvula swelling. Eyes: Conjunctiva/sclera: Conjunctivae normal. Pupils: Pupils are equal, round, and reactive to light. Cardiovascular: Rate and Rhythm: Normal rate and regular rhythm. Heart sounds: Normal heart sounds. Pulmonary: Effort: Pulmonary effort is normal. No tachypnea, accessory muscle usage or respiratory distress. Breath sounds: Normal breath sounds. No stridor. No wheezing, rhonchi or rales. Abdominal: General: There is no distension. Palpations: Abdomen is soft. Tenderness: There is generalized abdominal tenderness. There is no guarding or rebound. Musculoskeletal: Cervical back: Normal range of motion and neck supple. No rigidity or tenderness. Lymphadenopathy: Cervical: No cervical adenopathy. Skin: General: Skin is warm and dry. Neurological: Mental Status: She is alert and oriented to person, place, and time. ASSESSMENT/PLAN: 1. Viral illness - ICD9: 079.99, ICD10: B34.9 - COVID WITH FLUA+B, ROUTINE Suspicious of COVID-19, influenza or viral gastroenteritis. Patient nontoxic-appearing. Is staying hydrated. Slightly tachycardic but slightly febrile as well. No focal tenderness. Generalized abdominal pain with palpation. No evidence of surgical abdomen. Treat conservatively at this time. Red flags for prompt reevaluation discussed. Patient was educated on supportive therapies. Be seen by PCP 2 to 3 days reevaluation. Patient was instructed to immediately proceed to emergency room for any new, worsening, or symptoms lasting longer than anticipated. The patient's clinical presentation is otherwise unremarkable at this time. Based on exam and clinical finding, the patient is stable for discharge. Plan of care was discussed with patient. Patient verbalizes understanding and agrees to plan of care. This note was generated using ArthroCAD software. It may contain errors in wording, punctuation, or spelling. Ernie Baptiste APRN.[facility] documented in this encounter [facility] 08-12-2022 Instructions Keena Vazquez PA-C - 08/12/2022 3:58 PM EST Images from the original note were not included. Bowel Preparation Instructions for: Miralax-Gatorade Preparations IF YOU DO NOT FOLLOW THESE DIRECTIONS, YOUR COLONOSCOPY WILL BE CANCELLED. [place] Instructions: Your bowel must be empty so that your doctor can clearly view your colon. Follow all of the instructions in this handout EXACTLY as they are written. Do NOT eat any solid food the ENTIRE day before your colonoscopy. Buy your bowel preparation at least 5 days before your colonoscopy. Four (4) Dulcolax laxative tablets containing 5mg of bisacodyl each (NOT Dulcolax stool softener) One (1) 8.3oz. bottle Miralax (238 grams) or generic equivalent 2 x 32oz. Bottles of Gatorade (NOT RED) Diabetic Patients: Use G2 (Gatorade 2) TRANSPORTATION on the Day of Your Exam A responsible adult MUST be present with you at Check In prior to your colonoscopy and REMAIN in the endoscopy area until you are discharged. You are NOT ALLOWED to drive, take a taxi or bus, or leave the [facility] ALONE. If you do not have a responsible inventory associate and driver (family member or friend) with you to take you home, your exam cannot be done with sedation and will be cancelled. Please bring a list of all of your current medications, including any [id number] medications with you. Medications If you take insulin, diabetic medications or blood thinners such as Coumadin (warfarin), Plavix (clopidogrel), Ticlid (ticlopidine hydrochloride), Agrylin (anagrelide), Xarelto (Rivaroxaban), Pradaxa (Dabigatran), Eliquis (Apixaban), and Effient (Prasugrel). You MUST call the doctors who orders those medicines for instructions on altering the dosage before your colonoscopy. All other medications should be taken the day of the exam with a sip of water including ASPIRIN. Five (5) Days Before Your Colonoscopy Do NOT take medicines that stop diarrhea - such as Imodium, Kaopectate, or Pepto Bismol. Do NOT take fiber supplements - such as Metamucil, Citrucel, or Perdiem. Do NOT take products that contain iron - such as multi-vitamins (the label lists what is in the products). Three (3) Days Before Your Colonoscopy Do NOT eat high-fiber foods - such as popcorn, beans, seeds (flax, sunflower, quinoa), multigrain bread, nuts, salad/vegetables, or fresh and dried fruit. 1 Bowel Preparation Instructions for: Miralax-Gatorade Preparations One (1) Day Before Your Colonoscopy Only drink clear liquids the ENTIRE DAY before your colonoscopy. Do NOT eat any solid foods. Drink at least 8 ounces of clear liquids every hour after waking up. The clear liquids you can drink include: Clear Liquid (NO RED LIQUIDS) DO NOT DRINK Gatorade, Pedialyte or Powerade Clear broth or bouillon Coffee or tea (no milk or non-dairy creamer) Carbonated and non-carbonated soft drinks Prosper-Aid or other fruit flavored drinks Strained fruit juices (no pulp) Jell-O, popsicles, hard candy Water Alcohol Milk or non-dairy creamers Noodles or vegetables in soup Juice with pulp Liquid you cannot see through Do not use tobacco/vaping products Mix 1/2 of Miralax bottle (119 grams) in each 32 ounces of Gatorade bottle until dissolved. Keep cool in the refrigerator. DO NOT ADD ICE. The bowel preparation solution will be consumed in two parts. Part 1 5:00 PM - Evening before your colonoscopy Take 4 Dulcolax tablets. 6 PM - Evening before your colonoscopy Drink 32 oz. of the mixed solution. Drink an 8 oz. glass of bowel preparation every 15 minutes for a total of 4 glasses. Fifteen (15) minutes later, drink an 8 oz. glass of of clear liquids every 15 minutes for a total of 2 glasses. You may continue to drink clear liquids till midnight. Part 2 On the day of your colonoscopy you may drink clear liquids up to (three) 3 hours prior to procedure. 4 1/2 hours before your colonoscopy Take another 32 oz. bottle of mixed solution. Drink an 8 oz. glass of bowel prep every 15 minutes for a total of 4 glasses. Fifteen (15) minutes later, drink an 8 oz. glass of clear liquids every 15 minutes for a total of 2 glasses. You may continue to drink clear liquids up to (three) 3 hours before your exam. 2 08/2019 documented in this encounter [facility] 08-12-2022 History of Presen t illness Narrative CHIEF COMPLAINT: Patient presents with: Abdominal Pain: Nausea and abdominal cramping. Labs 07/19/22 This consult was requested by Ros Langley APRN.CNP for an opinion regarding abdominal pain. My final recommendations will be communicated to the requesting health care provider by way of the shared medical record for internal providers or letter via the [employer] for external providers. HPI: Kali Gonzalez is a 26 year old female who presents for Abdominal Pain (Nausea and abdominal cramping. Labs 07/19/22). PMHx of chlamydia, PCOS Mom is present today. Patient tells me that for the last year, she has been having lower abdominal pain. This comes and goes. Foods could be a trigger. Does eat a lot of dairy. Bowel movements are daily, having more diarrhea. Notes that cramping improves with bowel movements. No bloody or black stools. Will have occasionally have nausea. Rare vomiting. Having a lot of heartburn and taking Pepcid as needed. Notes issues with medication compliance. Appetite is good. Weight is stable. No smoking or alcohol use. Mom has Crohn's disease. Component Latest Ref Rng & Units 07/19/2022 WBC 3.70 - 11.00 k/uL 12.42 (H) RBC 3.90 - 5.20 m/uL 4.87 Hemoglobin 11.5 - 15.5 g/dL 12.8 Hematocrit 36.0 - 46.0 % 40.5 MCV 80.0 - 100.0 fL 83.2 MCH 26.0 - 34.0 pg 26.3 MCHC 30.5 - 36.0 g/dL 31.6 RDW-CV 11.5 - 15.0 % 14.1 Platelet Count 150 - 400 k/uL 431 (H) MPV 9.0 - 12.7 fL 8.6 (L) Neut% % 64.4 Abs Neut (ANC) 1.45 - 7.50 k/uL 8.00 (H) Lymph% % 30.0 Abs Lymph 1.00 - 4.00 k/uL 3.72 Edwards% % 3.8 Abs Edwards <0.87 k/uL 0.47 Eosin% % 1.1 Abs Eosin <0.46 k/uL 0.14 Baso% % 0.4 Abs Baso <0.11 k/uL 0.05 Immature Gran % % 0.3 IMMATURE GRANS (ABS) <0.10 k/uL 0.04 NRBC /100 WBC 0.0 Absolute nRBC <0.01 k/uL <0.01 DTYPE Auto Protein, Total 6.3 - 8.0 g/dL 7.2 Albumin 3.9 - 4.9 g/dL 4.0 Calcium 8.5 - 10.2 mg/dL 8.6 Bilirubin, Total 0.2 - 1.3 mg/dL 0.4 Alkaline Phosphatase 34 - 123 U/L 99 AST 13 - 35 U/L 17 ALT 7 - 38 U/L 21 Glucose 74 - 99 mg/dL 95 BUN 7 - 21 mg/dL 12 Creatinine 0.58 - 0.96 mg/dL 0.84 Sodium 136 - 144 mmol/L 138 Potassium 3.7 - 5.1 mmol/L 4.0 Chloride 97 - 105 mmol/L 103 CO2 22 - 30 mmol/L 26 Anion Gap 9 - 18 mmol/L 9 eGFR >=60 mL/min/1.73m 98 Record Review: [facility] / Outside records reviewed. PAST MEDICAL HISTORY Diagnosis Date Chlamydia 08/14/2019 Chlamydia infection 06/16/2017 PCOS (polycystic ovarian syndrome) 05/11/2017 Pneumonia, organism unspecified(486) Trichomonas infection 05/04/2018 PAST SURGICAL HISTORY Procedure Laterality Date REM LESION FACE,EAR,EYE 0.6-1CM 08/27/2014 Exc. right ear helix keloid TMJ Allergies: ALLERGIES No Known Allergies Medications: famotidine (PEPCID) 20 mg tablet Take 1 tablet by mouth at bedtime as needed. Omeprazole Magnesium (PRILOSEC OTC) 20 mg tablet Take 1 tablet by mouth daily before breakfast. 1/2 hr before meal. 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 Gas, Heartburn All other systems reviewed and are negative. Are you taking any blood thinners? No Physical Examination: Pulse 90 Ht 5' 5 (1.65m) Wt 307 lb (139.3kg) LMP 01/11/2021 BMI 51.09 kg/(m^2). Physical Exam Constitutional: Appearance: Normal appearance. She is obese. HENT: Head: Normocephalic and atraumatic. Eyes: General: No scleral icterus. Extraocular Movements: Extraocular movements intact. Conjunctiva/sclera: Conjunctivae normal. Pupils: Pupils are equal, round, and reactive to light. Cardiovascular: Rate and Rhythm: Normal rate and regular rhythm. Pulses: Normal pulses. Heart sounds: Normal heart sounds. Pulmonary: Effort: Pulmonary effort is normal. Breath sounds: Normal breath sounds. Abdominal: General: Abdomen is flat. Bowel sounds are normal. Palpations: Abdomen is soft. Tenderness: There is no abdominal tenderness. Musculoskeletal: General: Normal range of motion. Cervical back: Normal range of motion and neck supple. Skin: General: Skin is warm and dry. Coloration: Skin is not jaundiced. Neurological: General: No focal deficit present. Mental Status: She is alert and oriented to person, place, and time. Psychiatric: Mood and Affect: Mood normal. Behavior: Behavior normal. Thought Content: Thought content normal. Judgment: Judgment normal. Assessment/Plan (K21.9) GERD without esophagitis (primary encounter diagnosis) (R11.0) Nausea (R10.9) Abdominal cramping (R19.7) Diarrhea, unspecified type (Z83.79) Family history of Crohn's disease 1. GERD without esophagitis -- Notes consistent GERD. Does admit to being non-compliant with medications. Taking Pepcid as needed. -- Okay to continue Pepcid, can take up to 40 mg PRN -- EGD r/o esophagitis, gastritis, PUD Recommend high protein, high fiber diet. Promotion of salivation through oral lozenges/chewing gum Drink plenty of water Avoid NSAIDs (such as Advil, Ibuprofen, Excedrin, Mobic), tobacco, alcohol, carbonated beverages, caffeine, chocolate, tomato based sauces, spicy/fatty foods, and peppermint Avoid eating less than 3 hours before bed. Elevate the head of the bed 6 inches, or invest in a wedge pillow. Laying on left side with head elevated may help alleviate reflux symptoms. - EGD DIAGNOSTIC; Future 2. Nausea -- Okay to continue Pepcid, can take up to 40 mg PRN -- EGD r/o esophagitis, gastritis, PUD - EGD DIAGNOSTIC; Future 3. Abdominal cramping -- Start Bentyl 20 mg PRN TID -- Colonoscopy r/o IBD, IBS -- Recommend cutting out greasy, fatty foods. Limit sugary drinks - COLONOSCOPY DIAGNOSTIC; Future 4. Diarrhea, unspecified type -- Start Bentyl 20 mg PRN TID -- Colonoscopy r/o IBD, IBS -- Recommend cutting out greasy, fatty foods. Limit sugary drinks - COLONOSCOPY DIAGNOSTIC; Future 5. Family history of Crohn's disease -- Mom does have diagnosis of Crohn's disease Follow up in office PRN. Recommended to please call office/go to ER if fever, chills, chest pain, SOB, diarrhea, nausea, emesis, worsening abdominal pain, dehydration occurs I spent 30 minutes in the visit, with more than 50% of the total [id number] time of the visit in counseling / coordination of care. I have confirmed and edited as necessary, the PFSH and ROS obtained by others. Keena Vazquez PA-C August 12, 2022 4:08 PM documented in this encounter [facility] 06-03-2022 History of Presen t illness Narrative Images from the original note were not included. Subjective HPI Kali Gonzalez is a 26 year old female who presents with a painful tongue x 3 days. Endorses sore throat, headache and congestion since Monday05/29/2022, then painful tongue that began on 06/01/2022. States that pain is worse when eating or drinking, and is relieved by water. Pseudoephedrine and mucinex tried at home. Pt declines Covid-19 test. Pt denies recent antibiotic treatment. Pt endorses a family history of diabetes mellitus type 2 and states that she was previously told she is pre-diabetic and started on metformin, but could not tolerate side effects so is no longer taking. Pt does not have PCP. Review of Systems Constitutional: Negative for chills and fever. HENT: Positive for congestion and sore throat. Negative for ear pain. Painful tongue Eyes: Negative for discharge and redness. Respiratory: Negative for cough and shortness of breath. Gastrointestinal: Negative for abdominal pain, constipation, diarrhea, nausea and vomiting. Neurological: Positive for headaches. BP 122/80 Pulse 90 Temp 36.8 C (98.3 F) (Tympanic) Resp 18 Wt (!) 142.2 kg (313 lb 9.6 oz) LMP 01/11/2021 (Within Days) SpO2 96% BMI 52.19 kg/m PAST MEDICAL HISTORY Diagnosis Date Chlamydia 08/14/2019 Chlamydia infection 06/16/2017 PCOS (polycystic ovarian syndrome) 05/11/2017 Pneumonia, organism unspecified(486) Trichomonas infection 05/04/2018 PAST SURGICAL HISTORY Procedure Laterality Date REM LESION FACE,EAR,EYE 0.6-1CM 08/27/14 Exc. right ear helix keloid ALLERGIES Patient has no known allergies. MEDICATIONS Omeprazole Magnesium (PRILOSEC OTC) 20 mg tablet Take 1 tablet by mouth daily before breakfast. 1/2 hr before meal. nystatin (MYCOSTATIN) 100,000 unit/mL suspension Take 5 mL by mouth four times daily for 7 days. 1tsp swish in mouth for several minutes, then swallow (or expectorate) 4 times daily until gone. Drospirenone-Ethinyl Estradiol (LO-ZUMANDIMINE, 28,) 3-0.02 mg per tablet Take 1 tablet by mouth once daily. (Patient taking differently: Take 1 tablet by mouth once daily. Does not take daily ) FAMILY HISTORY Problem Relation Age of Onset Hypertension Maternal Grandmother Arthritis Maternal Grandmother Rheumotoid Cancer Maternal Grandfather Throat Diabetes Paternal Grandmother Cancer Paternal Grandfather Skin Hypertension Paternal Grandfather Social History Tobacco Use Smoking status: Never Smokeless tobacco: Never Tobacco comments: dad smokes in home Vaping Use Vaping Use: Former Substance Use Topics Alcohol use: Never Drug use: No Objective Physical Exam Vitals and nursing note reviewed. Constitutional: Appearance: Normal appearance. She is obese. HENT: Head: Normocephalic. Right Ear: Tympanic membrane and ear canal normal. Left Ear: Tympanic membrane and ear canal normal. Nose: Congestion present. Mouth/Throat: Tonsils: No tonsillar exudate or tonsillar abscesses. 0 on the right. 0 on the left. Eyes: Conjunctiva/sclera: Conjunctivae normal. Pupils: Pupils are equal, round, and reactive to light. Cardiovascular: Rate and Rhythm: Normal rate and regular rhythm. Pulmonary: Effort: Pulmonary effort is normal. Breath sounds: Normal breath sounds. Abdominal: Palpations: Abdomen is soft. Lymphadenopathy: Cervical: No cervical adenopathy. Skin: General: Skin is warm and dry. Neurological: Mental Status: She is alert. ASSESSMENT/PLAN: 1. Thrush - ICD9: 112.0, ICD10: B37.0 (primary diagnosis) - NYSTATIN 100,000 UNIT/ML ORAL SUSPENSION 2. Screening for diabetes mellitus - ICD9: V77.1, ICD10: Z13.1 - HGB A1C - ESTABLISH WITH PRIMARY CARE - NEW PATIENT Blanquita Sky APRN Student TEACHING PROVIDER (Physician/PA/ENVIRONMENTAL LEAD) NOTE OF PERSONAL INVOLVEMENT IN CARE: I have personally seen and examined the patient and performed the medical decision-making components. I have reviewed the Advanced Practice Registered Nurse (ENVIRONMENTAL LEAD) Student's documentation and verified the findings in the note as written. Any additions or changes are noted in bold/italics. Signature: Darling Vasques Date: 06/03/2022 Time: 5:19 PM documented in this encounter [facility] 06-03-2022 Instructions Blanquita Sky - 06/03/2022 3:59 PM EDT ASSESSMENT/PLAN: 1. Thrush - ICD9: 112.0, ICD10: B37.0 (primary diagnosis) - NYSTATIN 100,000 UNIT/ML ORAL SUSPENSION 2. Screening for diabetes mellitus - ICD9: V77.1, ICD10: Z13.1 - HGB A1C - ESTABLISH WITH PRIMARY CARE - NEW PATIENT Blanquita Sky APRN Student DEFINITION: White, irregularly shaped patches that coat the inside of the mouth and sometimes the tongue, adhere to the mouth, and cannot be washed away or wiped off easily like milk. (If the only symptom is a uniformly white tongue, it's due to a milk diet, not thrush.) Thrush causes mild discomfort. Bottle-fed or breast-fed child CAUSE: Thrush is caused by a yeast (Ai) that grows rapidly on the lining of the mouth in areas abraded by prolonged sucking (as when a baby sleeps with a bottle or pacifier). A large pacifier or nipple can also injure the lining of the mouth. Thrush may also occur when your child has recently been taking a broad-spectrum antibiotic. Thrush is not contagious since it does not invade normal tissue. HOME CARE: Nystatin Oral Medicine. The drug for clearing this up is nystatin oral suspension. It requires a prescription. Give 1 ml of nystatin four times daily. Place it in the front of the mouth on each side (it doesn't do any good once it's swallowed). If the thrush isn't responding, rub the nystatin directly on the affected areas with a cotton swab or with gauze wrapped around your finger. Apply it after meals, or at least don't feed your baby anything for 30 minutes after application. Do this for at least 7 days or until all the thrush has been gone for 3 days. If you are , apply nystatin to any irritated areas on your nipples. Decrease sucking time to 20 minutes per feeding. Prolonged sucking (as when a baby sleeps with a bottle or pacifier) can abrade the lining of the mouth and make it more prone to yeast infection. If sucking on a nipple is painful for your child, temporarily use a cup. If the thrush recurs and your child is bottle-fed, switch to a nipple with a different shape and made from silicone. Restrict pacifier use to bedtime. Eliminate the pacifier temporarily except when it's really needed for going to sleep. If your is using an orthodontic-type pacifier, switch to a smaller, regular one. Soak all nipples in water at 130*F (55*C), the temperature of most hot tap water, for 15 minutes. Diaper rash associated with thrush. If your child has an associated diaper rash, assume it is due to yeast. Request nystatin cream and apply it four times daily. CALL OUR OFFICE, During regular hours if: Your child refuses to drink. The thrush gets worse on treatment. The thrush lasts beyond 10 days. You have other concerns or questions. Instructions for Pediatric Patients, 2nd edition, 1999 by [employer] Written by Audi Samuel MD, associate technician and author of Your Child's Health, [employer], a book for parents. documented in this encounter [facility] 03-15-2022 Instructions Ros Langley APRN.KARO - 03/15/2022 10:56 AM EDT Obtain knee immobilizer R.I.C.E. The general care of your injury includes the following: Resting, Icing, Compressing and Elevating the injured area. Remember this as RICE. REST: Limit the use of the injured body part. ICE: By applying ice to the affected area, swelling and pain can be reduced. Place some ice cubes in a re-sealable (Ziploc) bag and add some water. Put a thin washcloth between the bag and your skin. Apply the ice bag to the area for at least 20 minutes. Do this at least 4 times per day. Using the ice for longer times and more frequently is OK. NEVER APPLY ICE DIRECTLY TO THE SKIN. COMPRESS: Compression means to apply pressure around the injured area such as with a splint, cast or an alexandria bandage. Compression decreases swelling and improves comfort. Compression should be tight enough to relieve swelling but not so tight as to decrease circulation. Increasing pain, numbness, tingling, or change in skin color, are all signs of decreased circulation. ELEVATE: Elevate the injured part. For example, elevate your foot by placing it on a chair while sitting, or propping it up on pillows when lying down. documented in this encounter [facility] 03-15-2022 History of Presen t illness Narrative This note was created using NoteWriter. Subjective Kali Gonzalez is a 26 year old female. 26 year old female with PMH GERD, PCOS presents for complaints of right knee pain. Acute onset 2 days ago Was camping States that she stepped in divot, and ultimately fell onto right knee Denies head trauma or injury. Denies neck or back pain. Denies break in skin integrity. +pain with ROM and activity. Denies prior history of right knee pain or surgery. Utilized Tylenol this morning. The history is provided by the patient. No unmanned aircraft systems roboticist was used. Right injury: Yes Date: 03/13/2022 Right condition: Acute Right severity: Mild Right progression: Stable Patient reports that right knee feels stable. Patient reports feeling right knee not locking, not popping and not catching. Right aggravating factors: Bending or twisting, change in inclines, prolonged sitting and prolonged standing. Right alleviating factors: Rest. PAST MEDICAL HISTORY Diagnosis Date Chlamydia 08/14/2019 Chlamydia infection 06/16/2017 PCOS (polycystic ovarian syndrome) 05/11/2017 Pneumonia, organism unspecified(486) Trichomonas infection 05/04/2018 PAST SURGICAL HISTORY Procedure Laterality Date REM LESION FACE,EAR,EYE 0.6-1CM 08/27/14 Exc. right ear helix keloid ALLERGIES Patient has no known allergies. MEDICATIONS Omeprazole Magnesium (PRILOSEC OTC) 20 mg tablet Take 1 tablet by mouth daily before breakfast. 1/2 hr before meal. Drospirenone-Ethinyl Estradiol (LO-ZUMANDIMINE, 28,) 3-0.02 mg per tablet Take 1 tablet by mouth once daily. FAMILY HISTORY Problem Relation Age of Onset Hypertension Maternal Grandmother Arthritis Maternal Grandmother Rheumotoid Cancer Maternal Grandfather Throat Diabetes Paternal Grandmother Cancer Paternal Grandfather Skin Hypertension Paternal Grandfather Social History Tobacco Use Smoking status: Never Smoker Smokeless tobacco: Never Used Tobacco comment: dad smokes in home Vaping Use Vaping Use: Former Substance Use Topics Alcohol use: Never Drug use: No Review of Systems Constitutional: Negative for activity change, appetite change, chills and diaphoresis. Eyes: Negative for photophobia, pain, discharge, redness, itching and visual disturbance. Respiratory: Negative for apnea, cough, choking and chest tightness. Cardiovascular: Negative for chest pain, palpitations and leg swelling. Gastrointestinal: Negative for abdominal pain, diarrhea, nausea and vomiting. Skin: Negative for color change, pallor, rash and wound. Allergic/Immunologic: Negative for environmental allergies, food allergies and immunocompromised state. Neurological: Negative for dizziness, facial asymmetry, light-headedness and headaches. Hematological: Negative for adenopathy. Does not bruise/bleed easily. Psychiatric/Behavioral: Negative for agitation and behavioral problems. Objective BP 122/66 Pulse 77 Temp 36.2 C (97.2 F) (Tympanic) Resp 18 Wt (!) 142.6 kg (314 lb 6.4 oz) LMP 01/11/2021 (Within Days) SpO2 98% BMI 52.32 kg/m Physical Exam Vitals and nursing note reviewed. Constitutional: General: She is not in acute distress. Appearance: Normal appearance. She is normal weight. She is not ill-appearing, toxic-appearing or diaphoretic. HENT: Head: Normocephalic and atraumatic. Right Ear: Ear canal and external ear normal. Left Ear: Ear canal and external ear normal. Nose: Nose normal. No congestion or rhinorrhea. Mouth/Throat: Mouth: Mucous membranes are moist. Pharynx: No oropharyngeal exudate or posterior oropharyngeal erythema. Eyes: General: Right eye: No discharge. Left eye: No discharge. Extraocular Movements: Extraocular movements intact. Conjunctiva/sclera: Conjunctivae normal. Pupils: Pupils are equal, round, and reactive to light. Cardiovascular: Rate and Rhythm: Normal rate and regular rhythm. Pulses: Normal pulses. Heart sounds: Normal heart sounds. No murmur heard. No friction rub. Pulmonary: Effort: Pulmonary effort is normal. No respiratory distress. Breath sounds: Normal breath sounds. No stridor. No wheezing, rhonchi or rales. Chest: Chest wall: No tenderness. Abdominal: General: Abdomen is flat. There is no distension. Palpations: Abdomen is soft. There is no mass. Tenderness: There is no abdominal tenderness. There is no right CVA tenderness, left CVA tenderness, guarding or rebound. Hernia: No hernia is present. Musculoskeletal: General: No swelling, deformity or signs of injury. Cervical back: Normal range of motion and neck supple. No rigidity. Right knee: Decreased range of motion. Tenderness (generalized) present. Right lower leg: No edema. Left lower leg: No edema. Comments: Right knee with generalized TTP. Negative vagus, negative valus. Guarding and painful limited active and passive ROM. Lymphadenopathy: Cervical: No cervical adenopathy. Skin: General: Skin is warm and dry. Coloration: Skin is not jaundiced or pale. Findings: No bruising, erythema, lesion or rash. Neurological: General: No focal deficit present. Mental Status: She is alert and oriented to person, place, and time. Cranial Nerves: No cranial nerve deficit. Sensory: No sensory deficit. Motor: No weakness. Coordination: Coordination normal. Gait: Gait normal. Psychiatric: Mood and Affect: Mood normal. Behavior: Behavior normal. Thought Content: Thought content normal. Judgment: Judgment normal. Assessment and Plan ASSESSMENT/PLAN: 1. Acute pain of right knee - ICD9: 719.46, ICD10: M25.561 +injury Right knee No red flags - XR KNEE GENERAL 4V AP BOTH/PA BOTH/LAT/MERC RIGHT-negative for fracture - KETOROLAC 60 MG/2 ML INTRAMUSCULAR SOLUTION-administered here in clinic. - KNEE IMMOBILIZER-RX printed off RICE therapy OTC analgesics Discussed possibility of ligamentous strain, and to follow up with ortho if symptoms persist. 2. Slipping, tripping and stumbling without falling due to stepping into hole or opening, initial encounter - ICD9: E917.9, ICD10: W18.42XA Occurred 2 days ago Denies head trauma or injury No blood thinners Complaining for right knee pain. PANCHITO Hamilton APRN.GENERAL MANAGER LAND DEPARTMENT documented in this encounter [facility] documented as of this encounter (statuses as of 03/15/2022) [facility]11-10-2014 History of Past illness Narrative* Problem Noted Date Resolved Date Keloid 07/21/2014 09/24/2014 Excessive or frequent menstruation 04/24/2012 02/08/2017 Headache(784.0) 11/17/2005 09/24/2014 Lipoma of unspecified site 11/17/200509/24 documented as of this encounter (statuses as of 06/03/2022) [address]10-2014 History of Past illness Narrative* Problem Noted Date Resolved Date Keloid 07/21/2014 09/24/2014 Excessive or frequent menstruation 04/24/2012 02/08/2017 Headache(784.0) 11/17/2005 09/24/2014 Lipoma of unspecified site 11/17/200509/24 documented as of this encounter (statuses as of 08/12/2022) [address]10-2014 History of Past illness Narrative* Problem Noted Date Resolved Date Keloid 07/21/2014 09/24/2014 Excessive or frequent menstruation 04/24/2012 02/08/2017 Headache(784.0) 11/17/2005 09/24/2014 Lipoma of unspecified site 11/17/200509/24 documented as of this encounter (statuses as of 11/02/2022) [address]-2014 History of Past illness Narrative* Problem Noted Date Resolved Date Keloid 07/21/2014 09/24/2014 Excessive or frequent menstruation 04/24/2012 02/08/2017 Headache(784.0) 11/17/2005 09/24/2014 Lipoma of unspecified site 11/17/200509/24 documented as of this encounter (statuses as of 12/01/2022) [address]10-2014 History of Past illness Narrative* Problem Noted Date Resolved Date Keloid 07/21/2014 09/24/2014 Excessive or frequent menstruation 04/24/2012 02/08/2017 Headache(784.0) 11/17/2005 09/24/2014 Lipoma of unspecified site 11/17/200509/24 documented as of this encounter (statuses as of 12/01/2022) [address]-2014 History of Past illness Narrative* Problem Noted Date Resolved Date Keloid 07/21/2014 09/24/2014 Excessive or frequent menstruation 04/24/2012 02/08/2017 Headache(784.0) 11/17/2005 09/24/2014 Lipoma of unspecified site 11/17/200509/24 documented as of this encounter (statuses as of 12/02/2022) [address]-2014 History of Past illness Narrative* Problem Noted Date Resolved Date Keloid 07/21/2014 09/24/2014 Excessive or frequent menstruation 04/24/2012 02/08/2017 Headache(784.0) 11/17/2005 09/24/2014 Lipoma of unspecified site 11/17/200509/24 documented as of this encounter (statuses as of 12/06/2022) [address]10-2014 History of Past illness Narrative* Problem Noted Date Diagnosed Date Resolved Date Keloid 07/21/2014 09/24/2014 Excessive or frequent menstruation 04/24/2012 02/08/2017 Headache(784.0) 11/17/2005 09/24/2014 Lipoma of unspecified site 11/17/2005 0 09/24/2014 documented as of this encounter (statuses as of 06/18/2023) [place] [address]-10-2014 History of Past illness Narrative* Problem Noted Date Diagnosed Date Resolved Date Keloid 07/21/2014 09/24/2014 Excessive or frequent menstruation 04/24/2012 02/08/2017 Headache(784.0) 11/17/2005 09/24/2014 Lipoma of unspecified site 11/17/2005 0 09/24/2014 documented as of this encounter (statuses as of 06/29/2023) [address]2014 History of Past illness Narrative* Problem Noted Date Diagnosed Date Resolved Date Keloid 07/21/2014 09/24/2014 Excessive or frequent menstruation 04/24/2012 02/08/2017 Headache(784.0) 11/17/2005 09/24/2014 Lipoma of unspecified site 11/17/2005 0 09/24/2014 documented as of this encounter (statuses as of 07/17/2023) [place] [address]-10-2014 History of Past illness Narrative* Problem Noted Date Diagnosed Date Resolved Date Keloid 07/21/2014 09/24/2014 Excessive or frequent menstruation 04/24/2012 02/08/2017 Headache(784.0) 11/17/2005 09/24/2014 Lipoma of unspecified site 11/17/2005 0 09/24/2014 documented as of this encounter (statuses as of 08/26/2023) [facility] Acute pain of right knee- Primary Slipping, tripping and stumbling without falling due to stepping into hole or opening, initial encounter documented in this encounter [facility] note* Diagnosis Thrush- Primary Candidiasis of mouth Screening for diabetes mellitus documented in this encounter [facility] note* Diagnosis GERD without esophagitis- Primary Esophageal reflux Nausea Nausea alone Abdominal cramping Abdominal pain, unspecified site Diarrhea, unspecified type Family history of Crohn's disease Family history of other digestive disorders documented in this encounter [facility] note* Diagnosis Viral illness- Primary Unspecified viral infection, in conditions classified elsewhere and of unspecified site documented in this encounter [facility] note* Diagnosis Viral bronchitis- Primary Acute bronchitis documented in this encounter [facility] note* Diagnosis Viral bronchitis Acute bronchitis documented in this encounter [facility] note* Diagnosis URI with cough and congestion- Primary Non-recurrent acute suppurative otitis media of left ear without spontaneous rupture of tympanic membrane documented in this encounter [facility] note* Diagnosis Viral bronchitis- Primary Acute bronchitis documented in this encounter [facility] note* Diagnosis Acute cough- Primary Rhinosinusitis Unspecified sinusitis (chronic) documented in this encounter [facility] note* Diagnosis Rhinosinusitis- Primary Unspecified sinusitis (chronic) documented in this encounter [facility] note* Diagnosis Acute vaginitis- Primary Vaginitis and vulvovaginitis, unspecified Screen for STD (sexually transmitted disease) Screening examination for venereal disease documented in this encounter [facility] for referral (narrative)* Diagnostic Procedure Only (Urgent) - Pending Review Specialty Diagnoses / Procedures Referred By Gold piña Referred To Contact XR IMAGING Diagnoses Acute pain of right knee Procedures XR KNEE GENERAL 4V AP BOTH/PA BOTH/LAT/MERC RIGHT RADIOLOGIC EXAM KNEE COMPLETE 4/MORE VIEWS Ros Langley, RIGO.GENERAL MANAGER LAND DEPARTMENT [address] [place] [address] Xr Imaging Referral ID Status Reason Start Date Expiration Date Visits Requested Visits Authorized [id number] Pending Review Auto-Generat ed Referral 03/15/2022 04/14/2023 1 1 [facility] for referral (narrative)* Outpatient Procedure (Routine) - Pending Review Specialty Diagnoses / Procedures Referred By Contac t Referred To Contact [facility] Diagnoses Abdominal cramping Diarrhea, unspecified type Procedures COLONOSCOPY DIAGNOSTIC COLONOSCOPY FLX DX W/COLLJ SPEC WHEN PFRMD Keena Vazquez PA-C [address] [place] [address] [address] Referral ID Status Reason Start Date Expiration Date Visits Requested Visits Authorized [id number] Pending Review Auto-Generat ed Referral 08/12/2022 08/12/2023 1 1 * Outpatient Procedure (Routine) - Pending Review Specialty Diagnoses / Procedures Referred By Gold piña Referred To Contact [facility] Diagnoses GERD without esophagitis Nausea Procedures EGD DIAGNOSTIC ESOPHAGOGASTRODUODENOS COPY TRANSORAL DIAGNOSTIC Keena Vazquez PA-C [address] [place] [address] [address] Referral ID Status Reason Start Date Expiration Date Visits Requested Visits Authorized [id number] Pending Review Auto-Generat ed Referral 08/12/2022 08/12/2023 1 1 [facility] Summary Purpose Family History No Family History Records FoundNo Family History Records FoundNo Family History Records Found Advance Directives No Advanced Directives Records FoundNo Advanced Directives Records FoundNo Advanced Directives Records Found Medications Administered Section Inactive Administered Medications - up to 3 most recent administrations Medication Order MAR Action Action Date Dose Rate Site keTORolac 60 mg injection (TORADOL) 60 mg, INTRAMUSCULAR, ONCE, 1 dose, On Mon03/15/22 at 1030, Ketorolac (Toradol) is indicated for the short-term (up to 5 days) management of moderately severe acute pain. Continuation of ketorolac (Toradol) beyond 5 days increases the risk of developing serious adverse events. Please verify the duration of therapy for ketorolac (Toradol)., If ordered PRN for pain, patient/guardian may elect to receive this medication for higher pain levels INSTEAD of the opioid, if preferred: Yes Given 03/15/2022 10:42 AM EDT 60 mg Buttocks, Left Reason for Referral Specialty Diagnoses / Procedures Referred By Contac t Referred To Contact FAMILY MEDICINE Diagnoses Screening for diabetes mellitus Procedures ESTABLISH WITH PRIMARY CARE NEW PATIENT OFFICE/OUTPATIENT [facility] MDM 60-74 MINUTES Darling Vasques, RIGO.GENERAL MANAGER LAND DEPARTMENT [address] [place] [address] [facility] [address] [place] [address] Referral ID Status Reason Start Date Expiration Date Visits Requested Visits Authorized [id number] Pending Review PCP Requested Referral 06/03/2022 06/03/2023 1 1 Health Concerns Infection Onset Date Last Indicated Resolved Time COVID-19 Rule-Out 11/01/2022 11/01/2022 Additional Source Comments INFORMATION SOURCE (unrecogn ized section and content) DATE CREATED AUTHOR AUTHOR'S ORGANIZ ATION 07/25/2019 [facility] DATE CREATED AUTHOR AUTHOR'S ORGANIZ ATION 08/28/2023 [facility] Source Comments (unrecognize d section and content) In the event this informatio n is protected by the Federal Confidentiality of Alcohol and Drug Abuse Patient Records regulations: The Federal rules restrict any use of the information to criminally investigate or prosecute any alcohol or drug abuse patient.[facility] event this information is protected by the Federal Confidentiality of Alcohol and Drug Abuse Patient Records regulations: The Federal rules restrict any use of the information to criminally investigate or prosecute any alcohol or drug abuse patient.[facility] the event this information is protected by the Federal Confidentiality of Alcohol and Drug Abuse Patient Records regulations: The Federal rules restrict any use of the information to criminally investigate or prosecute any alcohol or drug abuse patient.[facility] the event this information is protected by the Federal Confidentiality of Alcohol and Drug Abuse Patient Records regulations: The Federal rules restrict any use of the information to criminally investigate or prosecute any alcohol or drug abuse patient.[facility] the event this information is protected by the Federal Confidentiality of Alcohol and Drug Abuse Patient Records regulations: The Federal rules restrict any use of the information to criminally investigate or prosecute any alcohol or drug abuse patient.[facility] the event this information is protected by the Federal Confidentiality of Alcohol and Drug Abuse Patient Records regulations: The Federal rules restrict any use of the information to criminally investigate or prosecute any alcohol or drug abuse patient.[facility] the event this information is protected by the Federal Confidentiality of Alcohol and Drug Abuse Patient Records regulations: The Federal rules restrict any use of the information to criminally investigate or prosecute any alcohol or drug abuse patient.[facility] the event this information is protected by the Federal Confidentiality of Alcohol and Drug Abuse Patient Records regulations: The Federal rules restrict any use of the information to criminally investigate or prosecute any alcohol or drug abuse patient.[facility] the event this information is protected by the Federal Confidentiality of Alcohol and Drug Abuse Patient Records regulations: The Federal rules restrict any use of the information to criminally investigate or prosecute any alcohol or drug abuse patient.[facility] the event this information is protected by the Federal Confidentiality of Alcohol and Drug Abuse Patient Records regulations: The Federal rules restrict any use of the information to criminally investigate or prosecute any alcohol or drug abuse patient.[facility] the event this information is protected by the Federal Confidentiality of Alcohol and Drug Abuse Patient Records regulations: The Federal rules restrict any use of the information to criminally investigate or prosecute any alcohol or drug abuse patient.[facility] the event this information is protected by the Federal Confidentiality of Alcohol and Drug Abuse Patient Records regulations: The Federal rules restrict any use of the information to criminally investigate or prosecute any alcohol or drug abuse patient.[facility] Reason for Visit (unrecogniz ed section and content) Reason Comments sore tongue Sore tongue x [address], runny nose and MAYS that started 5 days ago Specialty Diagnoses / Procedures Referred By Contac t Referred To Contact [facility] / [facility] Diagnoses Thrush on tongue Procedures OFFICE/OUTPATIENT NEW MODERATE MDM 45-59 MINUTES NEW SAME DAY Self Express Cl [facility] [address] [place] [address] Referral ID Status Reason Start Date Expiration Date Visits Re quested Visits Authorized [id number] Closed 06/03/2022 09/10/2022 1 1 Reason Comments Abdominal Pain Nausea and abdominal cramping. Labs 07/19/22 Specialty Diagnoses / Procedures Referred By Contac t Referred To Contact GASTROENTEROLOGY Diagnoses Generalized abdominal pain; Gastroesophageal reflux disease, unspecified whether esophagitis present Procedures REFERRAL TO [facility] FINANCIAL COUNSELOR NEW DDI PATIENT LangleyRos APRN.GENERAL MANAGER LAND DEPARTMENT [address] [place] [address] Keena Vazquez PA-C [address] [facility] [place] [place] [address] Referral ID Status Reason Start Date Expiration Date V isits Requested Visits Authorized [id number] Closed Financial Clearance Required - [employer] Pay[employer] 08/12/2022 09/10/2022 1 1 Reason Comments Nausea & Vomiting Nausea, vomiting, MAYS , bodyaches and congestion x 1 day Reason Comments Cough Chest congestion, agust[place] dy aches x 4 days Specialty Diagnoses / Procedures [facility] Diagnoses cough, chest congestion and bodyaches Procedures OFFICE/OUTPATIENT ESTABLISHED MOD MDM 30-39 MIN EST SAME DAY Shanna Camejo Darling Vasques APRN.GENERAL MANAGER LAND DEPARTMENT [address] [place] [id number] Referral ID Status Reason Start Date Expiration Date Visits Re quested Visits Authorized [id number] Closed 12/01/2022 09/10/2023 1 1 Reason Comments Medication Request Patient Update Reason Comments Medication Problem Reason Comments Ear Pain Left ear pain x 1 da y and congestion and cough x 1 week Specialty Diagnoses / Procedures Referred By Contac t Referred To Contact [facility] Diagnoses Left ear pain Left ear pain, congestion Procedures OFFICE/OUTPATIENT ESTABLISHED MOD MDM 30-39 MIN EST SAME DAY Self Express Cl [facility] [address] [place] [phone] Referral ID Status Reason Start Date Expiration Date Visits Re quested Visits Authorized [id number] Closed 12/06/2022 09/10/2023 1 1 Reason Comments Chest Congestion nasal drainage, coug h x 1 week Reason Comments Cough Congestion, fever, b gilda aches, nausea, vomiting, stomach aches x 1.5 weeks Reason Comments Cough Sinus pressure and d rainage, congestion x4 weeks Reason Comments Vaginal Problem Care Teams (unrecognized sec tion and content) Hand Etcher Relationship Specialty Start Date End Date Shanna Camejo PCP - General 12/01/22 Hand Etcher Relationship Specialty Start Date End Date Shanna Camejo (Historical) PCP - General 12/01/22 Hand Etcher Relationship Specialty Start Date End Date Shanna Camejo (Historical) PCP - General 12/01/22 Hand Etcher Relationship Specialty Start Date End Date Shanna Camejo (Historical) PCP - General 12/01/22 Hand Etcher Relationship Specialty Start Date End Date Shanna Camejo (Historical) PCP - General 12/01/22 FOR RECORDS PERTAINING TO PATIENTS WHO ARE OR HAVE BEEN ENROLLED IN A CHEMICAL DEPENDENCY/SUBSTANCEABUSE PROGRAM, SOME INFORMATION MAY BE OMITTED. This clinical summary was aggregated from multiple sources. Caution should be exercised in using it in the provision of clinical care. This summary normalizes information from multiple sources, and as a consequence, information in this document may materially change the coding, format and clinical context of patient data. In addition, data may be omitted in some cases. CLINICAL DECISIONS SHOULD BE BASED ON THE PRIMARY CLINICAL RECORDS. [employer] provides no warranty or guarantee of the accuracy or completeness of information in this document.
== END | disposition home or self-care (01) ==
PROVIDERS: PCP Internal Medicine; Referring Provider Otolaryngology; Visit Provider Otolaryngology
DX: J32.9 Chronic sinusitis, unspecified (principal)
CPT/HCPCS: 87070; 87205

== ENCOUNTER → 2025-03-20 | Outpatient (CLI) | payer MEDICAID, SELFPAY ==
[2025-03-20 11:17] LABS: Hematocrit 39.7 % (37-47); Hemoglobin 12.4 g/dL (12.0-15.0); Immature Granulocytes Count 0.050 X10^3/uL (0.0-0.0); Mean Corp Hgb Conc 31.2 g/dL (32-36); Mean Corpuscular Volume 82.0 fL (81-99); Mean Platelet Vol. 8.6 fl (6.2-12.0); NRBC Flagged by Analyzer 0 % (0-5); Platelet Count 446 K/mm3 (150-450); RBC Distribution Width CV 14.1 % (11.6-14.6); RBC Distribution Width SD 41.2 fl (35.1-43.9); Red Blood Count 4.84 M/mm3 (4.2-5.4); White Blood Count 10.0 K/mm3 (4.4-11.0)
[2025-03-20 12:20] LABS: AST(SGOT) 16 U/L (<=31); Alanine Aminotransfer ALT/SGPT 14 U/L (<=34); Albumin, Serum 4.0 g/dL (3.5-5.0); Alkaline Phosphatase 111 U/L (35-104); Anion Gap 10 (5-15); BUN 16 mg/dL (4-19); BUN/Creat Ratio 16.5 RATIO (10-20); Calcium,Total 9.0 mg/dL (7.6-11.0); Carbon Dioxide 23.8 mmol/L (21.0-32.0); Chloride 106 mmol/L (98-108); Globulin 3.5 g/dL (2.2-4.2); Glucose 87 mg/dL (70-99); Potassium 4.3 mmol/L (3.3-5.1)
== END | disposition home or self-care (01) ==
LOC: LAB 10:38
PROVIDERS: PCP Internal Medicine; Referring Provider Nurse Practitioner Acute Care; Visit Provider Nurse Practitioner Acute Care
DX: K76.0 Fatty (change of) liver, not elsewhere classified (principal); K59.00 Constipation, unspecified; K31.84 Gastroparesis; E66.9 Obesity, unspecified; K21.9 Gastro-esophageal reflux disease without esophagitis
CPT/HCPCS: 80053; 85025; 86706